=== PATIENT | female | born 1950 | race Caucasian/White ===

== ENCOUNTER 2022-10-15 12:05 | Outpatient (REF) | payer MEDICARE, SELFPAY ==
[2022-10-15 12:21] LABS: MANUAL DIFF FLAG NO
[2022-10-15 13:42] LABS: Basophils Percent Auto 0.6 % (0-2); Eosinophils Absolute Auto 0.3 X10*3/uL (0.0-0.4); Eosinophils Percent Auto 4.9 % (0-4); Hematocrit 37.8 % (37.0-47.0); Hemoglobin 12.5 g/dl (12.0-16.0); Imm Gran Abs Auto 0.01 X10*3/uL (0.00-0.03); Imm Gran Pct Auto 0.2 % (0.0-0.4); Lymphocytes Absolute Auto 2.3 X10*3/uL (1.2-4.9); Lymphocytes Percent Auto 45.7 % (20-40); Mean Corpuscular HGB Conc 33.1 g/dl (31.0-35.0); Mean Corpuscular Hemoglobin 32.5 pg (27.0-33.0); Mean Corpuscular Volume 98.2 fL (80.0-98.0); Mean Platelet Volume 9.6 fL (9.4-12.3); Monocytes Absolute Auto 0.4 X10*3/uL (0.1-1.2); Monocytes Percent Auto 8.4 % (2-11); Neutrophils Absolute Auto 2.1 x10*3/uL (2.0-8.3); Neutrophils Percent Auto 40.2 % (45-73); Platelet Count 302 X10*3/uL (160-400); Red Blood Count 3.85 X10*6/uL (4.20-5.50); Red Cell Distribution Width 13.1 % (11.0-16.0); White Blood Count 5.1 X10*3/uL (4.8-10.8)
[2022-10-15 14:26] LABS: Alanine Aminotransferase 25 U/L (0-31); Albumin Level 4.3 g/dL (3.5-5.0); Alkaline Phosphatase 84 U/L (39-117); Anion Gap 10 (12-20); Aspartate Amino Transferase 28 U/L (5-31); Bilirubin Total 0.3 mg/dL (0.0-1.0); Blood Urea Nitrogen 16 mg/dL (9-16); Carbon Dioxide 28 mmol/L (22-29); Chloride 105 mmol/L (96-108); Estimated Glomerular Filt Rate > 60; Glucose Random 100 mg/dL (60-115); Potassium 4.3 mmol/L (3.3-5.1); Sodium 139 mmol/L (135-145); Total Protein 6.5 g/dL (6.5-8.0)
[2022-10-15 14:39] LABS: Phenytoin Dilantin 2.6 ug/mL (10.0-20.0)
[2022-10-24 07:48] LABS: Other Ref Test - Misc SEE EMR
== END 2022-10-15 12:06 | disposition home or self-care (01) ==
LOC: HO.LAB 12:05
PROVIDERS: Visit Provider Nurse Practitioner Family
DX: G62.9 Polyneuropathy, unspecified (principal); R25.2 Cramp and spasm; Z79.899 Other long term (current) drug therapy
CPT/HCPCS: 80053; 80185; 85025

== ENCOUNTER → 2023-03-25 11:28 | Outpatient (BNVA) | payer MEDICARE, SELFPAY | PROVIDERS: PCP Internal Medicine; Visit Provider Nurse Practitioner Family | DX: R25.2 Cramp and spasm (principal); G62.9 Polyneuropathy, unspecified; G25.81 Restless legs syndrome | CPT/HCPCS: 99212 ==

== ENCOUNTER 2023-08-25 10:46 | Outpatient (AMB) | payer MEDICARE, SELFPAY ==
--- NOTE | 2023-08-25 10:53 | MHC.OFFVIS ---
Intake Vital Signs 08/25/23 10:54 Height 5 ft 6.5 in Weight 175 lb BMI 27.8 BP 112/78 Blood Pressure Location Rt brachial Position Sitting Pulse 75 Pulse Source Pulse Oximeter Pulse Oximetry (%) 97 Oxygen Delivery Method Room Air Intake Visit Reasons: 4m follow up-Confirmed Intake Note: Patient presents for 4 month follow up. Patient states no issues or concerns, everythings the same. Allergies house dust Allergy (Unknown, Verified 08/25/23 11:02) Unknown Medication List - Last Reconciled 08/25/23 by JANUARY Lomas albuterol sulfate 90 mcg/actuation 1 inh inhalation Q4-6H PRN amlodipine 5 mg PO DAILY amoxicillin-pot clavulanate 875-125 mg 1 tab PO BID cetirizine (24Hour Allergy) 10 mg PO DAILY PRN cyanocobalamin (vitamin B-12) 1,000 mcg PO DAILY diclofenac sodium 1% grams topical BID-TID fluticasone propionate 50 mcg/actuation 2 sprays intranasal DAILY gabapentin 300 mg orally 5 x's per day; 90 days ipratropium bromide intranasal melatonin 10 mg PO BEDTIME PRN omeprazole 20 mg PO DAILY phenytoin sodium extended 100 mg PO TID potassium mg PO DAILY ropinirole 1 mg PO BEDTIME tacrolimus-niacinamide 0.1-4 % ea topical tiotropium-olodaterol 2.5-2.5 mcg/actuation (Stiolto Respimat) 2 puffs inhalation DAILY trihexyphenidyl 1 mg (1/2 x 2 mg) PO BID 30 days vitamin B complex (Super B [id number]) PO HPI HPI Comments History of Present Illness Details 73-yr-old female presents for f/u visit. Pt is currently being treated for a sinus infection. She is scheduled to have pulmonary eval following her sinusitis tx. She continues to have frequent svere cramps. Can occur in her thoracic region, but also elsewhere. Her fingers may spasms and become stuck/postured. When the cramps happen in her lower extremities- toes/feet/ankles she may lose her balance and fall. The cramps can happen at rest- for instance took a 5 hr flight and had cramps x's 4.5 of the 5 hrs. The cramps can occur when walking as well. She did not tolerate Trihexyohenidyl. While on vacation- she forget to take her medications - and states whether she took them or not- her cramps were the same. Her RLS s/s are stable- she may feel some restlessness in her legs say when watching TV/movie. She takes the requip which is helpful. [facility] Surgical History H/O rotator cuff surgery History of knee replacement procedure of right knee History of knee replacement procedure of left knee Family History Father Diabetes Myocardial infarction Brother Diabetes Myocardial infarction Mother Myocardial infarction Brother Myocardial infarction Sister Diabetes Dementia Social History Alcohol intake: current Alcohol intake frequency: holidays/special occasions only Patient Tobacco Use Status: Former Tobacco user Quit Date: 20 years ago Review of Systems Const All systems reviewed & are unremarkable except as noted in HPI and below Physical Exam Vital Signs: Last Vital Signs Pulse 75 08/25/23 10:54 BP 112/78 08/25/23 10:54 Pulse Ox 97 08/25/23 10:54 Oxygen Delivery Method Room Air 08/25/23 10:54 BMI result Body Mass Index 27.8 Const General: cooperative and no acute distress Orientation/consciousness: patient oriented x3 HEENT Head: Yes normocephalic Resp Effort & Inspection: normal respiratory effort and able to speak in complete sentences Neuro General: patient oriented x3, gait normal and CN's II-XI intact bilaterally Cognition (Neuro): normal cognition Motor exam (neuro): 5/5 motor strength present throughout Psych Appearance: grossly normal Mental Status: mental status grossly normal Speech and movement: Normal speech and movement present Affect: normal affect Attitude: cooperative Thought process: Normal thought process present Thought content: Normal thought content present Insight: Good insight present (Psych) Judgement: Good judgement present (Psych) Assessment & Plan Assessment & Plan (1) Cramp and spasm: Comment: anti-RAY AB- normal Code(s): R25.2 - Cramp and spasm (2) Restless leg syndrome: Code(s): G25.81 - Restless legs syndrome (3) Peripheral neuropathy: Code(s): G62.9 - Polyneuropathy, unspecified Plan For cramps/spasms- Stop Trihexyphenidyl- not tolerated. Trial Baclofen 10mg- start 1 tab qhs, may increase to 1 tab TID. Decrease Gabapentin 300mg po from 5 x's to 3 x's per day Slowly wean off phenytoin- does not seem to be helpful. Future considerations- Diazepam. For RLS: Continue Ropinirole 1-2mg qhs prn ? f/u in March (pt will be in [place] over the winter) or sooner prn new/worsening s/s. Medications: New baclofen 10 mg PO TID 30 days 90 tabs 3RF Discontinued trihexyphenidyl give with food (meal/snack) Discontinued Reason: Doctor's Order 1 mg (1/2 x 2 mg) PO BID 30 days 30 tabs 1RF Coding Level of Care Code Est Pt Level 4 (53357) Diagnoses Cramp and spasm R25.2 Restless leg syndrome G25.81 Peripheral neuropathy G62.9
[2023-08-25 10:54] VITALS: BP 112/78; PULSE 75; O2SAT 97; BMI 27.8
== END 2023-08-25 11:29 | disposition home or self-care (01) ==
PROVIDERS: Visit Provider Nurse Practitioner Family
DX: G25.81 Restless legs syndrome (principal); G62.9 Polyneuropathy, unspecified
CPT/HCPCS: 99214

== ENCOUNTER → 2023-08-25 10:46 | Outpatient (BNVA) | payer MEDICARE, SELFPAY | PROVIDERS: Visit Provider Nurse Practitioner Family | DX: G25.81 Restless legs syndrome (principal); G62.9 Polyneuropathy, unspecified; R25.2 Cramp and spasm | CPT/HCPCS: 99212 ==

== ENCOUNTER 2024-03-10 12:44 | Outpatient (REF) | payer MEDICARE, SELFPAY ==
[2024-03-10 16:57] LABS: MANUAL DIFF FLAG NO
[2024-03-10 16:59] LABS: Basophils Percent Auto 0.7 % (0-2); Eosinophils Absolute Auto 0.2 X10*3/uL (0.0-0.4); Eosinophils Percent Auto 4.2 % (0-4); Hematocrit 37.4 % (37.0-47.0); Hemoglobin 12.6 g/dl (12.0-16.0); Imm Gran Abs Auto 0.01 X10*3/uL (0.00-0.03); Imm Gran Pct Auto 0.2 % (0.0-0.4); Lymphocytes Absolute Auto 2.8 X10*3/uL (1.2-4.9); Lymphocytes Percent Auto 48.5 % (20-40); Mean Corpuscular HGB Conc 33.7 g/dl (31.0-35.0); Mean Corpuscular Volume 97.9 fL (80.0-98.0); Mean Platelet Volume 9.4 fL (9.4-12.3); Monocytes Absolute Auto 0.5 X10*3/uL (0.1-1.2); Monocytes Percent Auto 8.6 % (2-11); Neutrophils Absolute Auto 2.1 x10*3/uL (2.0-8.3); Neutrophils Percent Auto 37.8 % (45-73); Platelet Count 267 X10*3/uL (160-400); Red Blood Count 3.82 X10*6/uL (4.20-5.50); Red Cell Distribution Width 13.5 % (11.0-16.0); White Blood Count 5.7 X10*3/uL (4.8-10.8)
[2024-03-10 17:18] LABS: Alanine Aminotransferase 36 U/L (0-31); Albumin Level 4.2 g/dL (3.5-5.0); Alkaline Phosphatase 68 U/L (39-117); Anion Gap 13 (12-20); Aspartate Amino Transferase 37 U/L (5-31); Bilirubin Total 0.3 mg/dL (0.0-1.0); Blood Urea Nitrogen 16 mg/dL (9-16); Calcium 9.5 mg/dL (8.4-10.2); Carbon Dioxide 26 mmol/L (22-29); Chloride 105 mmol/L (96-108); Estimated Glomerular Filt Rate 52; Glucose Random 114 mg/dL (60-115); Sodium 140 mmol/L (135-145); Total Protein 6.8 g/dL (6.5-8.0)
== END 2024-03-10 12:45 | disposition home or self-care (01) ==
LOC: HO.HKASLDS 12:44
PROVIDERS: PCP Internal Medicine; Visit Provider Nurse Practitioner Family
DX: G62.9 Polyneuropathy, unspecified (principal); R20.2 Paresthesia of skin; R25.2 Cramp and spasm
CPT/HCPCS: 36415; 80053; 85025; 99212

== ENCOUNTER 2024-03-10 12:44 | Outpatient (AMB) | payer MEDICARE, SELFPAY ==
--- NOTE | 2024-03-10 12:51 | MHC.OFFVIS ---
Vital Signs 03/10/24 12:52 Height 5 ft 6.5 in Weight 172 lb BMI 27.3 BP 112/70 Blood Pressure Location Rt brachial Position Sitting Pulse 75 Pulse Source Pulse Oximeter Pulse Oximetry (%) 96 Oxygen Delivery Method Room Air Intake Visit Reasons: 7 mnts f/u appt - LVM w/ add Intake Note: Patient presents for 7 months follow up. Patient still experiencing muscle cramps nothing has chnaged Allergies house dust Allergy (Unknown, Verified 03/10/24 12:55) Unknown Medication List - Last Reconciled 03/10/24 by JANUARY Lomas albuterol sulfate 90 mcg/actuation 1 inh inhalation Q4-6H PRN amlodipine 5 mg PO DAILY amoxicillin-pot clavulanate 875-125 mg 1 tab PO BID baclofen 10 mg PO TID 30 days carbamazepine ER (Tegretol XR) 100 mg PO BID 30 days celecoxib (Celebrex) 50 mg PO BID cetirizine (24Hour Allergy) 10 mg PO DAILY PRN cyanocobalamin (vitamin B-12) 1,000 mcg PO DAILY diclofenac sodium 1% grams topical BID-TID fluticasone propionate 50 mcg/actuation 2 sprays intranasal DAILY gabapentin 300 mg orally 5 x's per day; 90 days ipratropium bromide intranasal melatonin 10 mg PO BEDTIME PRN omeprazole 20 mg PO DAILY phenytoin sodium extended 100 mg PO TID potassium mg PO DAILY ropinirole 1 mg PO BEDTIME tacrolimus-niacinamide 0.1-4 % ea topical tiotropium-olodaterol 2.5-2.5 mcg/actuation (Stiolto Respimat) 2 puffs inhalation DAILY vitamin B complex (Super B [id number]) PO HPI Comments Details: 73-yr-old female presents for f/u visit. Pt reports while she was in [place], She had a recent trigger finger repair due to acute onset of right hand pain. She is due to have a RUE CTS repair, and right thumb repair. Pt continues to have muscle cramps with rest and with movement. The cramps can come on in sleep- recently bilateral knees locked while sleeping. If sleeping and open her eyes, her whole body can tighten. Turning to look at something, grabbing something will induce cramps. Cramps can occur in her back, either or both arms and legs, feet. She may have a a couple of days w/o cramps, but then the cramps start again. Baclofen was not very helpful. Still using gabapentin. She decrease phenytoin to 1 cap per day. She also notes bilateral posterior ear and left inner ear and pinna, and bilateral facial itchiness. Once she starts scratching, it is hard to stop. She had a fall in [place] around 02/18/24, bumped into the edge of a wall, hit her head on the wall, and landed on her knees. Left lateral eye and cheek was bruised, bruising subsided but still has left mandibular discomfort. She also has left foot- feels cold (but not to the touch) and tingling (like it is falling asleep). Left ankle internally rotates- has a brace. She notes she has been gradually having more difficulty walking. 03/08/24, RUE EMG/NCS: IMPRESSION: ?Abnormal study. -There is nerve conduction study evidence of a [id number] right median mononeuropathy at the wrist (consistent with a clinical diagnosis of carpal tunnel syndrome), including focal sensory fiber demyelination and sensory greater than motor axon loss. ?There is EMG evidence of acute and chronic denervation affecting the right abductor pollicis brevis muscle. -No nerve conduction study evidence of a right ulnar neuropathy at the wrist or elbow (cubital tunnel syndrome) or superficial radial neuropathy. -No nerve conduction study evidence of a large-fiber sensorimotor polyneuropathy affecting the right upper extremity. -No EMG evidence of a right brachial plexopathy or right C6-T1 radiculopathies. [facility] Surgical History H/O rotator cuff surgery History of knee replacement procedure of right knee History of knee replacement procedure of left knee Family History Father Diabetes Myocardial infarction Brother Diabetes Myocardial infarction Mother Myocardial infarction Brother Myocardial infarction Sister Diabetes Dementia Social History Alcohol intake: current Alcohol intake frequency: holidays/special occasions only Patient Tobacco Use Status: Former Tobacco user Quit Date: 20 years ago Review of Systems Const All systems reviewed & are unremarkable except as noted in HPI and below Physical Exam Vital Signs: Last Vital Signs Pulse 75 03/10/24 12:52 BP 112/70 03/10/24 12:52 Pulse Ox 96 03/10/24 12:52 Oxygen Delivery Method Room Air 03/10/24 12:52 BMI result Body Mass Index 27.3 Const General: cooperative and no acute distress Orientation/consciousness: patient oriented x3 HEENT Head: Yes normocephalic Resp Effort & Inspection: normal respiratory effort and able to speak in complete sentences Neuro Other: Mild decreased strength in bilateral lower extremities 5- out of 5. BLE decreased foot taps, more so on left General: patient oriented x3, gait normal and CN's II-XI intact bilaterally Cognition (Neuro): normal cognition Psych Appearance: grossly normal Mental Status: mental status grossly normal Speech and movement: Normal speech and movement present Affect: normal affect Attitude: cooperative Thought process: Normal thought process present Assessment & Plan Assessment & Plan (1) Cramp and spasm: Comment: anti-RAY AB- normal Code(s): R25.2 - Cramp and spasm Category: Medical (2) Gait difficulty: Code(s): R26.9 - Unspecified abnormalities of gait and mobility Category: Medical (3) Paresthesia: Code(s): R20.2 - Paresthesia of skin Category: Medical Plan Patient advised to undergo brain MRI with and without contrast due to paresthesias, gait changes, asymmetric foot taps, cramps and spasms. We will check baseline CBC and CMP. For cramps/spasms- Trial carbamazepine ER 100 mg b.i.d.- may start after her upcoming trip. Baclofen 10mg- 1 tab TID prn Gabapentin 300mg po 3-5 x's per day Slowly wean off phenytoin- does not seem to be helpful. Previous trials: Trihexyphenidyl not tolerated. Future considerations- Diazepam. ? For RLS: Continue Ropinirole 1-2mg qhs prn Orders: Orders MR head/brain wo/w con Today R20.2 - Paresthesia of skin, R25.2 - Cramp and spasm, R26.9 - Unspecified abnormalities of gait and mobility Comprehensive Met. Panel Today G62.9 - Polyneuropathy, unspecified, R20.2 - Paresthesia of skin, R25.2 - Cramp and spasm Complete Blood Count Auto Diff Today G62.9 - Polyneuropathy, unspecified, R20.2 - Paresthesia of skin, R25.2 - Cramp and spasm Medications: New carbamazepine ER (Tegretol XR) 100 mg PO BID 60 tabs 3RF 30 days Refilled gabapentin 300 mg orally 5 x's per day; 540 caps 1RF 90 days Coding Level of Care Code Est Pt Level 4 (64809) Diagnoses Cramp and spasm R25.2 Gait difficulty R26.9 Paresthesia R20.2
[2024-03-10 12:52] VITALS: BP 112/70; PULSE 75; O2SAT 96; BMI 27.3
== END 2024-03-10 13:56 | disposition home or self-care (01) ==
PROVIDERS: PCP Internal Medicine; Visit Provider Nurse Practitioner Family
DX: R25.2 Cramp and spasm (principal); R26.9 Unspecified abnormalities of gait and mobility; R20.2 Paresthesia of skin
CPT/HCPCS: 99214

== ENCOUNTER 2025-03-31 12:43 | Outpatient (AMB) | payer MEDICARE, SELFPAY ==
--- OUTSIDE RECORDS SUMMARY | 2025-03-31 12:46 | XMS_ITS | Encounter Summary ---
Author Organization [facility] Address [address] [place] [address] Care Team Providers Care Marker Shipments Name Role Phone John Gallego MD Primary Care Provider Unavailab le Encounter Details Date Type Department Care Team (Late Contact Info) Description 02/23/2025 Lab Requisition [facility] - Main Lab [address] [facility] [place] [phone] Valente Layne PA [address] [place] [address] Cystitis, unspecified without hematuria; Urinary tract infection, site not specified Social History Tobacco Use Types Packs/Day Years Used Date Smoking Tobacco: Never Assessed Comments Unknown Sex and Gender Information Value Date Recorded Sex Assigned at Not on file Legal Sex Female 6:02 AM EST Gender Identity Not on file Sexual Orientation Not on file documented as of this encounter Plan of Treatment Upcoming Encounters Date Type Department Care Team (Late Contact Info) Description 06/03/2025 11:20 AM EDT Office Visit Gastroenterology - [address] [facility] [address] [place] [phone] Elmira Weiss PA [address] [facility] [address] [place] [address] documented as of this encounter Procedures Procedure Name Priority Date/Time Associated Diagnosis Comments CULTURE URINE Routine 02/23/2025 12:00 AM EDT Cystitis, unspecified without hematuria Urinary tract infection, site not specified documented in this encounter Results * Culture urine (02/23/2025 12:00 AM EDT) Culture, Urine 10,000-49,000 CFU/mL Mixed urogenital bela, no uropathogens present. Suggest repeat specimen if clinically indicated. 02/24/2025 2:24 PM EDT [facility] Urine Urine specimen obtained by clean catch procedure / Unknown 02/23/2025 02/23/2025 6:14 PM EDT [facility] MICROBIOLOGY - [facility]ID WALKER Final Result [facility] [address] [place] [address], documented in this encounter Visit Diagnoses Diagnosis Cystitis, unspecified without hematuria Urinary tract infection, site not specified documented in this encounter Care Teams Marker Shipments Relationship Specialty Start Date End Date John Gallego MD PCP - General Internal Medicine 09/29/24 documented as of this encounter
--- OUTSIDE RECORDS SUMMARY | 2025-03-31 12:46 | XMS_ITS | Clinical Summary ---
Author Organization [facility] Address [address] [place] [address] Care Team Providers Care Legal Clerk Name Role Phone Nir Sun MD Primary Care Provider [phone]- [phone] Allergies No known active allergies Medications albuterol (PROVENTIL;VENT STEPHANIE) 90 mcg/actuation inhaler 0 Active gabapentin (NEURONTIN) 300 mg capsule 0 Active phenytoin (DILANTIN) 100 mg ER capsule 0 Active pantoprazole (PROTONIX) 40 mg EC tablet Take 40 mg by mouth 1 (one) time each day. 0 Active atorvastatin (LIPITOR) 20 mg tablet TAKE 1 TABLET BY MOUTH DAILY,X90 DAYS,INSTR AFTER SUPPER 0 Active fluticasone propionate (FLONASE) 50 mcg/actuation nasal spray Administer 2 sprays into each nostril 1 (one) time each day. 0 Active budesonide-form oteroL (SYMBICORT) 160-4.5 mcg/actuation inhaler Inhale 2 puffs 2 (two) times a day. Rinse mouth with water after use to reduce aftertaste and incidence of candidiasis. Do not swallow. Active tacrolimus (PROTOPIC) 0.1 % ointment Apply topically 2 (two) times a day. Active Social History Tobacco Use Types Packs/Day Years Used Date Smoking Tobacco: Former Smokeless Tobacco: Never Comments Unknown Sex and Gender Information Value Date Recorded Sex Assigned at Not on file Legal Sex Female 2:36 PM EST Gender Identity Not on file Sexual Orientation Not on file Last Filed Vital Signs Vital Sign Reading Time Taken Comments Blood Pressure 125/72 05/22/2023 7:00 PM EDT Pulse 63 05/22/2023 7:00 PM EDT Temperature 36.6 ??C (97.8 ??F) 05/22/2023 4:00 PM ED T Respiratory Rate 12 05/22/2023 7:00 PM EDT Oxygen Saturation 93% 05/22/2023 7:00 PM EDT Inhaled Oxygen Concentration - - Weight 77.1 kg (170 lb) 05/19/2020 2:10 PM EDT Height 167.6 cm (5' 6 ) 05/19/2020 2:10 PM EDT Body Mass Index 27.44 05/19/2020 2:10 PM EDT Plan of Treatment Health Maintenance Due Date Last Done Comments CT Colonography 1949 Colonoscopy 1950 Colorectal Cancer Screening 1949 FIT-DNA 1949 FIT 1949 FOBT 1950 Hepatitis C Screening 1950 Mammogram 1949 Sigmoidoscopy 1949 Medicare Annual Wellness Visit 1967 Pneumococcal Vaccine: 50+ Years (1 of 2 - PCV) 1968 Tdap and Td Vaccines Adult 1968 Osteoporosis Screening 1999 Zoster Vaccines (1 of 2) 1999 Fall Risk Screening 2014 RSV 60+ (1 - 1-dose 75+ series) 2024 COVID-19 Vaccine (3 - 2023-2 5 season) 2024 02/14/2021, 01/16/2021 Influenza Vaccine (Season Ended) 2025 HIB Vaccines Aged Out No longer eligi ble based on patient's age to complete this topic HPV Vaccines Aged Out No longer eligi ble based on patient's age to complete this topic Hepatitis A Vaccines Aged Out No long er eligible based on patient's age to complete this topic IPV Vaccines Aged Out No longer eligi ble based on patient's age to complete this topic Meningococcal Vaccine Aged Out No davon shawn eligible based on patient's age to complete this topic RSV <20 Months Aged Out No longer adri gible based on patient's age to complete this topic Insurance Care Teams Legal Clerk Relationship Specialty Start Date End Date Nir Sun MD [address] [place] [address] PCP - General Internal Medicine 05/22/23
--- OUTSIDE RECORDS SUMMARY | 2025-03-31 12:46 | XMS_ITS | Patient Health Record ---
Author Organization [facility] Address [address] [place], [place] [id number] Care Team Providers Care Svp Digital Sales Name Role Phone NONE, NONE Primary Care Provider RED Umana Unavailable [phone] Reason For Referral No Information Encounters Encounter Location Date Provider Diagnosis [facility] [address] [place], [place] [id number] 12/22/2024 RED CALLES Plan Of Treatment No Information Insurance Providers Payer Name Payer Address Payer Phone Subscriber Number Group Number Insured Name Patient Relationship to Insured Coverage Start Date Coverage End Date [place], [place] [id number] JADA HARRIS Self - patient is the insured
--- OUTSIDE RECORDS SUMMARY | 2025-03-31 12:46 | XMS_ITS | Encounter Summary ---
Author Organization [facility] Address [address] [place] [address] Care Team Providers Care Barrel Reamer Name Role Phone Nir Sun MD Primary Care Provider [phone]- [phone] Encounter Details Date Type Department Care Team (Late st Contact Info) Description 05/22/2023 Procedure Pass [facility] Radiology, [facility] (CT Scan) [address] [place] [id number] Social History Tobacco Use Types Packs/Day Years Used Date Smoking Tobacco: Former Smokeless Tobacco: Never Comments Unknown Sex and Gender Information Value Date Recorded Sex Assigned at Not on file Legal Sex Female 2:36 PM EST Gender Identity Not on file Sexual Orientation Not on file documented as of this encounter Plan of Treatment Not on file documented as of this encounter Visit Diagnoses Not on filedocumented in this encounter Care Teams Barrel Reamer Relationship Specialty Start Date End Date Nir Sun MD [address] [place] [address] PCP - General Internal Medicine 05/22/23 documented as of this encounter
--- OUTSIDE RECORDS SUMMARY | 2025-03-31 12:46 | XMS_ITS ---
Author Name [facility] Organization Unknown Encounters Encounter Type Encounter Reason Primary Diagnosis Location Date Emergency Pain in thoracic spine [facility] 05/22/2023 Care Team Organization Name Specialty Phone Email Start Date End Da [facility] 05/23/2023 [facility] 05/22/202305/10
--- OUTSIDE RECORDS SUMMARY | 2025-03-31 12:46 | XMS_ITS | Clinical Summary ---
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 Do not crush, chew, or split. 90 tablet 3 02/25/2025 Active Encounters Date Type Department Care Team Description 03/23/2025 10:12 AM EDT - 03/23/2025 11:59 PM EDT Hospital Encounter [facility] Ultrasound [address] [place] [phone] Abnormal LFTs; Gastroesophageal reflux disease, unspecified whether esophagitis present; Weight gain Discharge Disposition: Home or Self Care 03/08/2025 Telephone Gastroenterology - [address] [phone] Ghazala Parker MA Results 03/04/2025 Telephone Gastroenterology - [address] [phone] Lizzette Montiel MA 02/25/2025 10:30 AM EDT Office Visit Gastroenterology - [address] [place] [address] [phone] Therese Elliott NP Abnormal LFTs (Primary Dx); Gastroesophageal reflux disease, unspecified whether esophagitis present; Weight gain 02/23/2025 Lab Requisition [facility] - Main Lab [address] [facility] [place] [phone] Valente Layne PA Cystitis, unspecified without hematuria; Urinary tract infection, site not specified from Last 3 Months Social History Tobacco Use Types Packs/Day Years Used Date Smoking Tobacco: Never Assessed Comments Unknown Sex and Gender Information Value Date Recorded Sex Assigned at Not on file Legal Sex Female 6:02 AM EST Gender Identity Not on file Sexual Orientation Not on file Last Filed Vital Signs Vital Sign Reading Time Taken Comments Blood Pressure - - Pulse - - Temperature - - Respiratory Rate - - Oxygen Saturation - - Inhaled Oxygen Concentration - - Weight 78 kg (172 lb) 02/25/2025 10:23 AM EDT Height 167.6 cm (5' 6 ) 02/25/2025 10:23 AM EDT Body Mass Index 27.76 02/25/2025 10:23 AM EDT Plan of Treatment Upcoming Encounters Date Type Department Care Team (Late st Contact Info) Description 06/03/2025 11:20 AM EDT Office Visit Gastroenterology - [address] [phone] Elmira Weiss PA [address] [address] Health Maintenance Due Date Last Done Comments DTaP,Tdap,and Td Vaccines (1 - Tdap) 1969 Zoster Vaccines (2 of 2) 12/19/2020 10/24/2020 COVID-19 Vaccine (4 - season) 2024 09/15/2023, 08/21/2022, 10/19/2021 Cholesterol Screening (Lipid Panel) 10/01/2024 Depression Screening 10/01/2024 Falls Risk Assessment 10/01/2024 Hepatitis C Screening 10/01/2024 Medicare Annual Wellness Visit 10/01/2024 Osteoporosis Screening (Bone Density Screening) 10/01/2024 Social Influencers of Health Screening 10/01/2024 Hypertension/CHF/CAD Annual BMP Blood Test 02/25/2026 02/25/2025, 05/22/2023 Colorectal Cancer Screening: Colonoscopy 03/10/2035 03/10/2025 RSV Immunization Adult Patients Completed 09/15/2023 Influenza Vaccine Completed 07/19/2024, , 08/12/2022, Additional history exists Pneumococcal Vaccine: 50+ Years Completed 07/27/2024, 10/13/2019 HIB Vaccines Aged Out No longer eligi ble based on patient's age to complete this topic HPV Vaccines Aged Out No longer eligi ble based on patient's age to complete this topic Hepatitis A Vaccines Aged Out No long er eligible based on patient's age to complete this topic Hepatitis B Vaccines Aged Out No long er eligible based on patient's age to complete this topic IPV Vaccines Aged Out No longer eligi ble based on patient's age to complete this topic MMR Vaccines Aged Out No longer eligi ble based on patient's age to complete this topic Meningococcal ACWY Vaccine Aged Out N o longer eligible based on patient's age to complete this topic Meningococcal B Vaccine Aged Out No l onger eligible based on patient's age to complete this topic RSV Immunization Patients Under 20 months Aged Out No longer eligible based on patient's age to complete this topic Varicella Vaccines Aged Out No longer eligible based on patient's age to complete this topic Procedures Procedure Name Priority Date/Time Associated Diagnosis Comments US ABDOMEN LIMITED Routine 03/23/2025 10 :36 AM EDT Abnormal LFTs Gastroesophageal reflux disease, unspecified whether esophagitis present Weight gain COLONOSCOPY Routine 03/10/2025 10:13 AM EDT CBC WITH AUTO DIFFERENTIAL Routine 02/25/2025 11:04 AM EDT Abnormal LFTs Gastroesophageal reflux disease, unspecified whether esophagitis present Weight gain FERRITIN Routine 02/25/2025 11:04 AM EDT Abnormal LFTs GERD (gastroesophageal reflux disease) Weight gain IRON AND TIBC Routine 02/25/2025 11:04 AM EDT Abnormal LFTs GERD (gastroesophageal reflux disease) Weight gain THYROID STIMULATING HORMONE Routine 02/25/2025 11:04 AM EDT Abnormal LFTs Gastroesophageal reflux disease, unspecified whether esophagitis present Weight gain VITAMIN B12 Routine 02/25/2025 11:04 AM EDT Abnormal LFTs Gastroesophageal reflux disease, unspecified whether esophagitis present Weight gain C-REACTIVE PROTEIN Routine 02/25/2025 11 :04 AM EDT Abnormal LFTs Gastroesophageal reflux disease, unspecified whether esophagitis present Weight gain COMPREHENSIVE METABOLIC PANEL Routine 02/25/2025 11:04 AM EDT Abnormal LFTs Gastroesophageal reflux disease, unspecified whether esophagitis present Weight gain CBC AND DIFFERENTIAL Routine 02/25/2025 11:04 AM EDT Abnormal LFTs Gastroesophageal reflux disease, unspecified whether esophagitis present Weight gain CULTURE URINE Routine 02/23/2025 12:00 AM EDT Cystitis, unspecified without hematuria Urinary tract infection, site not specified from Last 3 Months Results * US Abdomen Limited (03/23/2025 10:36 AM EDT) Anatomical Region Laterality Modality Body Ultrasound 03/23/2025 11:3 0 AM EDT Impressions 03/23/2025 12:30 PM EDT No acute findings. 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 -------- FINAL REPORT -------- Dictated By: Reza Segundo Dictated Date: 03/23/2025 11:30 ET Assigned Physician: Reza Segundo Reviewed and Electronically Signed By: Reza Segundo Signed Date: 03/23/2025 12:30 ET Workstation ID: [id number] Transcribed By: Self Edit Transcribed Date: 03/23/2025 11:30 ET Narrative 03/23/2025 12:30 PM EDT PROCEDURE: Right upper quadrant ultrasound. HISTORY: abnormal LFT. COMPARISON: 03/18/2016. TECHNIQUE: Grayscale, color Doppler, and spectral Doppler ultrasound evaluation of the right upper quadrant of the abdomen. FINDINGS: LIVER: Normal echotexture. ??No focal lesion. ??Normal flow in the main portal vein. BILIARY: Normal caliber biliary tree for age. ??Mild nodularity and associated artifact along the gallbladder wall suggestive of adenomyomatosis. ??Negative sonographic Pereira sign. PANCREAS: Visualized portions are normal. RIGHT KIDNEY: Normal size and echotexture. ??No hydronephrosis. ??16 mm upper pole cortical cyst. Procedure Note Reza Segundo MD - 03/23/2025 PROCEDURE: Right upper quadrant ultrasound. HISTORY: abnormal LFT. COMPARISON: 03/18/2016. TECHNIQUE: Grayscale, color Doppler, and spectral Doppler ultrasoundevaluation of the right upper quadrant of the abdomen. FINDINGS: LIVER: Normal echotexture. No focal lesion. Normal flow in the mainportal vein. BILIARY: Normal caliber biliary tree for age. Mild nodularity andassociated artifact along the gallbladder wall suggestive ofadenomyomatosis. Negative sonographic Pereira sign. PANCREAS: Visualized portions are normal. RIGHT KIDNEY: Normal size and echotexture. No hydronephrosis. 16 mmupper pole cortical cyst. IMPRESSION: No acute findings. 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 -------- FINAL REPORT -------- Dictated By: Reza Segundo Dictated Date: 03/23/2025 11:30 ET Assigned Physician: Reza Segundo Reviewed and Electronically Signed By: Reza Segundo Signed Date: 03/23/2025 12:30 ET Workstation ID: [id number] Transcribed By: Self Edit Transcribed Date: 03/23/2025 11:30 ET us Therese Elliott NP IMG US PROCEDURES Final Resul t * COLONOSCOPY (03/10/2025 10:13 AM EDT) Anatomical Region Laterality Modality Endoscopy us Historical Provider GI~PROCEDURE ORDERABLES F inal Result * (ABNORMAL) CBC auto differential (02/25/2025 11:04 AM EDT) Pathologist [facility] WBC 4.4(L) 4.8 - 10.8 K/mcL LAB HEMETOLOGY METHOD 02/25/2025 1:48 PM EDT [facility] RBC 3.90 3.80 - 4.80 M/mcL LAB HEMETOLOGY METHOD 02/25/2025 1:48 PM EDT [facility] Hemoglobin 12.7 11.5 - 16.0 g/dL LAB HEMETOLOGY METHOD 02/25/2025 1:48 PM EDT [facility] Hematocrit 39.0 35.0 - 47.0 % LAB HEMETOLOGY METHOD 02/25/2025 1:48 PM EDT [facility] MCV 99.7(H) 79.0 - 98.0 FL LAB HEMETOLOGY METHOD [facility] MCH 32.5(H) 27.0 - 32.0 pcg LAB HEMETOLOGY METHOD 02/25/2025 1:48 [facility] MCHC 32.6 32.0 - 37.0 g/dL LAB HEMETOLOGY METHOD 02/25/2025 1:48 [facility] RDW 13.6 11.0 - 15.0 % LAB HEMETOLOGY METHOD 02/25/2025 1:48 [facility] Platelets 285 130 - 400 K/mcL LAB HEMETOLOGY METHOD 02/25/2025 1:48 PM EDT [facility] MPV 9.6 7.0 - 11.0 FL LAB HEMETOLOGY METHOD 02/25/2025 1:48 PM EDT [facility] NRBC 0.0 <1.0 % LAB HEMETOLOGY METHOD 02/25/2025 1:48 PM EDT [facility] NRBC Absolute 0.00 <0.10 K/mcL LAB HEMETOLOGY METHOD 02/25/2025 1:48 PM EDT [facility] Neutrophils Relative 45.8 % LAB HEMETOLOGY METHOD 02/25/2025 1:48 PM EDT [facility] Lymphocytes Relative 39.5 % LAB HEMETOLOGY METHOD [facility]20[facility] Monocytes Relative 10.3 % LAB HEMETOLOGY METHOD 02/25/2025 1:48 PM EDT [facility] Eosinophils Relative 3.7 % LAB HEMETOLOGY METHOD 02/25/2025 1:48 PM EDT [facility] Basophils Relative 0.5 % LAB HEMETOLOGY METHOD 02/25/2025 1:48 PM [facility] Immature Granulocytes Relative 0.2 % LAB HEMETOLOGY METHOD 02/25/2025 1:48 PM [facility] Neutrophils Absolute 1.99 1.50 - 7.00 K/mcL LAB HEMETOLOGY METHOD 02/25/2025 1:48 [facility] Lymphocytes Absolute 1.72 1.00 - 5.00 K/mcL LAB HEMETOLOGY METHOD 02/25/2025 1:48 PM [facility] Monocytes Absolute 0.45 0.20 - 1.00 K/mcL LAB HEMETOLOGY METHOD 02/25/2025 1:48 PM [facility] Eosinophils Absolute 0.16 0.00 - 0.50 K/mcL LAB HEMETOLOGY METHOD 02/25/2025 1:48 PM [facility] Basophils Absolute 0.02 0.00 - 0.20 K/mcL LAB HEMETOLOGY METHOD 02/25/2025 1:48 PM [facility] Immature Granulocytes Absolute 0.01 0.00 - 0.03 K/mcL LAB HEMETOLOGY METHOD 02/25/2025 1:48 PM [facility] Blood Venous blood specimen / Unknown Venipuncture / Unknown 02/25/2025 11:04 AM EDT 02/25/2025 1:41 PM EDT us Therese Elliott KNOCKOUT MAN LAB BLOOD ORDERABLES Final Re sult Performing Organization Address [facility] Co de Phone Number [facility] [address] [place] [address], [place] [phone] * Iron and TIBC (02/25/2025 11:04 AM EDT) Iron 76 40 - 150 mcg/dL LAB CHEMISTRY METHOD 02/25/2025 4:50 PM EDT [facility] TIBC 377 250 - 450 mcg/dL LAB CHEMISTRY METHOD 02/25/2025 4:50 PM EDT [facility] Iron Saturation 20 15 - 50 % LAB CHEMISTRY METHOD 02/25/2025 4:50 PM EDT [facility] Blood Venous blood specimen / Unknown Venipuncture / Unknown 02/25/2025 11:04 AM EDT 02/25/2025 1:47 PM EDT us Therese Elliott NP LAB BLOOD ORDERABLES Final Re sult Performing Organization Address [facility] de Phone Number [facility] [address] [place] [address], [place] [phone] * C-reactive protein (02/25/2025 11:04 AM EDT) C-Reactive Protein <0.29 <=0.50 mg/dL LAB CHEMISTRY METHOD 02/25/2025 4:24 PM EDT [facility] Blood Venous blood specimen / Unknown Venipuncture / Unknown 02/25/2025 11:04 AM EDT 02/25/2025 1:47 PM EDT us Therese Elliott NP LAB BLOOD ORDERABLES Final Re sult Performing Organization Address [facility]/ZIP Co de Phone Number [facility] [address] [place] [address], [place] [phone] * Thyroid stimulating hormone (02/25/2025 11:04 AM EDT) Pathologist [facility] TSH 1.69 0.40 - 4.00 mcIU/mL LAB CHEMISTRY METHOD 02/25/2025 4:55 PM EDT [facility] Blood Venous blood specimen / Unknown Venipuncture / Unknown 02/25/2025 11:04 AM EDT 02/25/2025 1:47 PM EDT Therese Elliott KNOCKOUT MAN LAB BLOOD ORDERABLES Final Re sult Performing Organization Address [facility]/ZIP Co de Phone Number [facility] [address] [place] [address], * Ferritin (02/25/2025 11:04 AM EDT) [facility] Ferritin 125 8 - 252 ng/mL LAB CHEMISTRY METHOD 02/25/2025 4:50 PM EDT [facility] Blood Venous blood specimen / Unknown Venipuncture / Unknown 02/25/2025 11:04 AM EDT 02/25/2025 1:47 PM EDT Therese Elliott KNOCKOUT MAN LAB BLOOD ORDERABLES Final Re sult Performing Organization Address City/[facility]/ZIP Co de Phone Number [facility] [address] [place] [address], [place] [phone] * Vitamin B12 (02/25/2025 11:04 AM EDT) Pathologist [facility] Vitamin B-12 525 250 - 900 pcg/mL LAB CHEMISTRY METHOD 02/25/2025 4:50 PM EDT [facility] Blood Venous blood specimen / Unknown Venipuncture / Unknown 02/25/2025 11:04 AM EDT 02/25/2025 1:47 PM EDT us Therese Elliott KNOCKOUT MAN LAB BLOOD ORDERABLES Final Re sult [facility] [address] [place] [address], [place] [phone] * Comprehensive metabolic panel (02/25/2025 11:04 AM EDT) Sodium 138 133 - 145 mmol/L LAB CHEMISTRY METHOD 02/25/2025 4:50 PM T [facility] Potassium 4.4 3.5 - 5.5 mmol/L LAB CHEMISTRY METHOD 02/25/2025 4:50 PM [facility] Chloride 107 96 - 110 mmol/L LAB CHEMISTRY METHOD 02/25/2025 4:50 PM [facility] CO2 28 21 - 32 mmol/L LAB CHEMISTRY METHOD 02/25/2025 4:50 PM [facility] Anion Gap 3 3 - 11 LAB CHEMISTRY METHOD 02/25/2025 4:50 PM [facility] Glucose 92 70 - 100 mg/dL LAB CHEMISTRY METHOD 02/25/2025 4:50 PM [facility] BUN 18 5 - 25 mg/dL LAB CHEMISTRY METHOD 02/25/2025 4:50 PM [facility] Creatinine 0.90 0.50 - 1.10 mg/dL LAB CHEMISTRY METHOD 02/25/2025 4:50 PM [facility] eGFR 67 >=60 mL/min/1. 73m2 LAB CHEMISTRY METHOD 02/25/2025 4:50 PM [facility] Comment:Calculation based on the??Chronic Kidney Disease Epidemiology Collaboration (CKD-EPI) equation refit??without adjustment for race. BUN/Creatinine Ratio 20.0 LAB CHEMISTRY METHOD 02/25/2025 4:50 PM [facility] Calcium 9.0 8.5 - 10.5 mg/dL LAB CHEMISTRY METHOD 02/25/2025 4:50 PM EDT [facility] AST (SGOT) 36 10 - 42 unit/L LAB CHEMISTRY METHOD 02/25/2025 4:50 PM [facility] ALT (SGPT) 40 10 - 60 unit/L LAB CHEMISTRY METHOD 02/25/2025 4:50 PM EDT [facility] Alkaline Phosphatase 70 42 - 121 unit/L LAB CHEMISTRY METHOD 02/25/2025 4:50 PM [facility] Total Protein 6.7 6.0 - 8.0 g/dL LAB CHEMISTRY METHOD 02/25/2025 4:50 PM [facility] Albumin 3.8 3.2 - 5.0 g/dL LAB CHEMISTRY METHOD 02/25/2025 4:50 PM [facility] Total Bilirubin 0.4 0.0 - 1.4 mg/dL LAB CHEMISTRY METHOD 02/25/2025 4:50 PM [facility] Blood Venous blood specimen / Unknown Venipuncture / Unknown 02/25/2025 11:04 AM EDT 02/25/2025 1:47 PM EDT us Therese Elliott NP LAB BLOOD ORDERABLES Final Re sult [facility] [address] [place] [address], * Culture urine (02/23/2025 12:00 AM EDT) Culture, Urine 10,000-49,000 CFU/mL Mixed urogenital bela, no uropathogens present. Suggest repeat specimen if clinically indicated. 02/24/2025 2:24 PM EDT [facility] Urine Urine specimen obtained by clean catch procedure / Unknown 02/23/2025 02/23/2025 6:14 PM EDT [facility] MICROBIOLOGY - GENERAL DAVID WALKER Final Result MELY BERGFIELD GREG ([facility]) [facility] [address] [place] [address], [place] [phone] from Last 3 Months Insurance [employer] Care Teams [employer] Tower Loader Relationship Specialty Start Date End Date John Gallego MD PCP - General Internal Medicine 09/29/24
--- OUTSIDE RECORDS SUMMARY | 2025-03-31 12:46 | XMS_ITS ---
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 Generated for Inezi ankit/Yasir/eTransmitting on:?03/31/2025 12:46 PM EDT
[2025-03-31 13:17] VITALS: BP 122/78; PULSE 76; O2SAT 96; BMI 28.0
--- NOTE | 2025-03-31 13:17 | MHC.OFFVIS ---
Vital Signs 03/31/25 13:17 Height 5 ft 6.5 in Weight 176 lb BMI 28.0 BP 122/78 Blood Pressure Location Rt brachial Position Sitting Pulse 76 Pulse Source Pulse Oximeter Pulse Oximetry (%) 96 Oxygen Delivery Method Room Air Intake Visit Reasons: Follow up Intake Note: Patient presents follow up for cramps and spasms. Still getting cramps Allergies house dust Allergy (Unknown, Verified 03/31/25 13:20) Unknown Medication List - Last Reconciled 03/31/25 by JANUARY Lomas albuterol sulfate 90 mcg/actuation 1 inh inhalation Q4-6H PRN amlodipine 5 mg PO DAILY baclofen 10 mg PO TID 30 days carbamazepine ER (Tegretol XR) 100 mg PO BID 30 days celecoxib (Celebrex) 50 mg PO BID cetirizine (24Hour Allergy) 10 mg PO DAILY PRN cyanocobalamin (vitamin B-12) 1,000 mcg PO DAILY diclofenac sodium 1% grams topical BID-TID fluticasone propionate 50 mcg/actuation 2 sprays intranasal DAILY gabapentin 300 mg orally 5 x's per day; 90 days ipratropium bromide intranasal melatonin 10 mg PO BEDTIME PRN omeprazole 20 mg PO DAILY phenytoin sodium extended 100 mg PO TID potassium mg PO DAILY ropinirole 1 mg PO BEDTIME tacrolimus-niacinamide 0.1-4 % ea topical tiotropium-olodaterol 2.5-2.5 mcg/actuation (Stiolto Respimat) 2 puffs inhalation DAILY vitamin B complex (Super B [id number]) PO HPI Comments Details: 74-yr-old female presents for f/u visit of generalized muscle cramps and RLS. Patient was last seen 1 year ago by myself. 04/13/2024, brain MRI with and without contrast: Showed nonspecific tiny focus of hyperintensity involving the left anterior temporal lobe on post contrast imaging which is not clearly localized, and may reflect artifact. Otherwise no focus of abnormal enhancement. Mild scattered patchy areas of T2 prolongation within the subcortical and deep periventricular white matter, suggestive of chronic microvascular ischemia. No acute intracranial hemorrhage or infarction. Cwbt-da-[id number] bilateral paranasal sinus mucosal disease. Pt reports she had an [facility] and then a [facility] day hospital, in August as she was having new BLE L > R burning pain. She had started carbamazapine x's 1 month prior to this. While admitted, workup was notable for elevated LFTs. She was taken off the carbamazapine and atorvastatin, and her alk-phos and LFTs began to improve. Right upper quadrant ultrasound was unremarkable exception small right renal cyst. She was advised to reduce her Gabapentin, she is now taking it three times a day. Upon review of notes, it appears ropinirole was restarted upon discharge, as the burning discomfort was thought to be restless leg syndrome.. Since, the patient returned to [place] over the winter. She was able to establish care with a PCP in [place]. She states she is scheduled to undergo follow-up abdominal ultrasound. During this time, she was treated for a ? complicated UTI.. Since returning home, he is being followed by [facility]. She reports she started to have painful muscle cramp/spasm at onset of voiding, and at times cannot void. Thus, she is undergoing further evaluation. Recent labs at [place], show CBC and CMP within normal limits, normal B12, normal iron studies, ferritin 125, normal TSH She also recently saw [facility] vascular, who is ordering [facility] vascular studies for symptomatic varicose veins. She reports she continues to have BLE R > L burning pain. She reports her balance is worse and she is dragging her LLE, hears her left slipper shuffling when walking at home. She has a h/o Curtis TKR, and curtis lower patellar burning pain. Also a left forbes's cyst. She has intermittent whole underneath bottom pain/discomfort when sitting. The endorses bilateral posterior cervical neck tightness and tenderness. No acute changes to lower back pain. Denies BLE numbness. States she can the ground with walking. [facility] Surgical History H/O rotator cuff surgery History of knee replacement procedure of right knee History of knee replacement procedure of left knee Family History Father Diabetes Myocardial infarction Brother Diabetes Myocardial infarction Mother Myocardial infarction Brother Myocardial infarction Sister Diabetes Dementia Social History Alcohol intake: current Alcohol intake frequency: holidays/special occasions only Patient Tobacco Use Status: Former Tobacco user Physical Exam Vital Signs: Last Vital Signs Pulse 76 03/31/25 13:17 BP 122/78 03/31/25 13:17 Pulse Ox 96 03/31/25 13:17 Oxygen Delivery Method Room Air 03/31/25 13:17 BMI result Body Mass Index 28.0 Const General: cooperative and no acute distress Orientation/consciousness: patient oriented x3 HEENT Head: Yes normocephalic Resp Effort & Inspection: normal respiratory effort and able to speak in complete sentences Neuro Other: Nonpalpable low back tenderness Muscle strength BLE and RLE: 5/5 Muscle strength LLE in hip flexor, ankle extensor: 5- 5 Muscle strength testing elicits left upper thigh muscle spasm. LLE decreased foot taps Uses 2 hands to push herself up from chair, towards steps with mild left foot high step. General: patient oriented x3 and CN's II-XI intact bilaterally Cognition (Neuro): normal cognition Psych Appearance: grossly normal Mental Status: mental status grossly normal Speech and movement: Normal speech and movement present Affect: normal affect Attitude: cooperative Thought process: Normal thought process present Results Reviewed Results Reviewed: 03/23/2025 (at [facility]), Right upper quadrant ultrasound. ?HISTORY: abnormal LFT. COMPARISON: 03/18/2016. TECHNIQUE: Grayscale, color Doppler, and spectral Doppler ultrasound evaluation of the right upper quadrant of the abdomen. FINDINGS: LIVER: Normal echotexture. No focal lesion. Normal flow in the main portal vein. BILIARY: Normal caliber biliary tree for age. Mild nodularity and associated artifact along the gallbladder wall suggestive of adenomyomatosis. Negative sonographic Pereira sign. ?PANCREAS: Visualized portions are normal. ?RIGHT KIDNEY: Normal size and echotexture. No hydronephrosis. 16 mm upper pole cortical cyst. ?IMPRESSION: No acute findings. 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 03/10/2025, upper GI endoscopy: Findings: ?atypical, with almost a pseudomembrane, esophagitis with no bleeding was found 37-40 cm from the incisors.) Biopsies were taken. Exam was otherwise without abnormality. 03/10/24 [facility] Unknown WBC 5.7 RBC 3.82 L Hgb 12.6 Hct 37.4 MCV 97.9 MCH 33.0 MCHC 33.7 RDW 13.5 Plt Count 267 Sodium 140 Potassium 4.0 Chloride 105 Carbon Dioxide 26 Anion Gap 13 BUN 16 Creatinine 1.03 Estimated GFR 52 Random Glucose 114 Calcium 9.5 Total Bilirubin 0.3 AST 37 H ALT 36 H Alkaline Phosphatase 68 Total Protein 6.8 Albumin 4.2 03/08/24, RUE EMG/NCS: IMPRESSION: ?Abnormal study. -There is nerve conduction study evidence of a gjar-pb-dqcevbwl right median mononeuropathy at the wrist (consistent with a clinical diagnosis of carpal tunnel syndrome), including focal sensory fiber demyelination and sensory greater than motor axon loss. ?There is EMG evidence of acute and chronic denervation affecting the right abductor pollicis brevis muscle. -No nerve conduction study evidence of a right ulnar neuropathy at the wrist or elbow (cubital tunnel syndrome) or superficial radial neuropathy. -No nerve conduction study evidence of a large-fiber sensorimotor polyneuropathy affecting the right upper extremity. -No EMG evidence of a right brachial plexopathy or right C6-T1 radiculopathies. Assessment & Plan Assessment & Plan (1) Cramp and spasm: Comment: anti-RAY AB- normal Code(s): R25.2 - Cramp and spasm Category: Medical (2) Paresthesia: Code(s): R20.2 - Paresthesia of skin Category: Medical (3) Urinary retention: Code(s): R33.9 - Retention of urine, unspecified Category: Medical (4) Left leg weakness: Code(s): R29.898 - Other symptoms and signs involving the musculoskeletal system Category: Medical (5) Cervicalgia: Code(s): M54.2 - Cervicalgia Category: Medical (6) Cramp and spasm: Comment: anti-RAY AB- normal Code(s): R25.2 - Cramp and spasm Category: Medical (7) Urinary retention: Code(s): R33.9 - Retention of urine, unspecified Category: Medical (8) Left leg weakness: Code(s): R29.898 - Other symptoms and signs involving the musculoskeletal system Category: Medical (9) Cervicalgia: Code(s): M54.2 - Cervicalgia Category: Medical (10) Gait difficulty: Code(s): R26.9 - Unspecified abnormalities of gait and mobility Category: Medical Plan Reviewed brain MRI, mi white matter changes consistent with chronic micro vascular ischemic changes. Reviewed interval labs and hospital notes, LFTs have returned to baseline. Or bilateral lower extremity burning pain symptoms and worsening LLE weakness, in setting of urinary retention: Patient is advised to undergo- C-spine MRI without contrast L-spine MRI without contrast Your request open MRI, and premedication for claustrophobia Bilateral lower extremity EMG/NCS Patient advised to use a cane or walking sticks especially when on for upcoming cruise. Follow-up with urology, vascular, GI scheduled. For cramps/spasms- Patient has stopped carbamazepine ER 100 mg b.i.d.- not tolerated, possibly exacerbated LFTs. Patient states she has stopped baclofen. Continue Gabapentin 300mg po 3 times a day Previous trials: Trihexyphenidyl not tolerated. Phenytoin ineffective. Future considerations- Diazepam. ? For RLS: Continue Ropinirole as needed. Orders: Orders MR cervical spine wo con Today M54.2 - Cervicalgia, R20.2 - Paresthesia of skin, R25.2 - Cramp and spasm, R29.898 - Other symptoms and signs involving the musculoskeletal system, R33.9 - Retention of urine, unspecified MR lumbar spine wo con Today R20.2 - Paresthesia of skin, R25.2 - Cramp and spasm, R29.898 - Other symptoms and signs involving the musculoskeletal system, R33.9 - Retention of urine, unspecified NE nerve conduction velocity Today M54.2 - Cervicalgia, R25.2 - Cramp and spasm, R29.898 - Other symptoms and signs involving the musculoskeletal system, R33.9 - Retention of urine, unspecified NE electromyogram (EMG) Today G62.9 - Polyneuropathy, unspecified, M54.2 - Cervicalgia, R25.2 - Cramp and spasm, R29.898 - Other symptoms and signs involving the musculoskeletal system Medications: New alprazolam (2 x 0.25 mg) 0.5 mg orally 30 minutes prior to MRI (cervical and lumbar MRIs), may repeat x's 1; 1 day 8 tabs 0RF mchjxgftnmb-lykotkrrb-uktfpnkb 100-62.5-25 mcg (Trelegy Ellipta) 1 inh inhalation Q24H Changed From gabapentin 300 mg orally 5 x's per day; 90 days 540 caps 1RF To gabapentin 300 mg PO TID 90 days 270 caps 1RF Discontinued baclofen Discontinued Reason: Patient no longer taking 10 mg PO TID 30 days 90 tabs 3RF carbamazepine ER (Tegretol XR) Discontinued Reason: Patient no longer taking 100 mg PO BID 30 days 60 tabs 3RF phenytoin sodium extended Discontinued Reason: Doctor's Order 100 mg PO TID 90 caps 6RF Coding Level of Care Code Est Pt Level 4 (43860) Diagnoses Cramp and spasm R25.2 Paresthesia R20.2 Urinary retention R33.9 Left leg weakness R29.898 Cervicalgia M54.2 Gait difficulty R26.9
== END 2025-03-31 14:16 | disposition home or self-care (01) ==
LOC: HO.HSMS 12:43
PROVIDERS: PCP Internal Medicine; Visit Provider Nurse Practitioner Family
DX: R25.2 Cramp and spasm (principal); R20.2 Paresthesia of skin; R33.9 Retention of urine, unspecified; R29.898 Other symptoms and signs involving the musculoskeletal system; M54.2 Cervicalgia; R26.9 Unspecified abnormalities of gait and mobility
CPT/HCPCS: 99214

== ENCOUNTER → 2025-03-31 12:43 | Outpatient (BNVA) | payer MEDICARE, SELFPAY | PROVIDERS: PCP Internal Medicine; Visit Provider Nurse Practitioner Family | DX: R25.2 Cramp and spasm (principal); R20.2 Paresthesia of skin; R33.9 Retention of urine, unspecified; R29.898 Other symptoms and signs involving the musculoskeletal system; R26.9 Unspecified abnormalities of gait and mobility; M54.2 Cervicalgia | CPT/HCPCS: 99212 ==

== ENCOUNTER 2025-06-01 08:49 | Outpatient (REF) | payer MEDICARE, SELFPAY ==
--- NOTE | 2025-06-01 08:59 | EMG_ITS ---
Chief complaint: 6 months of numbness/burning on both lower extremities, noting that she is dragging left foot when she walks. On further history, she has had 20-30 year history of muscle cramps on her legs. She has had 3-4 EMGs and a muscle biopsy done in the past, but she is not aware of results. She used to follow with [facility]. None of those old records are available for my review. She also complains of neck pain, back pain, numbness in right arm. History of right Carpal Tunnel Syndrome surgery. History of bilateral knee replacements. On exam, noted thinning of bilateral FDI muscles. No other atrophy seen. She had a cramp on her hamstrings during the test, but I did not visualize any fasciculations. Reason for referral: Evaluate for neuropathy Referred by: Ciera Hardin [employer] Procedure done: Bilateral lower extremity and right upper extremity NCS/EMG, cervical, thoracic, lumbar paraspinals Precautions and/or limitations: None The limb temperature was monitored continuously and remained between 32-36 degrees C during the performance of the NCS. Ulnar motor NCS was performed with moderate elbow flexion between 70-90 degrees, with across-elbow distance of 10 cm. Nerve Conduction Studies Anti Sensory Summary Table ?Stim Site NR Onset (ms) Norm Onset (ms) Peak (ms) Norm Peak (ms) O-P Amp (?V) Norm O-P Amp Site1 Site2 Delta-0 (ms) Dist (cm) Erich (m/s) Norm Erich (m/s) Right Radial Anti Sensory (Thumb) Forearm ? 1.8 2.5 <3.1 5.7 Forearm Thumb 1.8 0.0 Left Sural Anti Sensory (Lat Mall) Calf NR <4.0 >5.0 Calf Lat Mall 14.0 Right Sural Anti Sensory (Lat Mall) Calf NR <4.0 >5.0 Calf Lat Mall 14.0 Right Ulnar Anti Sensory (5th Digit) Wrist ? 2.8 3.5 <3.7 2.2 >15.0 Wrist 5th Digit 2.8 14.0 50 Motor Summary Table ?Stim Site NR Onset (ms) Norm Onset (ms) O-P Amp (mV) Norm O-P Amp iAmp (mV) Amp (1st) (%) Site1 Site2 Delta-0 (ms) Dist (cm) Erich (m/s) Norm Erich (m/s) Left Peroneal Motor (Ext Dig Brev) Ankle ? 5.9 <4.0 0.8 >2.5 0.9 100.0 Ankle Ext Dig Brev 5.9 0.0 B Fib ? 15.0 0.9 0.9 112.5 B Fib Ankle 9.1 30.0 33 >40 Poplt ? 16.0 0.9 1.0 112.5 Poplt B Fib 1.0 4.0 40 >40 Right Peroneal Motor (Ext Dig Brev) Ankle NR <4.0 >2.5 Ankle Ext Dig Brev 0.0 B Fib NR B Fib Ankle 0.0 >40 Poplt NR Poplt B Fib 0.0 >40 Left Tibial Motor (Abd Gleason Brev) Ankle ? 6.3 <5 0.6 >2.5 1.0 100.0 Ankle Abd Gleason Brev 6.3 0.0 Knee ? 15.9 0.8 1.0 133.3 Knee Ankle 9.6 37.0 39 >40 Right Tibial Motor (Abd Gleason Brev) Ankle ? 9.2 <5 0.2 >2.5 0.4 100.0 Ankle Abd Gleason Brev 9.2 0.0 Knee NR Knee Ankle 0.0 >40 Right Ulnar Motor (Abd Dig Minimi) Wrist ? 2.8 <3.0 4.5 >5 5.3 100.0 B Elbow Wrist 3.6 20.0 56 >45 B Elbow ? 6.4 3.8 4.5 84.4 A Elbow B Elbow 2.0 10.0 50 >45 A Elbow ? 8.4 3.5 4.0 77.8 EMG ?Side Muscle Nerve Root Ins Act Fibs Psw Amp Dur Poly Recrt Int Pat Comment Right AbdHallucis MedPlantar S1-2 Incr 1+ 1+ Nml Nml 0 Nml Complete Right AntTibialis Dp Br Peron L4-5 Incr 1+ 1+ Incr Incr 0 Nml Complete Right PostTibialis Tibial L5, S1 Incr 1+ 1+ Nml Nml 0 Nml Complete Right MedGastroc Tibial S1-2 Nml 1+ 1+ Nml Nml 0 Nml Complete Right VastusMed Femoral L2-4 Nml Nml Nml Nml Nml 0 Nml Complete Left AbdHallucis MedPlantar S1-2 Incr 1+ 1+ Nml Nml 0 Nml Complete Left AntTibialis Dp Br Peron L4-5 Incr 1+ 1+ Incr Incr 0 Reduced Complete Left PostTibialis Tibial L5, S1 Nml Nml Nml Nml Nml 0 Nml Complete Left MedGastroc Tibial S1-2 Incr 1+ 1+ Incr Incr 0 Reduced Complete Left VastusMed Femoral L2-4 Incr 1+ 1+ Incr Incr 0 Nml Complete Right 1stDorInt Ulnar C8-T1 Nml Nml Nml Nml Nml 0 Nml Complete Right FlexCarRad Median C6-7 Nml Nml Nml Nml Nml 0 Nml Complete Right Biceps Musculocut C5-6 Nml Nml Nml Nml Nml 0 Nml Complete Right Triceps Radial C6-7-8 Nml Nml Nml Nml Nml 0 Nml Complete Right Deltoid Axillary C5-6 Nml Nml Nml Nml Nml 0 Nml Complete Paraspinal EMG ?Side Muscle Nerve Root Ins Act Fibs Psw Comment Right Lumbar Upper Rami Nml Nml Nml Right Lumbar Mid Rami Incr 1+ 1+ Right Lumbar Lower Rami Incr 1+ 1+ Left Lumbar Upper Rami Nml Nml Nml Left Lumbar Mid Rami Incr 1+ 1+ Left Lumbar Lower Rami Incr 1+ 1+ Right Cervical Upper Rami Nml Nml Nml Right Cervical Mid Rami Nml Nml Nml Right Cervical Lower Rami Nml Nml Nml Left Cervical Upper Rami Nml Nml Nml Left Cervical Mid Rami Incr 2+ 2+ CRDs Left Cervical Lower Rami Nml Nml Nml Left Thoracic Upper Rami Nml Nml Nml FINDINGS: Right peroneal nerve showed prolonged distal latency, very small amplitudes and slow distal conduction velocity. No conduction block seen across fibular neck. Right tibial nerve showed prolonged distal latency, very small amplitudes and slow conduction velocity. Right peroneal nerve showed absent response. Right tibial nerve showed very small/absent response. Bilateral sural nerves showed absent response. Right ulnar motor nerve normal distal latency, small amplitude and normal conduction velocity. No conduction block across elbow. Right ulnar sensory nerve showed normal peak latency but small amplitude. Right radial sensory nerve showed normal peak latency but small amplitude. All other nerves tested were within normal. Concentric needle EMG was performed in selected muscles of the bilateral lower extremities, right upper extremity, cervical, thoracic and lumbar paraspinals. Study revealed signs of electric abnormalities as shown in the table above. Right medial gastrocnemius showed increased insertional activity, PSWs and fibrillations. Right tibialis anterior showed increased insertional activity, PSWs and fibrillations, increased duration and amplitude. Right posterior tibialis showed increased insertional activity, PSWs and fibrillations. Right AH showed increased insertional activity, PSWs and fibrillations. Left vastus medius showed increased insertional activity, PSWs and fibrillations, increased duration and amplitude. Left tibialis anterior showed increased insertional activity, PSWs and fibrillations, increased duration and amplitude, reduced recruitment. Left medial gastrocnemius showed increased insertional activit, PSWs and fibrillations, increased duration and amplitude, reduced recruitment. Left AH showed increased insertional activity, PSWs and fibrillations. Right FDI showed increased insertional activity, PSWs and fibrillations, increased amplitude, reduced recruitment. Bilateral mid and lower lumbar paraspinals showed increased insertional activity, PSWs and fibrillations. Left mid cervical paraspinals showed increased insertional activity, 2+ PSWs and fibrillations, CRD's. Left thoracic upper paraspinals did not show denervation. IMPRESSION: This is an abnormal study. NCS show evidence of axonal loss in almost all motor nerves testes and even the sensory nerves. Distal latencies and conduction velocities only minimally abnormal, without evidence of conduction block. Needle EMG shows widespread denervation and reinnervation, found in cervical and lumbar regions. CLINICAL COMMENT: Based on today's study, I can not rule out probable ALS based on signs seen on 2 regions (cervical and lumbar). However, abnormal sensory findings are unusual to see in ALS. Further workup may need to be done to rule out other diseases that may mimic ALS, ex. cervical or lumbar stenosis, myopathy with inflammatory features (inclusion body myositis). I did not test bulbar or tongue muscles. If ALS is highly suspected and other differentials have been ruled out, we can return the patient to test bulbar muscles. Or referral to a neuromuscular specialist may be appropriate. Thank you for your kind referral. Monae Leyva MD, FROY Board Certified, [place] Board [employer] and Rehabilitation (ABPMR) Board Certified, [place] Board [employer] Electrodiagnostic Medicine (ABEM) CODIN [id number] x 3 [id number] MTDD
--- OUTSIDE RECORDS SUMMARY | 2025-06-01 09:13 | XMS_ITS | Clinical Summary ---
Author Organization [address] Address [address] [place] [phone] Phone Care Team Providers Care Igniter Assembler Name Role Phone John Gallego MD Primary Care Provider Unavailab le Allergies No known active allergies Medications omeprazole OTC (PriLOSEC OTC) 20 mg EC tabletIndication s:Gastroesophage al reflux disease, unspecified whether esophagitis present Take 1 tablet (20 mg total) by mouth 1 (one) time each day. Do not crush, chew, or split. 90 tablet 3 5 02/26/20 26 Active ALPRAZolam (XANAX) 0.25 mg tablet TAKE 1 TABLET BY MOUTH 30 MINUTES PRIOR TO MRI, MAY REPEAT 1 TIME Active amLODIPine (NORVASC) 5 mg tablet Take 1 tablet (5 mg total) by mouth 1 (one) time each day. 4 Active gabapentin (NEURONTIN) 300 mg capsule TAKE 1 CAPSULE BY MOUTH 5 TIMES PER DAY 5 Active ipratropium (ATROVENT) 42 mcg (0.06 %) nasal spray PLEASE SEE ATTACHED FOR DETAILED DIRECTIONS Active metroNIDAZOLE (FLAGYL) 500 mg tablet Take 1 tablet (500 mg total) by mouth every 12 (twelve) hours. Active mirabegron (MYRBETRIQ) 25 mg 24 hr tablet Take 1 tablet (25 mg total) by mouth 1 (one) time each day. 5 Active nitrofurantoin, macrocrystal-mon ohydrate, (MACROBID) 100 mg capsule Take 1 capsule (100 mg total) by mouth every 12 (twelve) hours. Active phenazopyridine (PYRIDIUM) 200 mg tablet TAKE 1 TABLET BY MOUTH 3 TIMES A DAY AFTER MEALS FOR 7 DAYS Active rOPINIRole (REQUIP) 0.5 mg tablet TAKE 1 TABLET BY MOUTH EVERY DAY AT BEDTIME 1-3 HOURS BEFORE BEDTIME Active sulfamethoxazole -trimethoprim (BACTRIM DS,SEPTRA DS) 800-160 mg per tablet Take 1 tablet by mouth every 12 (twelve) hours. Active tacrolimus (PROTOPIC) 0.1 % ointment APPLY TO RASH FACE AND NECK AND GROIN ONCE TO TWICE DAILY DIRECTED Active umeclidinium-ousmane anteroL (ANORO ELLIPTA) 62.5-25 mcg/actuation inhaler INHALE 1 PUFFS EVERY DAY FOR 30 DAYS Active fluticasone-umec lidinium-vilante rol (TRELEGY ELLIPTA) 100-62.5-25 mcg inhaler INHALE 1 PUFF EVERY DAY FOR 30 DAYS Active celecoxib (CeleBREX) 200 mg capsule Take 1 capsule (200 mg total) by mouth 1 (one) time each day in the morning. 5 Active carBAMazepine XR (TEGretol XR) 100 mg 12 hr tablet Take 1 tablet (100 mg total) by mouth 2 (two) times a day. Active ciprofloxacin (CIPRO) 500 mg tablet Take 1 tablet (500 mg total) by mouth every 12 (twelve) hours. Active Active Problems Problem Noted Date Diagnosed Date Chronic heartburn 05/11/2025 HTN (hypertension) 05/11/2025 Restless leg syndrome 05/11/2025 Chest pain 02/23/2025 Varicose veins of left lower leg 02/23/2025 Right wrist pain 05/28/2024 Ganglion cyst 04/15/2024 Disorder of skin or subcutaneous tissue 04/15/20 24 Epidermoid cyst of skin 06/12/2023 Finding of above normal blood pressure 3 Hypercholesterolemia 06/12/2023 Benign neoplasm of skin 04/03/2023 Skin changes due to chronic exposure to nonionizing radiation 06/13/2022 Tinea pedis 06/13/2022 Atopic dermatitis 06/07/2021 Cutaneous abscess of face 08/17/2020 Melanocytic nevi of trunk 08/17/2020 Other nail disorders 08/17/2020 Arthritis 08/26/2019 Asthma 08/26/2019 Chronic obstructive pulmonar y disease ([facility] V24, [facility] V28) 08/26/2019 Erythema intertrigo 08/26/2019 Other melanin hyperpigmentation 08/26/2019 Other seborrheic keratosis 08/26/2019 Other specified papulosquamous disorders 019 Gastroesophageal reflux disease 08/05/2019 Encounters Date Type Department Care Team Description 03/23/2025 10:12 AM EDT - 03/23/2025 11:59 PM EDT Hospital Encounter [facility] Ultrasound [address] [place] [id number] Abnormal LFTs; Gastroesophageal reflux disease, unspecified whether esophagitis present; Weight gain Discharge Disposition: Home or Self Care 03/08/2025 Telephone Gastroenterology - [address] [place] [phone] Ghazala Parker MA Results 03/04/2025 Telephone Gastroenterology - [address] [facility] [address] [facility] [address] [place] [phone] Lizzette Montiel MA from Last 3 Months Social History Tobacco [...] Office Visit Gastroenterology - [address] [facility] [address] [place] [phone] Elmira Weiss PA [address] [place] [id number] Health Maintenance Due Date Last Done Comments DTaP,Tdap,and Td Vaccines (1 - Tdap) 1969 Zoster Vaccines (2 of 2) 12/19/2020 10/24/2020 COVID-19 Vaccine (4 - season) 2024 09/15/2023, 08/21/2022, 10/19/2021 Cholesterol Screening (Lipid Panel) 10/01/2024 Falls Risk Assessment 10/01/2024 Hepatitis C Screening 10/01/2024 Medicare Annual Wellness Visit 10/01/2024 Osteoporosis Screening (Bone Density Screening) 10/01/2024 Social Influencers of Health Screening 10/01/2024 Depression Screening 11/10/2024 Influenza Vaccine (#1) 2025 , 07/17/2023, 08/12/2022, Additional history exists Hypertension/CHF/CAD Annual BMP Blood Test 02/25/2026 02/25/2025, 05/22/2023 RSV Immunization Adult Patients Completed 09/15/2023 Pneumococcal Vaccine: 50+ Years Completed 07/27/2024, 10/13/2019 Colorectal Cancer Screening: Colonoscopy Discontinued 03/10/2025 HIB Vaccines Aged Out No longer eligi [...] gain COLONOSCOPY Routine 03/10/2025 10:13 AM EDT COMPREHENSIVE METABOLIC PANEL Routine 02/25/2025 11:04 AM EDT Abnormal LFTs Gastroesophageal reflux disease, unspecified whether esophagitis present Weight gain from Last 3 Months or Most Recently Relevant to Health Maintenance Results * US Abdomen Limited (03/23/2025 10:36 [...] Signed Date: 03/23/2025 12:30 ET Workstation ID: [id number] Transcribed By: Self Edit Transcribed Date: 03/23/2025 11:30 ET Narrative 03/23/2025 12:30 PM EDT PROCEDURE: Right upper quadrant ultrasound. HISTORY: abnormal LFT. COMPARISON: 03/18/2016. TECHNIQUE: Grayscale, color Doppler, and spectral Doppler ultrasound evaluation of the right upper quadrant of the abdomen. FINDINGS: LIVER: Normal echotexture. No focal lesion. Normal flow in the main portal vein. BILIARY: Normal caliber biliary tree for age. Mild nodularity and associated artifact along the gallbladder wall suggestive of adenomyomatosis. Negative sonographic Pereira sign. PANCREAS: Visualized portions are normal. RIGHT KIDNEY: Normal size and echotexture. No hydronephrosis. 16 mm upper pole cortical cyst. Procedure Note [...] Date: 03/23/2025 11:30 ET Assigned Physician: Reza Sgeundo Reviewed and Electronically Signed By: Reza Segundo Signed Date: 03/23/2025 12:30 ET Workstation ID: [id number] Transcribed By: Self Edit Transcribed Date: 03/23/2025 11:30 ET us Therese Elliott NP IMG US PROCEDURES Final Resul t * COLONOSCOPY (03/10/2025 10:13 AM EDT) Anatomical Region Laterality Modality Endoscopy Historical Provider GI~PROCEDURE ORDERABLES F inal Result * Comprehensive metabolic panel (02/25/2025 11:04 AM EDT) Sodium 138 133 - 145 mmol/L LAB CHEMISTRY METHOD 02/25/2025 4:50 PM EDT [facility] Potassium 4.4 3.5 - 5.5 mmol/L LAB CHEMISTRY METHOD 02/25/2025 4:50 PM [facility] Chloride 107 96 - 110 mmol/L LAB CHEMISTRY METHOD 02/25/2025 4:50 PM [facility] CO2 28 21 - 32 mmol/L LAB CHEMISTRY METHOD 02/25/2025 4:50 PM [facility] Anion Gap 3 3 - 11 LAB CHEMISTRY METHOD 02/25/2025 4:50 PM [facility] Glucose 92 70 - 100 mg/dL LAB CHEMISTRY METHOD 02/25/2025 4:50 PM [facility] BUN 18 5 - 25 mg/dL LAB CHEMISTRY METHOD 02/25/2025 4:50 PM [facility] Creatinine 0.90 0.50 - 1.10 mg/dL LAB CHEMISTRY METHOD 02/25/2025 4:50 PM [facility] eGFR 67 >=60 mL/min/1. 73m2 LAB CHEMISTRY METHOD 02/25/2025 4:50 PM [facility] Comment:Calculation based on the Chronic Kidney Disease Epidemiology Collaboration (CKD-EPI) equation refit without adjustment for race. BUN/Creatinine Ratio 20.0 LAB CHEMISTRY METHOD 02/25/2025 4:50 PM [facility] Calcium 9.0 8.5 - 10.5 mg/dL LAB CHEMISTRY METHOD 02/25/2025 4:50 PM [facility] AST (SGOT) 36 10 - 42 unit/L LAB CHEMISTRY METHOD 02/25/2025 4:50 PM [facility] ALT (SGPT) 40 10 - 60 unit/L LAB CHEMISTRY METHOD 02/25/2025 4:50 PM [facility] Alkaline Phosphatase 70 42 - 121 unit/L LAB CHEMISTRY METHOD 02/25/2025 4:50 PM [facility] Total Protein 6.7 6.0 - 8.0 g/dL LAB CHEMISTRY METHOD 02/25/2025 4:50 PM [facility] Albumin 3.8 3.2 - 5.0 g/dL LAB CHEMISTRY METHOD 02/25/2025 4:50 PM [facility] Total Bilirubin 0.4 0.0 - 1.4 mg/dL LAB CHEMISTRY METHOD 02/25/2025 4:50 PM [facility] Blood Venous blood specimen / Unknown Venipuncture / Unknown 02/25/2025 11:04 AM EDT 02/25/2025 1:47 PM EDT us Therese Elliott TITLE CLERK [employer] LAB BLOOD ORDERABLES Final Re sult [facility] [address] [place] [address], from Last 3 Months or Most Recently Relevant to Health Maintenance Insurance [employer] Care Teams Igniter Assembler Relationship Specialty Start Date End Date John Gallego MD PCP - General Internal Medicine 09/29/24
--- OUTSIDE RECORDS SUMMARY | 2025-06-01 09:13 | XMS_ITS | Data Portability ---
Author Organization [facility] [employer], [facility] Address [address] [place] [address] Care Team Providers Care Brine Purifier Name Role Phone CEM SUAZO Primary Care Provider CEM SUAZO Referring Provider [phone] Assessment No assessment recorded. Plan of Treatment Reminders Order Date Submit Date Provider Last Modified By Organization Details Last Modified Time Details Appointments None recorded. Lab iron + TIBC + ferritin, serum 2024 025 [facility], [address] [place], [address], 5 17:53:21 CK (creatine kinase), total, serum 2024 025 [facility], [address] [place], [address], 5 17:53:17 erythrocy te sedimenta tion rate by whit n method 2024 025 [facility], [address] [place], [address], 5 12:27:14 C-reactiv e protein, quantitat dana, serum or plasma 2024 025 [facility], [address] [place], [address], 5 18:17:05 homocyste ine, serum or plasma 2024 025 [facility], [address], [place], [address], 5 04:48:17 mma (methylma lonic acid), serum 2024 025 [facility], [address], [place], [address], 5 04:48:18 vitamin B12 + folate, serum or blood 2024 025 [facility], [address], [place], [address], 5 18:00:42 vitamin B6 (pyridoxi ne), plasma 2024 025 [facility], [address], [place], [address], 5 17:29:23 CBC 2024 025 [facility], [address], [place], [address], 5 18:18:46 CMP, serum or plasma 2024 025 [facility], [address], [place], [address], 5 17:53:18 TSH + free T4, serum 2024 025 [facility], [address], [place], [address], 5 18:00:43 urinalysi s, dipstick 2023 024 [email or web address] In-Office Order, Internal Use Only DO Not Attach Compendium DO Not Attach Compendium, Do Not Delete/merge, [id number] 4 15:13:11 urinalysi s, dipstick 2023 024 [email or web address] In-Office Order, Internal Use Only DO Not Attach Compendium DO Not Attach Compendium, Do Not Delete/merge, [id number] 4 09:26:27 culture, urine 2023 024 [facility], [address], [place], [address], 4 08:55:40 urinalysi s, dipstick 2023 024 [email or web address] In-Office Order, Internal Use Only DO Not Attach Compendium DO Not Attach Compendium, Do Not Delete/merge, [id number] 4 10:11:59 culture, urine 2023 024 [facility], [address], [place], [address], 4 19:46:11 Referral urogyneco logist referral - Recurrent dysuria 2024 025 [facility], [address], [place], [address], 5 16:09:54 urologist referral - Continued bladder pain despite [address] cs[address] CT showed questiona ble inflammat ion in colon, completed abx with no change. 2023 024 [email or web address] Maycol Bernal DO, [address], [place], [address], 4 16:18:58 orthopedi c surgeon referral 2023 024 mely Solorzano MD ([facility]), [address], [place], [address], 4 11:15:14 Procedures None recorded. Surgeries None recorded. Imaging CT, abdomen + pelvis, w/o contrast 2023 024 [facility], [facility], All Locations, [place], [address], 4 11:59:30 XR, hand, 3 or more view 2023 024 [facility], [facility], All Locations, [place], [address], 4 17:15:38 XR, wrist 2023 024 [email or web address] [facility], [facility], All Locations, [place], [address], 4 08:20:49 Medication Orders nitrofura ntoin monohydra te/macroc rystals 100 mg capsule 2023 025 [id number], [address], [place], [address], 5 14:02:07 Patient TargetsNo targets recorded. Patient Instructions Encounter Date Encounter Id Patient Instructions Last Modified By Organization Details Last Modified Time 09/30/2024 [id number] Patient understa nds instructions and will seek medical attention if symptoms worsen as directed. Not available 09/30/2024 10:19:50 10/17/2024 [id number] Patient understa nds instructions and will seek medical attention if symptoms worsen as directed. [email or web address] Not available 10/17/2024 09:35:48 11/01/2024 [id number] We discussed you r recurrent urinary symptoms and abdominal pain: - Your urinalysis today is normal, showing no evidence of infection. - Previous imaging suggested possible diverticulitis, but nothing definitive was found. - Given the persistence of your symptoms, I recommend that you see a urologist for further evaluation. We discussed the need for a primary care physician: - You need to be established with a primary care physician who can coordinate your care and make necessary referrals. - Harshad is working on getting you an appointment with a primary care physician. [email or web address] Not available 11/01/2024 15:04:21 11/11/2024 [id number] gastroesophageal reflux disease (GERD): care instructions [email or web address] Not available 11/11/2024 14:54:02 Reason for Referral Orthopedic Surgeon Referral for Pain of right wrist Referring Physician: Esau Martin, [facility], Encounter Date: 12/31/2023 Urologist Referral for Cysti tis Continued bladder pain despite [address] showed questionable inflammation in colon, completed abx with no change. Referring Physician: Mary Hartley, [facility], Encounter Date: 11/01/2024 Urogynecologist Referral for Recurrent urinary tract infection Recurrent dysuria Referring Physician: Elizabeth Ayala, Internal [facility], Encounter Date: 11/11/2024 Results Created Date Observation Date Name Description Value Unit Range Abnormal Flag Note LastModifiedBy Organization Detail LastModifiedTime 09/30/20 24 10/02/2024 CULTU RE, URINE , ROUTI NE culture, urine, routine SEE NOTE abnormal CULTU RE, URINE , ROUTI NE Micro Numbe r: [id number] Test Statu s: Final Speci men Sourc e: Urine Speci men Quali ty: Adequ ate Resul t: Great er than 100,0 00 CFU/m L of Klebs iella pneum oniae K.pne umoni ae ----- ----- ----- - INT SHERRIE AMOX/ CLAVU LANAT E S <=2 AMP/S ULBAC LOPEZ S 4 CEFAZ STEPHANIE NR <=4 2 CEFEP LIANET S <=0.1 2 CEFTA ZIDIM E S <=1 CEFTR IAXON E S <=0.2 5 CIPRO FLOXA SHANEL S <=0.0 6 GENTA MICIN S <=1 IMIPE NEM S <=0.2 5 LEVOF LOXAC IN S <=0.1 2 MEROP ENEM S <=0.2 5 NITRO FURAN TOIN I 64 PIP/T AZOBA CTAM S <=4 TRIME THOPR IM/WHELAN LFA S <=20 S = Susce ptibl e I = Inter media te R = Resis tant NS = Not susce ptibl e SDD = Susce ptibl e Dose Depen dent * = Not Teste d NR = Not Repor blanca NN = See Thera py Comme nts THERA PY COMME NTS Note 1: For infec tions other than uncom plica blanca UTI cause d by E. coli, K. pneum oniae or P. mirab ilis: Cefaz stephanie is resis tant if SHERRIE > or = 8 mcg/m L. (Dist ingui shing susce ptibl e versu s inter media te for isola josie with SHERRIE < or = 4 mcg/m L requi res addit ional testi ng.) Note 2: For uncom plica blanca UTI cause d by E. coli, K. pneum oniae or P. mirab ilis: Cefaz stephanie is susce ptibl e if SHERRIE <32 mcg/m L and predi cts susce ptibl e to the oral agent s cefac rissa, cefdi ezio, cefpo doxim e, cefpr ozil, cefur oxime , cepha lexin and lorac arbef . Not Available [facility] [address] [place] [address], [place], [address], 10/02/2024 19:46:11 09/30/20 24 09/30/2024 urina lysis , dipst ick leukocytes small negati ve Not Available In-Office Order Internal Use Only DO Not Attach Compendium DO Not Attach Compendium, Do Not Delete/merge, [id number] 09/30/2024 09:50:28 09/30/20 24 09/30/2024 urina lysis , dipst ick nitrite negati ve negati ve Not Available In-Office Order Internal Use Only DO Not Attach Compendium DO Not Attach Compendium, Do Not Delete/merge, [id number] 09/30/2024 09:50:28 09/30/20 24 09/30/2024 urina lysis , dipst ick urobilinogen 0.2 E.U./ dL 0.2 Not Available In-Office Order Internal Use Only DO Not Attach Compendium DO Not Attach Compendium, Do Not Delete/merge, [id number] 09/30/2024 09:50:28 09/30/20 24 09/30/2024 urina lysis , dipst ick protein negati ve mg/dL negati ve Not Available In-Office Order Internal Use Only DO Not Attach Compendium DO Not Attach Compendium, Do Not Delete/merge, [id number] 09/30/2024 09:50:28 09/30/20 24 09/30/2024 urina lysis , dipst ick pH 7.0 5.0-7. 0 Not Available In-Office Order Internal Use Only DO Not Attach Compendium DO Not Attach Compendium, Do Not Delete/merge, [facility] 09/30/2024 09:50:28 09/30/20 24 09/30/2024 urina lysis , dipst ick blood negati ve negati ve Not Available In-Office Order Internal Use Only DO Not Attach Compendium DO Not Attach Compendium, Do Not Delete/merge, [facility] 09/30/2024 09:50:28 09/30/20 24 09/30/2024 urina lysis , dipst ick specific gravity 1.020 1.020- 1.035 Not Available In-Office Order Internal Use Only DO Not Attach Compendium DO Not Attach Compendium, Do Not Delete/merge, [id number] 09/30/2024 09:50:28 09/30/20 24 09/30/2024 urina lysis , dipst ick ketone negati ve mg/dL negati ve Not Available In-Office Order Internal Use Only DO Not Attach Compendium DO Not Attach Compendium, Do Not Delete/merge, 09/30/2024 09:50:28 09/30/20 24 09/30/2024 urina lysis , dipst ick bilirubin negati ve negati ve Not Available In-Office Order Internal Use Only DO Not Attach Compendium DO Not Attach Compendium, Do Not Delete/merge, [id number] 09/30/2024 09:50:28 09/30/20 24 09/30/2024 urina lysis , dipst ick glucose negati ve mg/dL negati ve Not Available In-Office Order Internal Use Only DO Not Attach Compendium DO Not Attach Compendium, Do Not Delete/merge, [id number] 09/30/2024 09:50:28 10/17/20 24 10/20/2024 CULTU RE, URINE , ROUTI NE culture, urine, routine SEE NOTE CULTU RE, URINE , ROUTI NE Micro Numbe r: [id number] Test Statu s: Final Speci men Sourc e: Urine Speci men Quali ty: Adequ ate Resul t: No Growt h Not Available [facility] [address] [place] [address] [address], [place], [address], 10/20/2024 08:55:40 10/17/20 24 10/17/2024 urina lysis , dipst ick leukocytes TRACE negati ve Not Available In-Office Order Internal Use Only DO Not Attach Compendium DO Not Attach Compendium, Do Not Delete/merge, [id number] 10/17/2024 08:55:57 10/17/2010/17/2024 urina lysis , dipst ick nitrite NEGATI VE negati ve Not Available In-Office Order Internal Use Only DO Not Attach Compendium DO Not Attach Compendium, Do Not Delete/merge, [id number] 10/17/2024 08:55:57 10/17/20 24 10/17/2024 urina lysis , dipst ick urobilinogen 0.2 E.U./ dL 0.2 Not Available In-Office Order Internal Use Only DO Not Attach Compendium DO Not Attach Compendium, Do Not Delete/merge, [id number] 10/17/2024 08:55:57 10/17/20 24 10/17/2024 urina lysis , dipst ick protein NEGATI VE mg/dL negati ve Not Available In-Office Order Internal Use Only DO Not Attach Compendium DO Not Attach Compendium, Do Not Delete/merge, [id number] 10/17/2024 08:55:57 10/17/20 24 10/17/2024 urina lysis , dipst ick pH 5.5 5.0-7. 0 Not Available In-Office Order Internal Use Only DO Not Attach Compendium DO Not Attach Compendium, Do Not Delete/merge, [id number] 10/17/2024 08:55:57 10/17/20 24 10/17/2024 urina lysis , dipst ick blood NEGATI VE negati ve Not Available In-Office Order Internal Use Only DO Not Attach Compendium DO Not Attach Compendium, Do Not Delete/merge, [facility] 10/17/2024 08:55:57 10/17/20 24 10/17/2024 urina lysis , dipst ick specific gravity 1.020 1.020- 1.035 Not Available In-Office Order Internal Use Only DO Not Attach Compendium DO Not Attach Compendium, Do Not Delete/merge, [facility] 10/17/2024 08:55:57 10/17/20 24 10/17/2024 urina lysis , dipst ick ketone NEGATI VE mg/dL negati ve Not Available In-Office Order Internal Use Only DO Not Attach Compendium DO Not Attach Compendium, Do Not Delete/merge, [facility] 10/17/2024 08:55:57 10/17/20 24 10/17/2024 urina lysis , dipst ick bilirubin NEGATI VE negati ve Not Available In-Office Order Internal Use Only DO Not Attach Compendium DO Not Attach Compendium, Do Not Delete/merge, [facility] 10/17/2024 08:55:57 10/17/20 24 10/17/2024 urina lysis , dipst ick glucose NEGATI VE mg/dL negati ve Not Available In-Office Order Internal Use Only DO Not Attach Compendium DO Not Attach Compendium, Do Not Delete/merge, [facility] 10/17/2024 08:55:57 11/01/20 24 11/01/2024 urina lysis , dipst ick leukocytes negati ve negati ve Not Available In-Office Order Internal Use Only DO Not Attach Compendium DO Not Attach Compendium, Do Not Delete/merge, [facility] 11/01/2024 14:25:19 11/01/20 24 11/01/2024 urina lysis , dipst ick nitrite negati ve negati ve Not Available In-Office Order Internal Use Only DO Not Attach Compendium DO Not Attach Compendium, Do Not Delete/merge, [id number] 11/01/2024 14:25:19 11/01/20 24 11/01/2024 urina lysis , dipst ick urobilinogen 0.2 E.U./ dL 0.2 Not Available In-Office Order Internal Use Only DO Not Attach Compendium DO Not Attach Compendium, Do Not Delete/merge, [id number] 11/01/2024 14:25:19 11/01/20 24 11/01/2024 urina lysis , dipst ick protein negati ve mg/dL negati ve Not Available In-Office Order Internal Use Only DO Not Attach Compendium DO Not Attach Compendium, Do Not Delete/merge, [id number] 11/01/2024 14:25:11/01/20 24 11/01/2024 urina lysis , dipst ick pH 7.5 5.0-7. 0 Not Available In-Office Order Internal Use Only DO Not Attach Compendium DO Not Attach Compendium, Do Not Delete/merge, [facility] 11/01/2024 14:25:11/01/20 24 11/01/2024 urina lysis , dipst ick blood negati ve negati ve Not Available In-Office Order Internal Use Only DO Not Attach Compendium DO Not Attach Compendium, Do Not Delete/merge, [id number] 11/01/2024 14:25:11/01/20 24 11/01/2024 urina lysis , dipst ick specific gravity 1.020 1.020- 1.035 Not Available In-Office Order Internal Use Only DO Not Attach Compendium DO Not Attach Compendium, Do Not Delete/merge, [id number] 11/01/2024 14:25:11/01/20 24 11/01/2024 urina lysis , dipst ick ketone negati ve mg/dL negati ve Not Available In-Office Order Internal Use Only DO Not Attach Compendium DO Not Attach Compendium, Do Not Delete/merge, [id number] 11/01/2024 14:25:19 11/01/20 24 11/01/2024 urina lysis , dipst ick bilirubin negati ve negati ve Not Available In-Office Order Internal Use Only DO Not Attach Compendium DO Not Attach Compendium, Do Not Delete/merge, [id number] 11/01/2024 14:25:19 11/01/20 24 11/01/2024 urina lysis , dipst ick glucose negati ve mg/dL negati ve Not Available In-Office Order Internal Use Only DO Not Attach Compendium DO Not Attach Compendium, Do Not Delete/merge, [id number] 11/01/2024 14:25:19 11/24/19 25 11/24/2024 CK creatine kinase 389 U/L 30 - 223 high Not Available [facility] [address] [facility] [address] [place], [address], 11/24/2024 17:53:17 11/24/19 25 11/24/2024 CMP, COMPR EHENS DANA METAB OLIC PANEL glucose 108 mg/dL 70 - 100 high Not Available [facility] [address] [facility] [facility] [address] [place], [address], 11/24/2024 17:53:18 11/24/19 25 11/24/2024 CMP, COMPR EHENS DANA METAB OLIC PANEL BUN 19 mg/dL 7 - 25 Not Available [facility] [address] [facility] [facility] [address] [place], [address], 11/24/2024 17:53:18 11/24/19 25 11/24/2024 CMP, COMPR EHENS DANA METAB OLIC PANEL creatinine 0.9 mg/dL 0.6 - 1.3 Not Available [facility] [address] [facility] [facility] [address] [place], [address], 11/24/2024 17:53:18 11/24/19 25 11/24/2024 CMP, COMPR EHENS DANA METAB OLIC PANEL BUN/creatini ne ratio 21 calc 10 - 25 Not Available [facility] [address], [place], [address], 11/24/2024 17:53:18 11/24/19 25 11/24/2024 CMP, COMPR EHENS DANA METAB OLIC PANEL GFR 65 mL/mi n/1.7 3m^2 >60 GFR < 60 mL/mi n for 3 or more month s may be indic ative of Kidangie Esquivel se. The GFR is based on the CKD-E PI 2020 equat ion. To calcu late the new GFR from a previ ous Creat inine resul t go to: https ://rodríguez w.kid patrick.o rg/pr ofess ional s/kdo qi/gf r&5Fc alcul ator. Not Available [facility] [address], [place], [address], 11/24/2024 17:53:18 11/24/19 25 11/24/2024 CMP, COMPR EHENS DANA METAB OLIC PANEL sodium 144 mmol/ L 135 - 145 Not Available [facility] [address], [place], [address], 11/24/2024 17:53:18 11/24/19 25 11/24/2024 CMP, COMPR EHENS DANA METAB OLIC PANEL potassium 5.1 mmol/ L 3.5 - 5.5 Not Available [facility] [address], [place], [address], 11/24/2024 17:53:18 11/24/19 25 11/24/2024 CMP, COMPR EHENS DANA METAB OLIC PANEL chloride 107 mmol/ L 100 - 115 Not Available [facility] [address], [place], [address], 11/24/2024 17:53:18 11/24/19 25 11/24/2024 CMP, COMPR EHENS DANA METAB OLIC PANEL CO2 29 mmol/ L 21 - 33 Not Available [facility] [address], [place], [address], 11/24/2024 17:53:18 11/24/19 25 11/24/2024 CMP, COMPR EHENS DANA METAB OLIC PANEL calcium 9.6 mg/dL 8.8 - 10.6 Not Available [facility] [address] [facility] [facility] [address], [place], [address], 11/24/2024 17:53:18 11/24/19 25 11/24/2024 CMP, COMPR EHENS DANA METAB OLIC PANEL total protein 6.7 g/dL 6.2 - 8.6 Not Available [facility] [address] [facility] [facility] [address], [place], [address], 11/24/2024 17:53:18 11/24/19 25 11/24/2024 CMP, COMPR EHENS DANA METAB OLIC PANEL globulin 2.6 g/dL 1.3 - 4.0 Not Available [facility] [address] [facility] [facility] [address], [place], [address], 11/24/2024 17:53:18 11/24/19 25 11/24/2024 CMP, COMPR EHENS DANA METAB OLIC PANEL albumin 4.1 g/dL 3.5 - 5.7 Not Available [facility] [address] [facility] [facility] [address], [place], [address], 11/24/2024 17:53:18 11/24/19 25 11/24/2024 CMP, COMPR EHENS DANA METAB OLIC PANEL A/G ratio 1.6 calc 1.0 - 2.8 Not Available [facility] [address] [facility] [facility] [address], [place], [address], 11/24/2024 17:53:18 11/24/19 25 11/24/2024 CMP, COMPR EHENS DANA METAB OLIC PANEL AST (SGOT) 33 U/L 13 - 39 Not Available [facility] [address], [place], [address], 11/24/2024 17:53:18 11/24/19 25 11/24/2024 CMP, COMPR EHENS DANA METAB OLIC PANEL ALT (SGPT) 28 U/L 7 - 52 Not Available [facility] [address], [place], [address], 11/24/2024 17:53:18 11/24/19 25 11/24/2024 CMP, COMPR EHENS DANA METAB OLIC PANEL alkaline phosphatase 67 U/L 20 - 128 Not Available [facility] [address], [place], [address], 11/24/2024 17:53:18 11/24/19 25 11/24/2024 CMP, COMPR EHENS DANA METAB OLIC PANEL total bilirubin 0.3 mg/dL 0.3 - 1.0 Not Available [facility] [address] [facility] [facility] [address], [place], [address], 11/24/2024 17:53:18 11/24/19 25 11/24/2024 IRON, TIBC & MATTHEW TIN PANEL serum iron 92 ug/dL 45 - 210 Not Available [facility] [address] [facility] [address] [place], [address], 11/24/2024 17:53:21 11/24/19 25 11/24/2024 IRON, TIBC & MATTHEW TIN PANEL iron binding capacity 365 ug/dL 250 - 450 Not Available [facility] [address], [place], [address], 11/24/2024 17:53:21 11/24/19 25 11/24/2024 IRON, TIBC & MATTHEW TIN PANEL unsaturated iron binding capacity 273 ug/dL Not Available [facility] [address], [place], [address], 11/24/2024 17:53:21 11/24/19 25 11/24/2024 IRON, TIBC & MATTHEW TIN PANEL % iron saturation 25 % 13 - 45 Not Available [facility] [address] [facility] [address], [place], [address], 11/24/2024 17:53:21 11/24/19 25 11/24/2024 IRON, TIBC & MATTHEW TIN PANEL ferritin 287 NG/mL 10 - 158 high Not Available [facility] [address] [facility] [address], [place], [address], 11/24/2024 17:53:21 11/24/19 25 11/24/2024 VITAM IN B12 & FOLAT E vitamin B-12 757 pg/mL 232 - 1245 Not Available [facility] [address] [facility] [address], [place], [address], 11/24/2024 18:00:42 11/24/1911/24/2024 VITAM IN B12 & FOLAT E folate 9.09 NG/mL >3.10 A serum Folat e cammie ntrat ion of < 3.1 ng/ml is consi dered to repre sent clini nikunj defic iency . Not Available [facility] [address] [facility] [address] [place], [address], 11/24/2024 18:00:42 11/24/1911/24/2024 TSH+F REE T4 free T4 1.200 NG/dL 0.930 - 1.770 Not Available [facility] [address] [facility] [address] [place], [address], 11/24/2024 18:00:43 11/24/19 25 11/24/2024 TSH+F REE T4 TSH 1.9800 uIU/m L 0.2700 - 4.2000 Not Available [facility] [address], [place], [address], 11/24/2024 18:00:43 11/24/1911/24/2024 CRP, C-ADONIS CTIVE PROTE IN CRP <5.0 mg/L <8.0 Not Available [facility] [address], [place], [address], 11/24/2024 18:17:05 11/24/19 25 11/24/2024 CBC W/ AUTOD IFF, COMPL ETE BLOOD COUNT WBC 4.4 K/uL 3.6 - 10.0 Not Available [facility] [address], [place], [address], 11/24/2024 18:18:46 11/24/19 25 11/24/2024 CBC W/ AUTOD IFF, COMPL ETE BLOOD COUNT RBC 4.0 M/uL 3.9 - 5.0 Not Available [facility] [address], [place], [address], 11/24/2024 18:18:46 11/24/19 25 11/24/2024 CBC W/ AUTOD IFF, COMPL ETE BLOOD COUNT hemoglobin 13.2 g/dL 12.0 - 15.0 Not Available [facility] [address], [place], [address], 11/24/2024 18:18:46 11/24/19 25 11/24/2024 CBC W/ AUTOD IFF, COMPL ETE BLOOD COUNT hematocrit 38.8 % 35.0 - 45.0 Not Available [facility] [address], [place], [address], 11/24/2024 18:18:46 11/24/19 25 11/24/2024 CBC W/ AUTOD IFF, COMPL ETE BLOOD COUNT MCV 96.1 fL 80.0 - 99.0 Not Available [facility], [place], [address], 11/24/2024 18:18:46 11/24/19 25 11/24/2024 CBC W/ AUTOD IFF, COMPL ETE BLOOD COUNT MCH 32.7 pg 27.0 - 33.0 Not Available [facility], [place], [address], 11/24/2024 18:18:46 11/24/19 25 11/24/2024 CBC W/ AUTOD IFF, COMPL ETE BLOOD COUNT MCHC 34.0 g/dL 32.0 - 36.0 Not Available [facility] [address] [place] [address] [address], [place], [address], 11/24/2024 18:18:46 11/24/19 25 11/24/2024 CBC W/ AUTOD IFF, COMPL ETE BLOOD COUNT RDW 13.9 % 11.0 - 15.0 Not Available [facility] [address], [place], [address], 11/24/2024 18:18:46 11/24/19 25 11/24/2024 CBC W/ AUTOD IFF, COMPL ETE BLOOD COUNT nucleated RBC 0 % 0 - 2 Not Available [facility] [address] [place] [address] [address], [place], [address], 11/24/2024 18:18:46 11/24/19 25 11/24/2024 CBC W/ AUTOD IFF, COMPL ETE BLOOD COUNT platelet 263 K/uL 140 - 440 Not Available [facility], [place], [address], 11/24/2024 18:18:46 11/24/19 25 11/24/2024 CBC W/ AUTOD IFF, COMPL ETE BLOOD COUNT MPV 7.6 fL 7.4 - 10.4 Not Available [facility] [address] [facility] [address], [place], [address], 11/24/2024 18:18:46 11/24/19 25 11/24/2024 CBC W/ AUTOD IFF, COMPL ETE BLOOD COUNT neutrophil, percentage 43.4 % Not Available [facility] [address] [facility] [address], [place], [address], 11/24/2024 18:18:46 11/24/19 25 11/24/2024 CBC W/ AUTOD IFF, COMPL ETE BLOOD COUNT lymphocyte, percentage 43.4 % Not Available [facility] [facility] [address], [place], [address], 11/24/2024 18:18:46 11/24/19 25 11/24/2024 CBC W/ AUTOD IFF, COMPL ETE BLOOD COUNT monocyte, percentage 8.2 % Not Available [facility] [facility] [address], [place], [address], 11/24/2024 18:18:46 11/24/19 25 11/24/2024 CBC W/ AUTOD IFF, COMPL ETE BLOOD COUNT eosinophil, percentage 4.5 % Not Available [facility] [address] [place], [place] [address]y [address], [place], [address], 11/24/2024 18:18:46 11/24/19 25 11/24/2024 CBC W/ AUTOD IFF, COMPL ETE BLOOD COUNT basophil, percentage 0.5 % Not Available [facility], [place], [address], 11/24/2024 18:18:46 11/24/19 25 11/24/2024 CBC W/ AUTOD IFF, COMPL ETE BLOOD COUNT neutrophil, absolute 1.9 K/uL 1.5 - 7.5 Not Available [facility] [facility] [address], [place], [address], 11/24/2024 18:18:46 11/24/19 25 11/24/2024 CBC W/ AUTOD IFF, COMPL ETE BLOOD COUNT lymphocyte, absolute 1.9 K/uL 0.8 - 4.0 Not Available [facility] [address] [place], [place] [address]y [address], [place], [address], 11/24/2024 18:18:46 11/24/19 25 11/24/2024 CBC W/ AUTOD IFF, COMPL ETE BLOOD COUNT monocyte, absolute 0.4 K/uL 0.1 - 1.0 Not Available [facility] [address] [place], [place] [address]y [address], [place], [address], 11/24/2024 18:18:46 11/24/19 25 11/24/2024 CBC W/ AUTOD IFF, COMPL ETE BLOOD COUNT eosinophil, absolute 0.2 K/uL 0.1 - 1.0 Not Available [facility] [address] [place], [place] [address]y [address], [place], [address], 11/24/2024 18:18:46 11/24/19 25 11/24/2024 CBC W/ AUTOD IFF, COMPL ETE BLOOD COUNT basophil, absolute 0.0 K/uL 0.0 - 0.2 Not Available [facility] [address] [place], [place] [address]y [address], [place], [address], 11/24/2024 18:18:46 11/24/19 25 11/25/2024 SED RATE, WESTE TIERNEYREN sed rate by modified westclarkren 29 mm/h < or = 30 normal Not Available [facility] [address] [place], [place] [address]y [address], [place], [address], 11/25/2024 12:27:14 11/24/19 25 11/28/2024 HOMOC YSTEI NE, CARDI OVASC ULAR homocysteine 11.9 umol/ L <10.4 high Homoc ystei ne is incre ased by funct ional defic iency of folat e or vitam in B12. Testi ng for methy lmalo leon acid diffe renti ates betwe en these defic ienci es. Other cause s of incre ased homoc ystei ne inclu de renal failu re, folat e antag onist s such as metho trexa te and pheny toin, and expos ure to nitro us oxide . Mary collins J, et al., Vika Inter n Med. 1999; 131(5 ):331 -9. Not Available [facility] [address] [place], [place] [address]y [address], [place], [address], 11/28/2024 04:48:17 11/24/19 25 11/28/2024 MMA, METHY LMALO LEON ACID, SERUM methylmaloni c acid 159 nmol/ L 69-390 Serum methy lmalo leon acid (MMA) level s are used to diagn ose and monit or sever al rare inbor n error s of metab olism , inclu ding methy lmalo leon acidu carmelo. The enzym atic conve rsion of MMA to succi leon acid requi res vitam in B12 (elen osyl- cobal weinstein) as a cofac tor. Serum MMA level s are also used for asses sing funct ional vitam in B12 defic iency . Vitam in B12 is essen tial for neuro devel opmen t, parti cular ly early in pregn tima. Undia gnose d mater nal vitam in B12 defic iency may be assoc iated with adver se /neon atal outco mes, such as neura l tube defec ts and intra uteri ne growt h restr ictio n. [facility] utili zed Multi -Moda l Decom posit ion (MMD) lady sis to estab ritchie first and secon d trime ster- speci fic MMA refer ence inter vals in pregn tima, as given below : MMA, First trime ster (<13 wks gesta tion) : 58-16 7 nmol/ L MMA, Secon d trime ster (13-2 3 wks gesta tion) : 63-24 1 nmol/ L This test was devel oped and its lady tical perfo rmanc e ravinder cteri stics have been deter mined by [facility]. It has not been clear ed or appro caryn by the FDA. This assay has been valid ated pursu ant to the CLIA regul ation s and is used for clini nikunj purpo ses. Not Available [facility] [address], [place], [address], 11/28/2024 04:48:18 11/24/19 25 11/30/2024 VITAM IN B6 vitamin B6, plasma 12.3 NG/mL 2.1-21 .7 Vitam in suppl ement ation withi n 24 hours prior to blood draw may affec t the accur acy of the resul ts. This test was devel oped and its lady tical perfo rmanc e ravinder cteri stics have been deter mined by [facility] Dinesh Groveri jessica [place], [place]. It has not been clear ed or appro caryn by the U.S. Food and Drug Admin istra tion. This assay has been valid ated pursu ant to the CLIA regul ation s and is used for clini nikunj purpo ses. Not Available [facility] [address], [place], [address], 11/30/2024 17:29:23 11/24/19 25 11/24/2024 VENIP UNCTU RE results Compl ete Not Available [facility] [address], [place], [address], 11/24/2024 12:43:02 12/31/19 24 12/31/2023 XR, hand, 3 or more view INDICA TION: Female 73 years - M79.64 1 Pain in right hand. TECHNI QUE: HAND 3V RIGHT. COMPAR ALEC: None. FINDIN GS: There is no fractu re or disloc ation. The trabec ular lines are normal in appear ance. There are no lytic or blasti c change s. There is no perios teal reacti on. Degene rative change s involv e the proxim al and distal interp halang eal joints and to a greate r extent the 1st carpom etacar pal articu lation . There is joint space narrow ing with sclero sis. There is latera l sublux ation at the 1st carpom etacar pal articu lation . The soft tissue s are within normal limits . There are no radiop aque foreig n bodies . IMPRES DALLIN: Modera te degene rative joint diseas e RIGHT hand. Electr onical ly Signed By: Sylvester raines D.O., Paul Sign Date: [id number] [facility], [place], [address], 10/01/2024 19:46:29 12/31/19 24 12/31/2023 wrist 4V right INDICA TION:F emale 73 years - M25.53 1 Pain in right wrist. TECHNI QUE: WRIST 4V RIGHT. COMPAR ALEC: None. FINDIN GS: There is no fractu re or disloc ation. The carpal bones are normal in appear ance. The trabec ular lines are normal in appear ance. There is no perios teal reacti on. Degene rative change s involv e the 1st carpom etacar pal and radioc arpal articu lation s. There is joint space narrow ing. There is latera l sublux ation at the 1st carpom etacar pal articu lation . The soft tissue s are within normal limits . There are no radiop aque foreig n bodies . IMPRES DALLIN: Modera te degene rative joint diseas e RIGHT wrist. Electr onical ly Signed By: Sylvester raines D.O., Paul Sign Date: [id number] [facility], [place], [address], 10/01/2024 19:46:34 10/18/2010/18/2024 CT, abdom en + pelvi s, w/o contr ast INDICA TION: R10.30 Lower abdomi nal pain, unspec ified. TECHNI QUE: CT ABDOME N AND PELVIS WITHOU T CONTRA ST. Multip lanar reform ats were obtain ed. Radiat ion dose optimi zation techni que was utiliz ed. COMPAR ALEC: None FINDIN GS: Evalua tion of the soft tissue s is limite d withou t intrav enous contra st. Lung bases: Unrema rkable Vascul ar: Athero matous plaque of the aorta and branch vessel s visual ized.. Liver: Unrema rkable Gallbl adder: Andrzej cross is Pancre as: Unrema rkable Spleen : Unrema rkable Adrena l glands : Unrema rkable Kidney s: 1.3 cm low-de nsity right renal cyst. Mild renal atroph y. No hydron ephros is or calcul i visual ized. Lymph nodes: Unrema rkable Pelvis and reprod uctive organs : Unrema rkable Bowel: Evalua tion of the bowel is limite d withou t enteri c contra st. Divert iculos is coli . Mild wall thicke rosalinda and inflam mation within the sigmoi d region , possib ly divert icula in this or coliti s. Correl ate clinic ally. Osseou s struct ures: Degene rative change s of the visual ized osseou s struct ures. IMPRES DALLIN: Divert iculos is coli . Mild wall thicke rosalinda and inflam mation within the sigmoi d region , possib ly divert icula in this or coliti s. Correl ate clinic ally. Andrzej cross is Electr onical ly Signed By: Georgie Smith D.O., Board Certif ied Radiol ogist Sign Date: [id number] [facility] Locations, [place], [address], 10/18/2024 12:37:16 Result Notes Documentation Provider Name and Address Organization Details Recorded Time Xr, Hand, 3 Or More View : INDICATION: Female 73 years - M79.641 Pain in right hand. TECHNIQUE: HAND 3V RIGHT. COMPARISON: None. FINDINGS: There is no fracture or dislocation. The trabecular lines are normal in appearance. There are no lytic or blastic changes. There is no periosteal reaction. Degenerative changes involve the proximal and distal interphalangeal joints and to a greater extent the 1st carpometacarpal articulation. There is joint space narrowing with sclerosis. There is lateral subluxation at the 1st carpometacarpal articulation. The soft tissues are within normal limits. There are no radiopaque foreign bodies. IMPRESSION: Moderate degenerative joint disease RIGHT hand. Electronically Signed By: Aydee Dickson Paul Sign Date: 31-DEC-23 Not Available [facility] 10/01/2024 20:04:22 Ct, Abdomen + Pelvis, W/o Contrast : INDICATION: R10.30 Lower abdominal pain, unspecified. TECHNIQUE: CT ABDOMEN AND PELVIS WITHOUT CONTRAST. Multiplanar reformats were obtained. Radiation dose optimization technique was utilized. COMPARISON: None FINDINGS: Evaluation of the soft tissues is limited without intravenous contrast. Lung bases: Unremarkable Vascular: Atheromatous plaque of the aorta and branch vessels visualized.. Liver: Unremarkable Gallbladder: Cholelithiasis Pancreas: Unremarkable Spleen: Unremarkable Adrenal glands: Unremarkable Kidneys: 1.3 cm low-density right renal cyst. Mild renal atrophy. No hydronephrosis or calculi visualized. Lymph nodes: Unremarkable Pelvis and reproductive organs: Unremarkable Bowel: Evaluation of the bowel is limited without enteric contrast. Diverticulosis coli . Mild wall thickening and inflammation within the sigmoid region, possibly diverticula in this or colitis. Correlate clinically. Osseous structures: Degenerative changes of the visualized osseous structures. IMPRESSION: Diverticulosis coli . Mild wall thickening and inflammation within the sigmoid region, possibly diverticula in this or colitis. Correlate clinically. Cholelithiasis Electronically Signed By: David Smith D.O., Board Certified Radiologist Sign Date: 18-OCT-24 SHEKHAR ARITA [address], [place], [address], [facility] 10/18/2024 12:37:16 Problems Name Problem SNOMED Code Status Onset Date Resolution Date Notes Provider Name and Address Organization Details Recorded Time Chronic obstructive pulmonary disease 26695749 Active 2020 ELIZABETH AYALA APRN [address], [place], [address], [facility], [facility] 15:17:28 Essential hypertension 52268103 Active 2024 ELIZABETH AYALA APRN [address], [place], [address], [facility], [facility] 15:17:38 Allergic rhinitis 97060625 Active 2024 ELIZABETH AYALA APRN [address], [place], [address], [facility], [facility] 15:17:25 Osteoarthritis 391456997 Active 2024 ELIZABETH AYALA APRN [address], [place], [address], [facility], [facility] 15:17:42 Gastroesophage al reflux disease 171114697 Active 2024 ELIZABETH AYALA APRN [address], [place], [address], [facility], [facility] 15:17:40 Cramp in lower limb 675472016 Active 2024 ELIZABETH AYALA APRN [address], [place], [address], [facility], [facility] 15:17:32 Diverticulosis of large intestine 071637621 Active 2024 ELIZABETH AYALA APRN [address], [place], [address], [facility], [facility] 15:17:34 Solitary nodule of lung 716368411 Active 2024 ELIZABETH AYALA APRN [address], [place], [address], [place] [facility], [facility] 5 15:17:51 Dyspnea 719127274 Active 2024 ELIZABETHShaina AYALA, [employer]FORMER [employer] [address], [place], [address], [facility], [facility] 5 15:17:36 Recurrent urinary tract infection 460000330 Active 2024 ELIZABETH LUCY, [employer]FORM[employer] [address], [place], [address], [facility], [facility] 5 15:17:53 Problem Notes None recorded. Procedures Surgical History Date Name Laterality Status Provider Name and Address Organization Details Recorded Time 4 release of trigger finger of right hand completed [facility] 11/11/2024 14:05:45 2 total replacement of left knee joint completed [facility] 11/11/2024 14:06:10 1 Date of Last Mammogram completed Sybil Cannon [facility] 12/31/2023 15:37:44 0 colonoscopy completed [facility] 11/11/2024 14:04:41 7 total replacement of right knee joint completed [facility] 11/11/2024 14:06:20 Carpal tunnel surgery completed Vanessa [facility] 11/11/2024 14:05:02 procedure on shoulder completed [facility] 11/11/2024 14:07:07 Imaging Results None recorded. Procedure Notes None recorded. Medical Equipment None Reported. Allergies No known drug allergies Medications Name Sig Start Date Stop Date Status Note LastModified by Organization Details LastModified Time dbgb - diclo 3% / baclo 2% / marta 6% / bupiv hcl 1% versati Apply 1-3 grams to the affected area 3-4 times daily (KNEES) 11/11 completed Not Available Not Available Not Available celecoxib 200 mg capsule TAKE 1 CAPSULE BY MOUTH EVERY DAY IN THE MORNING active Not Available Not Available No t Available amoxicilli n 500 mg capsule TAKE 4 CAPSULES BY MOUTH 1 HOUR PRIOR TO DENTAL APPOINTME NT active Not Available Not Available No t Available atorvastat in 40 mg tablet TAKE 1 TABLET BY MOUTH EVERY DAY 11/11 completed Not Available Not Available Not Available fluticason e 250 mcg-salmet cee 50 mcg/dose blistr powdr for inhalation Inhale 1 puff twice a day by inhalatio n route. 11/11 completed Not Available Not Available Not Available prednisone 10 mg tablet 2 tabs bid x 2 days, 3 tabs daily x 3 days, 2 tabs daily x 2 days, 1 tab daily x 2 days 12/31 completed Not Available Not Available Not Available atorvastat in 20 mg tablet TAKE 1 TABLET BY MOUTH EVERY DAY 10/17 completed Not Available Not Available Not Available cetirizine 10 mg tablet TAKE 1 TABLET BY MOUTH TWICE A DAY FOR 7 DAYS 11/11 completed Not Available Not Available Not Available carbamazep ine ER 100 mg tablet,ext ended release,12 hr TAKE 1 TABLET BY MOUTH TWICE A DAY 11/11 completed Not Available Not Available Not Available prednisone 20 mg tablet TAKE 2 TABLETS BY MOUTH EVERY DAY FOR 5 DAYS 11/11 completed Not Available Not Available Not Available metronidaz ole 500 mg tablet Take 1 tablet every 12 hours by oral route. 11/01 completed Not Available Not Available Not Available phenytoin sodium extended 100 mg capsule TAKE 1 CAPSULE BY MOUTH 3 TIMES A DAY 11/11 completed Not Available Not Available Not Available amlodipine 5 mg tablet TAKE 1 TABLET BY MOUTH EVERY DAY 2024 active Not Available Not Available Not Avai lable ciprofloxa shanel 500 mg tablet Take 1 tablet every 12 hours by oral route. 11/01 completed Not Available Not Available Not Available sulfametho xazole 800 mg-trimeth oprim 160 mg tablet TAKE 1 TABLET BY MOUTH EVERY 12 HOURS FOR 7 DAYS 11/11 completed Not Available Not Available Not Available amoxicilli n 875 mg tablet TAKE 1 TABLET BY MOUTH EVERY 12 HOURS FOR 10 DAYS 12/31 completed Not Available Not Available Not Available alprazolam 0.25 mg tablet TAKE 1 TABLET BY MOUTH 30 MINUTES PRIOR TO MRI, MAY REPEAT 1 TIME 11/11 completed Not Available Not Available Not Available baclofen 10 mg tablet TAKE 1 TABLET BY MOUTH THREE TIMES A DAY 11/11 completed Not Available Not Available Not Available tacrolimus 0.1 % topical ointment APPLY TO RASH FACE AND NECK AND GROIN ONCE TO TWICE DAILY DIRECTED active Not Available Not Available No t Available ropinirole 0.5 mg tablet TAKE 1 TABLET BY MOUTH EVERY DAY AT BEDTIME 1-3 HOURS BEFORE BEDTIME active Not Available Not Available No t Available gabapentin 300 mg capsule Take 1 capsule 3 times a day by oral route. active 1 in AM and 2 at night Not Available Not Available Not Available omeprazole 20 mg capsule,de layed release TAKE 1 CAPSULE BY MOUTH EVERY DAY active Not Available Not Available No t Available albuterol sulfate HFA 90 mcg/actuat ion aerosol inhaler INHALE 2 PUFFS EVERY 6 HOURS NEEDED FOR WHEEZING/ SHORTNESS OF BREATH active Not Available Not Available No t Available ipratropiu m bromide 42 mcg (0.06 %) nasal spray PLEASE SEE ATTACHED FOR DETAILED DIRECTION S 11/11 completed Not Available Not Available Not Available trihexyphe nidyl 2 mg tablet 1 MG ORALLY 2 TIMES A DAY FOR 30 DAYS GIVE WITH FOOD (MEAL/SNA CK) active Not Available Not Available No t Available cefdinir 300 mg capsule Take 1 capsule every 12 hours by oral route. 12/31 completed Not Available Not Available Not Available amoxicilli n 875 mg-potassi um clavulanat e 125 mg tablet TAKE 1 TABLET BY MOUTH EVERY 12 HOURS FOR 7 DAYS 12/31 completed Not Available Not Available Not Available oxycodone 5 mg tablet TAKE 1 TABLET BY MOUTH EVERY 4 HOURS NEEDED 11/11 completed Not Available Not Available Not Available Sinus Nasal Whitmer 0.05 % TAKE 2 SPRAYS (INTRANAS AL) EVERY 12 HOURS (NASAL CONGESTIO N) FOR 3 DAYS 11/11 completed Not Available Not Available Not Available ciclopirox 0.77 % topical cream APPLY TWICE A DAY TO FEET FOR 1 MONTH, REPEAT NEEDED active Not Available Not Available No t Available nitrofuran toin monohydrat e/macrocry stals 100 mg capsule TAKE 1 CAPSULE BY MOUTH EVERY 12 HOURS 11/11 completed Not Available Not Available Not Available melatonin 11/11 completed Not Available Not Available Not Available omeprazole 11/11 completed Not Available Not Available Not Available phenytoin 11/11 completed Not Available Not Available Not Available gabapentin 300 mg x 5 daily 11/11 completed Not Available Not Available Not Available vitamin B12 500 mcg-folic acid 400 mcg tablet Take by oral route. active Not Available Not Available No t Available Anoro Ellipta 62.5 mcg-25 mcg/actuat ion powder for inhalation INHALE 1 PUFFS EVERY DAY FOR 30 DAYS 11/11 completed Not Available Not Available Not Available Spiriva Respimat 11/11 completed Not Available Not Available Not Available Stiolto Respimat 11/11 completed Not Available Not Available Not Available Trelegy Ellipta 100 mcg-62.5 mcg-25 mcg powder for inhalation INHALE 1 PUFF EVERY DAY FOR 30 DAYS active Not Available Not Available No t Available Vitals Date Recorded Body height Body mass index (BMI) Body weight Body temperature Heart rate Respiratory rate Oxygen saturation Oxygen saturation in Arterial blood by Pulse oximetry Pain severity - 0-10 verbal numeric rating [Score] - Reported Systolic And Diastolic Provider Name and Address Organization Details Last Updated DateTime 5 167.64 cm 26.8 kg/m2 85299.3 3 g 97.7 [degF] 69 /min 16 /min 98 % 98 % 0 116/70 mm[Hg] Vanessa Perez [facility], [facility] 5 14:09:23 Date Recorded Body weight Body mass index (BMI) Body height Body temperature Heart rate Oxygen saturation Oxygen saturation in Arterial blood by Pulse oximetry Systolic And Diastolic Provider Name and Address Organization Details Last Updated DateTime 4 64974.8 9 g 27.8 kg/m2 167.64 cm 97.9 [degF] 76 /min 93 % 93 % 122/76 mm[Hg] Sybil Cannon [facility], [facility] 4 15:42:33 Date Recorded Body mass index (BMI) Body weight Provider Name and Address Organization Details Last Updated DateTime 09/30/2024 27.9 kg/m2 94436.48 g Lilo Abraham [facility], [facility] 09/30/2024 09:45:51 Date Recorded Body height Body temperature Heart rate Oxygen saturation Oxygen saturation in Arterial blood by Pulse oximetry Systolic And Diastolic Provider Name and Address Organization Details Last Updated DateTime 4 167.64 cm 97.8 [degF] 90 /min 98 % 98 % 120/70 mm[Hg] Harshad Hernandez [facility], [facility] 4 09:49:58 Date Recorded Body height Body mass index (BMI) Body weight Body temperature Heart rate Respiratory rate Oxygen saturation Oxygen saturation in Arterial blood by Pulse oximetry Systolic And Diastolic Provider Name and Address Organization Details Last Updated DateTime 4 167.64 cm 27.2 kg/m2 44742.9 6 g 97.3 [degF] 74 /min 16 /min 98 % 98 % 122/84 mm[Hg] Sepideh Guzmán [facility], [facility] 4 09:05:49 Date Recorded Body height Body mass index (BMI) Body weight Body temperature Heart rate Oxygen saturation Oxygen saturation in Arterial blood by Pulse oximetry Systolic And Diastolic Provider Name and Address Organization Details Last Updated DateTime 4 167.64 cm 27.3 kg/m2 75850.1 1 g 97.8 [degF] 76 /min 98 % 98 % 122/82 mm[Hg] Harshad Hernandez [facility], [facility] 4 14:24:50 Social History Question Answer Notes LastModified by Organizat ion Details LastModified Time Tobacco Smoking Status Former Smoker Rashida bravo [facility], [facility] 12/28/2020 11:47:00 Do You Have An Advance Directive? Yes Information not available 12/28/2020 Is Your Home Air Conditioned? Yes Information not available 11/11/2024 What Is Your Level Of Caffeine Consumption? Moderate [email or web address] Information not available 12/28/2020 What Type Of Diet Are You Following? REGULAR [email or web address] Information not available 12/28/2020 Education 2 Year College Information not available 12/31/2023 When Did You Quit Smoking? 16+yearssinc elastcigaret te 20 Years Ago Information not available 11/11/2024 Where Do You Live? Condo Information not available 11/11/2024 Marital Status [email or web address] Informatio n not available 12/31/2023 What Is Your Relationship Status? [email or web address] Information not available 12/31/2023 Are You Sexually Active? No [email or web address] Information not available 12/28/2020 Are You Passively Exposed To Smoke? No Information not available 11/11/2024 Are There Any Smokers In Your House? No Information not available 11/11/2024 How Many Years Have You Smoked Tobacco? 40 Information not available 11/11/2024 Do You Have Any Dietary Restrictions? No Information not available 11/11/2024 Sex: Female Functional Status Question Answer Note LastModified by Organizat ion Details LastModified Time Do you use any illicit or recreational drugs? No Information not available 11/11/2024 Do you or have you ever used any other forms of tobacco or nicotine? No Information not available 11/11/2024 What is your level of alcohol consumption? Occasional [email or web address] Information not available 12/28/2020 Do you or have you ever used smokeless tobacco? Never used smokeless tobacco [email or web address] Information not available 12/28/2020 Are you currently employed? No Information not available 11/11/2024 Have you been exposed to chemicals or toxins? No Information not available 11/11/2024 What is your exercise level? Occasional [email or web address] Information not available 12/28/2020 Mental Status None recorded. Family History Relationship Description Onset Age of this Age Resolved Age Notes LastModified by Organization Details LastModified Time Mother Diabetes mellitus [email or web address] Not available 2020 11:46:37 Mother Congestive heart failure Not available 2020 11:46:37 Mother Heart disease [email or web address] Not available 2020 11:46:37 Father Congestive heart failure Not available 2020 11:46:37 Father Heart disease [email or web address] Not available 2020 11:46:37 Father Diabetes mellitus [email or web address] Not available 2020 11:46:37 Brother Congestive heart failure [email or web address] Not available 2020 11:46:37 Brother Diabetes mellitus Not available 2020 11:46:37 Brother Heart disease Not available 2020 11:46:37 Sister Diabetes mellitus Not available 2020 11:46:37 Medical History Condition Response Emphysema/COPD Y Nerve Damage / Neuropathy Y GERD/Ulcer Y Allergies (other than meds) Y Gynecological History Statement/Question Response Menses Monthly N STIs/STDs N If Post Menopausal, Age at Menopause 44 Date of Last Mammogram 03/29/2021 Age at First Child 18 Obstetrics History GPAL:G 0 P 0 0 0 0 Immunizations Vaccine Type Date Status Note Provider Nam e and Address Organization Details Recorded Time COVID-19, mRNA, LNP-S, PF, 100 mcg/0.5mL dose or 50 mcg/0.25mL dose 02/14/2021 completed [facility] 01/16/2022 10:29:18 COVID-19, mRNA, LNP-S, PF, 100 mcg/0.5mL dose or 50 mcg/0.25mL dose 01/16/2021 completed [facility] 01/16/2022 10:29:18 Past Encounters Encounter ID Performer Location Encounter Start Date Encounter Closed Date Diagnosis/Indication Diagnosis SNOMED-CT Code Diagnosis ICD10 Code Diagnosis Note [id number] [facility] [address] [place] [address] 12/28/2020 11:18:34 12/28/2020 20:30:21 Localized swelling, mass and lump, lower limb 341410876 R22.42 advised patient to take Tylenol and or ibuprofen. If patient decides she would like an x-ray or MRI she may contact the office and we will submit an order to [facility]. 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 Patient is to contact her orthopedis t to see if anything further should be done. [id number] [facility] [address] [place] [address] 01/16/2022 09:37:54 01/16/2022 19:40:15 Chronic sinusitis 24586095 J32.9 Acute, symptomati c; initial visit. Based on History Physical patients symptoms consistent with Chronic on Acute Rhinosinus itis. Will elect to treat with medication (s) as below and recommende d taking antibiotic with yogurt with acidophilu s and supportive treatment including rest and hydration. If no better in 5 to 7 days or symptoms worsen in the interim to return for reevaluati on. Patient fully understand s discharge instructio ns and is in total agreement of plan of care. Patient to F/U with her ENT in [facility]. next month for if no improvemen t in her symptoms may need CT of sinuses and scoping Congestion of nasal sinus 13232969 R09.81 Acute, symptomati c; initial visit. Recommende d antibiotic as prescribed , rest, adequate hydration, cool mist vaporizer at bedside and short course of Prednisone as above taken per package instructio ns. If develops fever, shortness of breath, pleurodyni a, chest tightness/ wheezing or chest pain to return through walk-in or if after hours nearest ED evaluation . [id number] MD KIERSTEN Cooper [facility] [address] [place] [address] 12/31/2023 15:24:57 12/31/2023 16:18:35 Pain of right wrist [id number] 40749 M25.531 r/o carpal tunnelr/o djd/rheuma toidwill refer to orthotylen ol prn /voltaren oint prnxray Pain in right hand 08825 43202 70700 M79.641 as above [id number] MD KIERSTEN Jimenez [facility] [address] [place] [address] 09/30/2024 09:01:25 09/30/2024 11:26:30 Urinary symptoms [id number] R39.9 Newly undiagnose d problem with uncertain prognosis requiring further diagnostic work up. Urine dipstick indicative of a UTI which will be followed up with a culture and sensitivit y. We will treat empiricall y with Macrobid 100 mg twice daily x 7 days and recommende d forcing fluids/cam quate hydration and rest. If symptoms are no better in 3 to 5 days or worsen to return for reevaluati on. If she develops fever, abdominal/ flank pains or nausea/vom iting to report to the nearest ED to rule out a pyelonephr itis. [id number] Gil Fabian MD [facility] [address] [place] [address] 10/17/2024 08:45:54 10/17/2024 18:57:05 Lower abdominal pain 72796964 R10.30 Newly undiagnose d problem with uncertain prognosis requiring further diagnostic work up. Urine dipstick not indicative of a UTI which will be followed up with a culture and sensitivit y. Due to her persistent LUTS and now associated lower abdominal pain she is in need of imaging (to evaluate for infectious , inflammato ry or neoplastic etiologies ) which is not available on the premises on the weekend. Recommende d ED evaluation which she declined and would like to return in the morning for STAT CT of abdomen/pe lvis. In the interim she was advised that if she develops worsening abdominal pain, chills, fever or hematuria to report to the nearest ED. [id number] Gil Fabian MD [facility] [address] [place] [address] 11/01/2024 14:00:51 11/01/2024 16:18:58 Cystitis [id number] N30.90 - Patient has a history of recurrent urinary tract infections (UTIs) and has been treated with antibiotic s previously without resolution of symptoms.- Urinalysis today is normal with no evidence of infection. - Previous urine culture on October 17 showed no growth, and the culture from September 30 showed Klebsiella .- Imaging on October 18 suggested possible diverticul itis or colitis, but findings were not definitive .- Patient reports persistent pain in the bladder area, exacerbate d by both standing and urination. - Physical examinatio n reveals tenderness in the lower abdomen.- Educated the patient on the need for further evaluation by a urologist to determine the underlying cause of her symptoms.- Referral to a urologist will be initiated. - Patient needs to establish care with a primary care physician (PCP) for ongoing management and coordinati on of care.- Harshad is working on scheduling an appointmen t with a primary care physician. [id number] ELIZABETH AYALA APRN [facility] PCP [address] [place] [address] 11/11/2024 13:43:08 11/14/2024 21:58:02 Essential hypertension [id number] I10 Chronic, stableAt goal, 116/70 in officeCont inue amlodipine 5 mg PO daily Chronic ob structive pulmonary disease 29699179 J44.9 Chronic, stable without exacerbati onPatient reports symptoms of SOB and using albuterol frequently and Trelegy more than as prescribed Continue Trelegy 100-62.5-2 5 mcg 1 puff daily, adherence reinforced Continue albuterol 90 mcg/actuat ionRecomme nd she discuss breathing with pulmonolog ist Dr Mercado Allergic rhinitis 123130 04 J30.9 Chronic, stableSymp toms well controlled Continue avoidance of triggers Recurrent urinary tract infection [id number] N39.0 Acute and recurrent1 pt had culture proven UTI with K pneumoniae patient had symptoms of UTI with normal culture- patient continues to have pain prior to and during urinationR eferral to Dr. Bernal Osteoarthritis [id number] M19.90 Chronic, stableCont inue celebrex 200 mg PO dailyExerc ise daily Gastroesop hageal reflux disease 296042269 K21.9 Chronic, stableCont inue omeprazole 20 mg PO dailyConti nue dietary management Cramp in lower limb 4499 89827 R25.2 Chronic, stableCont inue ropinerole Continue neurontin 300 mg PO 1 in am and 2 at nightConti nue H00Djbgc labs Diverticul osis of large intestine 565811087 K57.30 Chronic, stable, with recent exacerbati onContinue to monitor symptoms Solitary n odule of lung 698112440 R91.1 Chronic, stableCT chest was stableObta in recordsFol low with pulmonolog ist Dr. 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 revisiting cardiology for stress testing if dyspnea persistsOb tain recordsPat ient will follow up with cardiology in [place] when she visits in December Health Concerns Section Related Observation LastModified by Organization Detai ls LastModified Time None Recorded Concern Status LastModified by Organization Details LastModified Time None Recorded Advance Directives Directive Y: Payers Insurance Date Sequence Insurance Name Policy Number Policy Ann Covered Member ID Ann Member ID Guarantor Name 01/06/2023 2 *SELF PAY* Mica Cartagena 11/19/2021 1 *SELF PAY* Mica Cartagena 12/28/2020 1 [place] Rebecca Cartagena [id number] Rebecca Cartagena 12/23/2024 1 [employer] MEDICARE ADVANTAGE PLAN (MEDICARE REPLACEMENT HMO) [id number] Rebecca Cartagena [id number] Rebecca Cartagena 01/07/2023 2 *SELF PAY* , Mica Cartagena Notes Date Note Type Note Provider Name and Address Organization Details Recorded Time 12/31/2023 text/html Express Covid Questions Are you feeling sick today? Includes any NEW symptom(s) among those listed previously that are NOT due to another health problem No Have you tested positive for COVID-19 in the past 10 days? No In the last 10 days, have you been exposed to someone who has tested positive for COVID-19? No Imported from [employer] on 12/31/2023 Esau Martin MD [address], [place], [address], [employer] 12/31/2023 16:16:55 09/30/2024 text/html complaintRepo rted bypatient.Reason for visit:acute complaint Genitourinary complaint:LUTS Quality:dysuria;urgenc y;frequency; LUTS Severity:worse Duration:intermittent; multiple times per day Onset/Timing:abrupt;a few days ago Context:no recent illness or injury Alleviating factors:nothing Aggravating factors:nothing Associated Symptoms:no fever; no discharge; no abdominal pain; no rash SHEKHAR ARITA [address], [place], [address], [employer] [place] [employer] 09/30/2024 10:23:03 10/17/2024 text/html complaintRepo rted bypatient.Reason for visit:follow-up of acute complaint(Previously evaluated/treated by this provider through [facility] on 09/30/2024 for LUTS. At that time her urine for culture and sensitivity grew out Klebsiella pneumonia and her antibiotic was changed from Macrobid to sulfa that she has completed. Reports transient improvement of her lower urinary tract symptoms and now complains of intermittent lower abdominal pressure and therefore she seeks reevaluation. She denies any chills, fever, diarrhea, constipation or flank pain. Also denies any rectal bleeding or melena) SHEKHAR ARITA [address], [place], [address], [facility], [facility] 10/17/2024 15:27:33 11/01/2024 text/html The patient is a 74-year-old female presenting with persistent dysuria and lower abdominal pain. The patient reports ongoing dysuria and lower abdominal pain, which she describes as a deep, internal pain localized to the bladder area. The pain intensifies when she feels the urge to urinate and when she stands up, causing the bladder to move. She also experiences pain while ambulating to the bathroom. This is her third visit for these symptoms. During her first visit, she was diagnosed with a UTI and prescribed antibiotics for 7 days, which did not alleviate her symptoms. During her second visit, a CT scan suggested possible diverticulitis, and she was prescribed another 7-day course of antibiotics, which she completed last Friday without improvement. She describes the current pain as different from the initial burning sensation, noting that it now feels more internal and is associated with bladder movement. She denies nausea, emesis, diarrhea, or vaginal discharge. SHEKHAR PURI [address], [place], [address], [facility], [facility] 11/01/2024 15:14:04 11/11/2024 text/html Patient reports since she has had burning urination and difficulty urinating. She has pain when she sits down to urinate and the pain is so bad as she begins to urinate she will double over in pain. She had K. pneumoniae. She was also treated for recent case of diverticulitis. Today at present pain is not bothering her. It is intermittent. She is requesting neurology referral.She denies other acute complaints. She is under care of pulmonology, cardiology, neurology, and PCP [facility]. ELIZABETH AYALA, DI [address], [place], [address], [facility], [facility] 11/13/2024 15:18:13 OBGyn Episode No OBEpisode recorded.
--- OUTSIDE RECORDS SUMMARY | 2025-06-01 09:13 | XMS_ITS ---
Author Name [facility] Organization Unknown Encounters Encounter Type Encounter Reason Primary Diagnosis Location Date Emergency Pain in thoracic spine [facility] 05/22/2023 Care Team Organization Name Specialty Phone Email Start Date End Da [facility] 05/23/2023 [facility] 05/22/202305/10
--- OUTSIDE RECORDS SUMMARY | 2025-06-01 09:13 | XMS_ITS | Encounter Summary ---
Author Organization [facility] Address [address] [place] [address] Care Team Providers Care Economic Research Analyst Name Role Phone Nir Sun MD Primary Care Provider [phone] Encounter Details Date Type Department Care Team (Late st Contact Info) Description 05/22/2023 Procedure Pass [facility] Radiology, [facility] (CT Scan) [address] [place] [address] Social History Tobacco Use Types Packs/Day Years [...] on filedocumented in this encounter Care Teams Economic Research Analyst Relationship Specialty Start Date End Date Nir Sun MD [address] [place] [address] PCP - General Internal Medicine 05/22/23 documented as of this encounter
== END 2025-06-01 08:50 | disposition home or self-care (01) ==
LOC: HO.NEURO 08:49
PROVIDERS: Visit Provider Nurse Practitioner Family
DX: M54.2 Cervicalgia (principal); R29.898 Other symptoms and signs involving the musculoskeletal system; R33.9 Retention of urine, unspecified; R25.2 Cramp and spasm; G62.9 Polyneuropathy, unspecified; R94.131 Abnormal electromyogram [EMG]
CPT/HCPCS: 95869; 95885; 95886; 95913

== ENCOUNTER → 2025-06-01 08:59 | Outpatient (BNV) | payer MEDICARE, SELFPAY | PROVIDERS: Visit Provider Physical Medicine & Rehabilitation | DX: G62.89 Other specified polyneuropathies (principal); R20.0 Anesthesia of skin; R20.2 Paresthesia of skin | CPT/HCPCS: 95885; 95886; 95887; 95913 ==

== ENCOUNTER 2025-09-12 10:49 | Outpatient (AMB) | payer MEDICARE, SELFPAY ==
[2025-09-12 10:52] VITALS: BP 120/74; BMI 27.6
--- NOTE | 2025-09-12 10:52 | MHC.OFFVIS ---
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: No Accompanied by: Self / Same As Patient Allergies house dust Allergy (Unknown, Verified 03/31/25 13:20) Unknown Medication List - Last Reconciled 09/12/25 by JANUARY Lomas albuterol sulfate 90 mcg/actuation 1 inh inhalation Q4-6H PRN alprazolam 0.5 mg orally 30 minutes prior to MRI (cervical and lumbar MRIs), may repeat x's 1; 1 day amlodipine 5 mg PO DAILY celecoxib (Celebrex) 50 mg PO BID cetirizine (24Hour Allergy) 10 mg PO DAILY PRN cyanocobalamin (vitamin B-12) 1,000 mcg PO DAILY fluticasone propionate 50 mcg/actuation 2 sprays intranasal DAILY jrzrjmzymdd-wehqyzpso-tzmeresk 100-62.5-25 mcg (Trelegy Ellipta) 1 inh inhalation Q24H gabapentin 300 mg PO TID 90 days ipratropium bromide intranasal melatonin 10 mg PO BEDTIME PRN omeprazole 20 mg PO DAILY potassium mg PO DAILY ropinirole 1 mg PO BEDTIME tacrolimus-niacinamide 0.1-4 % ea topical vitamin B complex (Super B [id number]) PO HPI Comments Details: 75-yr-old female presents for f/u visit of generalized muscle cramps and RLS. In April, she slipped and fell while walking down a few stairs while wearing slippery socks. She struck her chin and right hand and shoulder, in her arm and shoulder are still bothering her. She feels that her muscles are not keeping her bones in place, for example, her right shoulder feels like it is slipping out of place. She does have an orthopedic appointment coming up to evaluate this. She had follow-up with [facility] vascular, and was advised to undergo left leg stab phlebectomy, however as she will be returning to [place], this will be scheduled after March of 2026. She continues to have multiple episodes of muscle cramping in legs, lateral abdominal core muscles, hands, as well as hand posturing. These can occur at rest and with activity. She states some days she has no cramps, but another day she may have up to 10 cramps in the day. When she has cramps in his difficult to walk or use her hands. She denies any difficulty swallowing or speaking. She does note that drinking alcohol we will exacerbate the cramps, so she tries to alternate water with alcohol. When asked to clarify how often she drinks alcohol, she states whenever she is out. For example, recently she was at a wedding, so she drank alcohol for the entirety of the 4-5 hour wedding, but otherwise drinks at least couple of beers, wine or cocktails when out to dinner. She recounts that everyone in her family also has muscle cramps, but hers are the most pronounced. She denies any family history of marked progressive muscle weakness, her oldest causes in his proximal 10 years older than her, and is still walking and talking the difficulty. She has decreased the Gabapentin to 300mg twice a day, and states that the muscle cramps are not better or worse. She does occasionally take mustard, which helps the muscle cramps some. She is taking ropinirole as needed for BLE restlessness and jumpiness. 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 Today, she brings in her previous muscle biopsy results report, which showed only scattered atrophic myofibers without evidence of inflammatory process. She is not interested in having a follow-up muscle biopsy, as she states she still has bothersome itching/discomfort in the previous muscle biopsy site. She has not had previously requested lab work yet. 06/01/2025, BUE and BLE EMG/NCS: IMPRESSION: This is an abnormal study. NCS show evidence of axonal loss in almost all motor nerves testes and even the sensory nerves. Distal latencies and conduction velocities only minimally abnormal, without evidence of conduction block. Needle EMG shows widespread denervation and reinnervation, found in cervical and lumbar regions. CLINICAL COMMENT: Based on today's study, I can not rule out probable ALS based on signs seen on 2 regions (cervical and lumbar). However, abnormal sensory findings are unusual to see in ALS. Further workup may need to be done to rule out other diseases that may mimic ALS, ex. cervical or lumbar stenosis, myopathy with inflammatory features (inclusion body myositis). 03/31/2025, HPI: 74-yr-old female presents for f/u visit of generalized muscle cramps and RLS. Patient was last seen 1 year ago by myself. 04/13/2024, brain MRI with and without contrast: Showed nonspecific tiny focus of hyperintensity involving the left anterior temporal lobe on post contrast imaging which is not clearly localized, and may reflect artifact. Otherwise no focus of abnormal enhancement. Mild scattered patchy areas of T2 prolongation within the subcortical and deep periventricular white matter, suggestive of chronic microvascular ischemia. No acute intracranial hemorrhage or infarction. Uyxr-zw-gxoqcmae bilateral paranasal sinus mucosal disease. Pt reports she had an [facility] and then a [facility] day hospital, in August as she was having new BLE L > R burning pain. She had started carbamazapine x's 1 month prior to this. While admitted, workup was notable for elevated LFTs. She was taken off the carbamazapine and atorvastatin, and her alk-phos and LFTs began to improve. Right upper quadrant ultrasound was unremarkable exception small right renal cyst. She was advised to reduce her Gabapentin, she is now taking it three times a day. Upon review of notes, it appears ropinirole was restarted upon discharge, as the burning discomfort was thought to be restless leg syndrome.. Since, the patient returned to [place] over the winter. She was able to establish care with a PCP in [place]. She states she is scheduled to undergo follow-up abdominal ultrasound. During this time, she was treated for a ? complicated UTI.. Since returning home, he is being followed by [facility]. She reports she started to have painful muscle cramp/spasm at onset of voiding, and at times cannot void. Thus, she is undergoing further evaluation. Recent labs at [place], show CBC and CMP within normal limits, normal B12, normal iron studies, ferritin 125, normal TSH She also recently saw [facility] vascular, who is ordering [facility] vascular studies for symptomatic varicose veins. She reports she continues to have BLE R > L burning pain. She reports her balance is worse and she is dragging her LLE, hears her left slipper shuffling when walking at home. She has a h/o Curtis TKR, and curtis lower patellar burning pain. Also a left forbes's cyst. She has intermittent whole underneath bottom pain/discomfort when sitting. The endorses bilateral posterior cervical neck tightness and tenderness. No acute changes to lower back pain. Denies BLE numbness. States she can the ground with walking. [facility] Surgical History (Updated 09/12/25 @ 11:00 by Kamilah Braden CMA) History of carpal tunnel surgery H/O rotator cuff surgery History of knee replacement procedure of right knee History of knee replacement procedure of left knee Family History Father Diabetes Myocardial infarction Brother Diabetes Myocardial infarction Mother Myocardial infarction Brother Myocardial infarction Sister Diabetes Dementia Social History Alcohol intake: current Alcohol intake frequency: holidays/special occasions only Patient Tobacco Use Status: Former Tobacco user Physical Exam Vital Signs: Last Vital Signs BP 120/74 09/12/25 10:52 BMI result Body Mass Index 27.6 Const General: cooperative and no acute distress Orientation/consciousness: patient oriented x3 HEENT Head: Yes normocephalic Resp Effort & Inspection: normal respiratory effort and able to speak in complete sentences Neuro Other: Muscle strength hip flexor and knee extension MS: 5-/5 Stands easier today, steady gait. General: patient oriented x3 and CN's II-XI intact bilaterally Cognition (Neuro): normal cognition Psych Appearance: grossly normal Mental Status: mental status grossly normal Speech and movement: Normal speech and movement present Affect: normal affect Attitude: cooperative Thought process: Normal thought process present Results Reviewed Results Reviewed: 03/23/2025 (at [facility]), Right upper quadrant ultrasound. ?HISTORY: abnormal LFT. COMPARISON: 03/18/2016. TECHNIQUE: Grayscale, color Doppler, and spectral Doppler ultrasound evaluation of the right upper quadrant of the abdomen. FINDINGS: LIVER: Normal echotexture. No focal lesion. Normal flow in the main portal vein. BILIARY: Normal caliber biliary tree for age. Mild nodularity and associated artifact along the gallbladder wall suggestive of adenomyomatosis. Negative sonographic Pereira sign. ?PANCREAS: Visualized portions are normal. ?RIGHT KIDNEY: Normal size and echotexture. No hydronephrosis. 16 mm upper pole cortical cyst. ?IMPRESSION: No acute findings. 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 03/10/2025, upper GI endoscopy: Findings: ?atypical, with almost a pseudomembrane, esophagitis with no bleeding was found 37-40 cm from the incisors.) Biopsies were taken. Exam was otherwise without abnormality. 03/10/24 [facility] Unknown WBC 5.7 RBC 3.82 L Hgb 12.6 Hct 37.4 MCV 97.9 MCH 33.0 MCHC 33.7 RDW 13.5 Plt Count 267 Sodium 140 Potassium 4.0 Chloride 105 Carbon Dioxide 26 Anion Gap 13 BUN 16 Creatinine 1.03 Estimated GFR 52 Random Glucose 114 Calcium 9.5 Total Bilirubin 0.3 AST 37 H ALT 36 H Alkaline Phosphatase 68 Total Protein 6.8 Albumin 4.2 03/08/24, RUE EMG/NCS: IMPRESSION: ?Abnormal study. -There is nerve conduction study evidence of a goxy-bv-alwakxci right median mononeuropathy at the wrist (consistent with a clinical diagnosis of carpal tunnel syndrome), including focal sensory fiber demyelination and sensory greater than motor axon loss. ?There is EMG evidence of acute and chronic denervation affecting the right abductor pollicis brevis muscle. -No nerve conduction study evidence of a right ulnar neuropathy at the wrist or elbow (cubital tunnel syndrome) or superficial radial neuropathy. -No nerve conduction study evidence of a large-fiber sensorimotor polyneuropathy affecting the right upper extremity. -No EMG evidence of a right brachial plexopathy or right C6-T1 radiculopathies. Assessment & Plan Assessment & Plan (1) Cramp and spasm: Comment: anti-RAY AB- normal Code(s): R25.2 - Cramp and spasm Category: Medical (2) Paresthesia: Code(s): R20.2 - Paresthesia of skin Category: Medical (3) Cervicalgia: Code(s): M54.2 - Cervicalgia Category: Medical (4) Peripheral neuropathy: Code(s): G62.9 - Polyneuropathy, unspecified Category: Medical Qualifiers: Peripheral neuropathy type: polyneuropathy, other Qualified Code(s): G62.89 - Other specified polyneuropathies (5) Restless leg syndrome: Code(s): G25.81 - Restless legs syndrome Category: Medical Plan Previous brain MRI, mi white matter changes consistent with chronic micro vascular ischemic changes. Previous request for C-spine and L-spine MRI were denied by her insurance, however gait has improved today.. For cramps/spasms- Reviewed interval baby and BLE EMG/NCS, which showed diffuse sensory motor axonal polyneuropathy. Discussed the EMG/NCS clinical impression, which raised possible concern for ALS. Patient did does not currently have any oral or swallowing difficulties. She endorses strong family history of muscle cramps, however denies any family history of ALS or significant progressive weakness. She adamantly declines a follow-up muscle biopsy at this time. 2021 anti-RAY 65 AB- < 5, negative. Check updated labs for common under lying etiologies Continue Gabapentin 300mg 2 times a day We will request a neuromuscular consult at both [facility] and [facility] in [place]. Follow-up with vascular as scheduled. Discussed having her establish care with a vascular in [place] as she will be down there through March, however she is hesitant to do this. Previous trials: Trihexyphenidyl not tolerated. Phenytoin ineffective. Carbamazepine ER 100 mg b.i.d.-not tolerated, possibly exacerbated LFTs though this may have been multifactorial, including alcohol intake. Baclofen was not effective Future considerations- Diazepam, pregabalin, horizant, nervive/alpha lipoic acid, dopaminergic therapy. ? For RLS: Continue Ropinirole 1 mg as needed. Will follow-up upon review of above and patient to follow-up in clinic in 6 months (or after patient returned from [place] in March of 2026) or sooner prn. Orders: Orders Complete Blood Count Auto Diff Today D64.9 - Anemia, unspecified, G62.9 - Polyneuropathy, unspecified, R25.2 - Cramp and spasm Creatine Kinase Total Today D64.9 - Anemia, unspecified, G62.9 - Polyneuropathy, unspecified, R25.2 - Cramp and spasm Ferritin Today D64.9 - Anemia, unspecified, G62.9 - Polyneuropathy, unspecified, R25.2 - Cramp and spasm IRON PROFILE Today D64.9 - Anemia, unspecified, G62.9 - Polyneuropathy, unspecified, R25.2 - Cramp and spasm Magnesium Today D64.9 - Anemia, unspecified, G62.9 - Polyneuropathy, unspecified, R25.2 - Cramp and spasm ANCA Vasculitides Today D64.9 - Anemia, unspecified, G62.9 - Polyneuropathy, unspecified, R25.2 - Cramp and spasm Anti-Centromere B Antibodies Today D64.9 - Anemia, unspecified, G62.9 - Polyneuropathy, unspecified, R25.2 - Cramp and spasm Complement C3 Today D64.9 - Anemia, unspecified, G62.9 - Polyneuropathy, unspecified, R25.2 - Cramp and spasm Myoglobin,Serum Today D64.9 - Anemia, unspecified, G62.9 - Polyneuropathy, unspecified, R25.2 - Cramp and spasm Myositis Assess JO1 Ab Today D64.9 - Anemia, unspecified, G62.9 - Polyneuropathy, unspecified, R25.2 - Cramp and spasm Comprehensive Met. Panel Today D64.9 - Anemia, unspecified, G62.9 - Polyneuropathy, unspecified, R25.2 - Cramp and spasm RON Reflex Titer and Pattern Today D64.9 - Anemia, unspecified, G62.9 - Polyneuropathy, unspecified, R25.2 - Cramp and spasm Erythrocyte Sedimentation Rate Today D64.9 - Anemia, unspecified, G62.9 - Polyneuropathy, unspecified, R25.2 - Cramp and spasm Vitamin B12 and Folate Today D64.9 - Anemia, unspecified, G62.9 - Polyneuropathy, unspecified, R25.2 - Cramp and spasm Anti DNA DS Antibody Today D64.9 - Anemia, unspecified, G62.9 - Polyneuropathy, unspecified, R25.2 - Cramp and spasm Complement C4 Today D64.9 - Anemia, unspecified, G62.9 - Polyneuropathy, unspecified, R25.2 - Cramp and spasm Protein Electrophoresis, Serum Today D64.9 - Anemia, unspecified, G62.9 - Polyneuropathy, unspecified, R25.2 - Cramp and spasm Myoglobin, Quant. Random Urine Today D64.9 - Anemia, unspecified, G62.9 - Polyneuropathy, unspecified, R25.2 - Cramp and spasm Referrals Neuromuscular Medicine Referral G25.81 - Restless legs syndrome, G62.9 - Polyneuropathy, unspecified, R25.2 - Cramp and spasm Coding Level of Care Code Est Pt Level 4 (84310) Diagnoses Cramp and spasm R25.2 Paresthesia R20.2 Cervicalgia M54.2 Other polyneuropathy G62.89 Peripheral neuropathy type: polyneuropathy, other Restless leg syndrome G25.81
--- OUTSIDE RECORDS SUMMARY | 2025-09-12 13:18 | XMS_ITS | Data Portability ---
Author Organization [facility] [employer], [employer], [facility] Address [address] [place] [address] Care Team Providers Care Relay Motorman Name Role Phone CEM SUAZO Primary Care Provider CEM SUAZO Referring Provider Assessment No assessment recorded. Plan of Treatment Reminders Order Date Submit Date Provider Last Modified By Organization Details Last Modified Time Details Appointments None recorded. Lab iron + TIBC + ferritin, serum 2024 025 [facility], [address] [place], [address], 5 17:53:21 CK (creatine kinase), total, serum 2024 025 [facility], [address] [place], [address], 5 17:53:17 erythrocy te sedimenta tion rate by whit n method 2024 025 [facility], [address] [place], [address], 5 12:27:14 C-reactiv e protein, quantitat dana, serum or plasma 2024 025 [facility], [address] [place], [address], 5 18:17:05 homocyste ine, serum or plasma 2024 025 [facility], [address], [place], [address], 5 04:48:17 mma (methylma lonic acid), serum 2024 025 [facility], [address], [place], [address], 5 04:48:18 vitamin B12 + folate, serum or blood 2024 025 [facility], [address], [place], [address], 5 18:00:42 vitamin B6 (pyridoxi ne), plasma 2024 025 [facility], [address], [place], [address], 5 17:29:23 CBC 2024 025 [facility], [address], [place], [address], 5 18:18:46 CMP, serum or plasma 2024 025 [facility], [address], [place], [address], 5 17:53:18 TSH + free T4, serum 2024 025 [facility], [address], [place], [address], 5 18:00:43 urinalysi s, dipstick 2023 024 [email or web address] In-Office Order, Internal Use Only DO Not Attach Compendium DO Not Attach Compendium, Do Not Delete/merge, [id number] 4 15:13:11 urinalysi s, dipstick 2023 024 [email or web address] In-Office Order, Internal Use Only DO Not Attach Compendium DO Not Attach Compendium, Do Not Delete/merge, [id number] 09:26:27 culture, urine 2023 024 [facility], [address], [place], [address], 4 08:55:40 urinalysi s, dipstick 2023 024 [email or web address] In-Office Order, Internal Use Only DO Not Attach Compendium DO Not Attach Compendium, Do Not Delete/merge, [id number] 4 10:11:59 culture, urine 2023 024 [facility], [address], [place], [address], 4 19:46:11 Referral urogyneco logist referral - Recurrent dysuria 2024 025 [facility], [address], [place], [address], 5 16:09:54 urologist referral - Continued bladder pain despite [address] showed questiona ble inflammat ion in colon, completed abx with no change. 2023 024 [email or web address] Maycol Bernal DO, [address], [place], [address], 4 16:18:58 orthopedi c surgeon referral 2023 024 mely Solorzano MD ([facility]), [address], [place], [address], 4 11:15:14 Procedures None recorded. Surgeries None recorded. Imaging CT, abdomen + pelvis, w/o contrast 2023 024 [facility], [facility], All Locations, [place], [address], 4 11:59:30 XR, hand, 3 or more view 2023 024 [facility], [facility], All Locations, [place], [address], 4 17:15:38 XR, wrist 2023 024 [email or web address] [facility], [facility], All Locations, [place], [address], 4 08:20:49 Medication Orders nitrofura ntoin monohydra te/macroc rystals 100 mg capsule 2023 025 HARNED [id number], [address], [place], [address], 5 14:02:07 Patient TargetsNo targets recorded. Patient Instructions Encounter Date Encounter Id Patient Instructions Last Modified By Organization Details Last Modified Time 09/30/2024 [id number] Patient understa nds instructions and will seek medical attention if symptoms worsen as directed. [email or web address] Not available 09/30/2024 10:19:50 10/17/2024 [id number] Patient understa nds instructions and will seek medical attention if symptoms worsen as directed. [email or web address] Not available 10/17/2024 09:35:48 11/01/2024 [id number] We discussed you r recurrent urinary symptoms [...] physician. [email or web address] Not available 11/01/2024 15:04:21 11/11/2024 [id number] gastroesophageal reflux disease (GERD): care instructions [email or web address] Not available 11/11/2024 14:54:02 Reason for Referral Orthopedic Surgeon Referral for Pain of right wrist Referring Physician: Esau Martin, [facility], Encounter Date: 12/31/2023 Urologist Referral for Cysti tis Continued bladder pain despite [address] showed questionable inflammation in colon, completed abx with no change. Referring Physician: Mary Hartley, [facility], Encounter Date: 11/01/2024 Urogynecologist Referral [...] URINE , ROUTI NE Micro Numbe r: [id number] Test Statu s: Final Speci men [...] lexin and lorac arbef . Not Available [facility] [address] [place] [address] [address] [facility], [place], [address], 10/02/2024 19:46:11 09/30/20 24 09/30/2024 urina lysis , dipst ick leukocytes small negati ve Not Available In-Office Order Internal Use Only DO Not Attach Compendium DO Not Attach Compendium, Do Not Delete/merge, [id number] 09/30/2024 09:50:28 09/30/20 24 09/30/2024 urina lysis , dipst ick nitrite negati ve negati ve Not Available In-Office Order Internal Use Only DO Not Attach Compendium DO Not Attach Compendium, Do Not Delete/merge, [id number] 09/30/2024 09:50:28 09/30/20 24 09/30/2024 urina lysis , dipst ick urobilinogen 0.2 E.U./ dL 0.2 Not Available In-Office Order Internal Use Only DO Not Attach Compendium DO Not Attach Compendium, Do Not Delete/merge, [id number] 09/30/2024 09:50:28 09/30/20 24 09/30/2024 urina lysis , dipst ick protein negati ve mg/dL negati ve Not Available In-Office Order Internal Use Only DO Not Attach Compendium DO Not Attach Compendium, Do Not Delete/merge, [id number] 09/30/2024 09:50:28 09/30/20 24 09/30/2024 urina lysis , dipst ick pH 7.0 5.0-7. 0 Not Available In-Office Order Internal Use Only DO Not Attach Compendium DO Not Attach Compendium, Do Not Delete/merge, [facility] 09/30/2024 09:50:28 09/30/20 24 09/30/2024 urina lysis , dipst ick blood negati ve negati ve Not Available In-Office Order Internal Use Only DO Not Attach Compendium DO Not Attach Compendium, Do Not Delete/merge, [facility] 09/30/2024 09:50:28 09/30/20 24 09/30/2024 urina lysis , dipst ick specific gravity 1.020 1.020- 1.035 Not Available In-Office Order Internal Use Only DO Not Attach Compendium DO Not Attach Compendium, Do Not Delete/merge, [id number] 09/30/2024 09:50:28 09/30/20 24 09/30/2024 urina lysis [...] DO Not Attach Compendium, Do Not Delete/merge, [id number] 09/30/2024 09:50:28 09/30/20 24 09/30/2024 urina lysis , dipst ick glucose negati ve mg/dL negati ve Not Available In-Office Order Internal Use Only DO Not Attach Compendium DO Not Attach Compendium, Do Not Delete/merge, [id number] 09/30/2024 09:50:28 10/17/20 24 10/20/2024 CULTU RE, URINE , ROUTI NE culture, urine, routine SEE NOTE CULTU RE, URINE , ROUTI NE Micro Numbe r: [id number] Test Statu s: Final Speci men Sourc e: Urine Speci men Quali ty: Adequ ate Resul t: No Growt h Not Available [facility] [address] [place] [address] [address], [place], [address], 10/20/2024 08:55:40 10/17/20 24 10/17/2024 urina lysis , dipst ick leukocytes TRACE negati ve Not Available In-Office Order Internal Use Only DO Not Attach Compendium DO Not Attach Compendium, Do Not Delete/merge, [id number] 10/17/2024 08:55:57 10/17/2010/17/2024 urina lysis , dipst ick nitrite NEGATI VE negati ve Not Available In-Office Order Internal Use Only DO Not Attach Compendium DO Not Attach Compendium, Do Not Delete/merge, [id number] 10/17/2024 08:55:57 10/17/20 24 10/17/2024 urina lysis , dipst ick urobilinogen 0.2 E.U./ dL 0.2 Not Available In-Office Order Internal Use Only DO Not Attach Compendium DO Not Attach Compendium, Do Not Delete/merge, [id number] 10/17/2024 08:55:57 10/17/20 24 10/17/2024 urina lysis , dipst ick protein NEGATI VE mg/dL negati ve Not Available In-Office Order Internal Use Only DO Not Attach Compendium DO Not Attach Compendium, Do Not Delete/merge, [id number] 10/17/2024 08:55:57 10/17/20 24 10/17/2024 urina lysis , dipst ick pH 5.5 5.0-7. 0 Not Available In-Office Order Internal Use Only DO Not Attach Compendium DO Not Attach Compendium, Do Not Delete/merge, [id number] 10/17/2024 08:55:57 10/17/20 24 10/17/2024 urina lysis , dipst ick blood NEGATI VE negati ve Not Available In-Office Order Internal Use Only DO Not Attach Compendium DO Not Attach Compendium, Do Not Delete/merge, [facility] 10/17/2024 08:55:57 10/17/20 24 10/17/2024 urina lysis , dipst ick specific gravity 1.020 1.020- 1.035 Not Available In-Office Order Internal Use Only DO Not Attach Compendium DO Not Attach Compendium, Do Not Delete/merge, [facility] 10/17/2024 08:55:57 10/17/20 24 10/17/2024 urina lysis , dipst ick ketone NEGATI VE mg/dL negati ve Not Available In-Office Order Internal Use Only DO Not Attach Compendium DO Not Attach Compendium, Do Not Delete/merge, [facility] 10/17/2024 08:55:57 10/17/20 24 10/17/2024 urina lysis , dipst ick bilirubin NEGATI VE negati ve Not Available In-Office Order Internal Use Only DO Not Attach Compendium DO Not Attach Compendium, Do Not Delete/merge, [facility] 10/17/2024 08:55:57 10/17/20 24 10/17/2024 urina lysis , dipst ick glucose NEGATI VE mg/dL negati ve Not Available In-Office Order Internal Use Only DO Not Attach Compendium DO Not Attach Compendium, Do Not Delete/merge, [facility] 10/17/2024 08:55:57 11/01/20 24 11/01/2024 urina lysis , dipst ick leukocytes negati ve negati ve Not Available In-Office Order Internal Use Only DO Not Attach Compendium DO Not Attach Compendium, Do Not Delete/merge, [facility] 11/01/2024 14:25:19 11/01/20 24 11/01/2024 urina lysis , dipst ick nitrite negati ve negati ve Not Available In-Office Order Internal Use Only DO Not Attach Compendium DO Not Attach Compendium, Do Not Delete/merge, [id number] 11/01/2024 14:25:19 11/01/20 24 11/01/2024 urina lysis , dipst ick urobilinogen 0.2 E.U./ dL 0.2 Not Available In-Office Order Internal Use Only DO Not Attach Compendium DO Not Attach Compendium, Do Not Delete/merge, [facility] 11/01/2024 14:25:19 11/01/20 24 11/01/2024 urina lysis , dipst ick protein negati ve mg/dL negati ve Not Available In-Office Order Internal Use Only DO Not Attach Compendium DO Not Attach Compendium, Do Not Delete/merge, [id number] 11/01/2024 14:25:11/01/20 24 11/01/2024 urina lysis , dipst ick pH 7.5 5.0-7. 0 Not Available In-Office Order Internal Use Only DO Not Attach Compendium DO Not Attach Compendium, Do Not Delete/merge, [facility] 11/01/2024 14:25:11/01/20 24 11/01/2024 urina lysis , dipst ick blood negati ve negati ve Not Available In-Office Order Internal Use Only DO Not Attach Compendium DO Not Attach Compendium, Do Not Delete/merge, [id number] 11/01/2024 14:25:11/01/20 24 11/01/2024 urina lysis , dipst ick specific gravity 1.020 1.020- 1.035 Not Available In-Office Order Internal Use Only DO Not Attach Compendium DO Not Attach Compendium, Do Not Delete/merge, [id number] 11/01/2024 14:25:11/01/20 24 11/01/2024 urina lysis , dipst ick ketone negati ve mg/dL negati ve Not Available In-Office Order Internal Use Only DO Not Attach Compendium DO Not Attach Compendium, Do Not Delete/merge, [id number] 11/01/2024 14:25:19 11/01/20 24 11/01/2024 urina lysis , dipst ick bilirubin negati ve negati ve Not Available In-Office Order Internal Use Only DO Not Attach Compendium DO Not Attach Compendium, Do Not Delete/merge, [id number] 11/01/2024 14:25:19 11/01/20 24 11/01/2024 urina lysis , dipst ick glucose negati ve mg/dL negati ve Not Available In-Office Order Internal Use Only DO Not Attach Compendium DO Not Attach Compendium, Do Not Delete/merge, [id number] 11/01/2024 14:25:19 11/24/19 25 11/24/2024 CK creatine kinase 389 U/L 30 - 223 high Not Available [facility] [address] [facility] [address] [place], [address], 11/24/2024 17:53:17 11/24/19 25 11/24/2024 CMP, COMPR EHENS DANA METAB OLIC PANEL glucose 108 mg/dL 70 - 100 high Not Available [facility] [address] [facility] [address], [place], [address], 11/24/2024 17:53:18 11/24/19 25 11/24/2024 CMP, COMPR EHENS DANA METAB OLIC PANEL BUN 19 mg/dL 7 - 25 Not Available [facility] [address] [facility] [address] [place], [address], 11/24/2024 17:53:18 11/24/19 25 11/24/2024 CMP, COMPR EHENS DANA METAB OLIC PANEL creatinine 0.9 mg/dL 0.6 - 1.3 Not Available [facility] [address] [facility] [address] [place], [address], 11/24/2024 17:53:18 11/24/19 25 11/24/2024 CMP, COMPR EHENS DANA METAB OLIC PANEL BUN/creatini ne ratio 21 calc 10 - 25 Not Available [facility] [address], [place], [address], 11/24/2024 17:53:18 11/24/19 25 11/24/2024 CMP, COMPR [...] [facility] [address], [place], [address], 11/24/2024 17:53:18 11/24/19 25 11/24/2024 CMP, COMPR EHENS DANA METAB OLIC PANEL sodium 144 mmol/ L 135 - 145 Not Available [facility] [address], [place], [address], 11/24/2024 17:53:18 11/24/19 25 11/24/2024 CMP, COMPR EHENS DANA METAB OLIC PANEL potassium 5.1 mmol/ L 3.5 - 5.5 Not Available [facility] [address], [place], [address], 11/24/2024 17:53:18 11/24/19 25 11/24/2024 CMP, COMPR EHENS DANA METAB OLIC PANEL chloride 107 mmol/ L 100 - 115 Not Available [facility] [address], [place], [address], 11/24/2024 17:53:18 11/24/19 25 11/24/2024 CMP, COMPR EHENS DANA METAB OLIC PANEL CO2 29 mmol/ L 21 - 33 Not Available [facility] [address], [place], [address], 11/24/2024 17:53:18 11/24/19 25 11/24/2024 CMP, COMPR EHENS DANA METAB OLIC PANEL calcium 9.6 mg/dL 8.8 - 10.6 Not Available [facility] [address], [place], [address], 11/24/2024 17:53:18 11/24/1911/24/2024 CMP, COMPR EHENS DANA METAB OLIC PANEL total protein 6.7 g/dL 6.2 - 8.6 Not Available [facility] [address], [place], [address], 11/24/2024 17:53:18 11/24/19 25 11/24/2024 CMP, COMPR EHENS DANA METAB OLIC PANEL globulin 2.6 g/dL 1.3 - 4.0 Not Available [facility] [address] [facility] [address], [place], [address], 11/24/2024 17:53:18 11/24/19 25 11/24/2024 CMP, COMPR EHENS DANA METAB OLIC PANEL albumin 4.1 g/dL 3.5 - 5.7 Not Available [facility] [address] [facility] [address], [place], [address], 11/24/2024 17:53:18 11/24/1911/24/2024 CMP, COMPR EHENS DANA METAB OLIC PANEL A/G ratio 1.6 calc 1.0 - 2.8 Not Available [facility] [address], [place], [address], 11/24/2024 17:53:18 11/24/19 25 11/24/2024 CMP, COMPR EHENS DANA METAB OLIC PANEL AST (SGOT) 33 U/L 13 - 39 Not Available [facility] [address], [place], [address], 11/24/2024 17:53:18 11/24/19 25 11/24/2024 CMP, COMPR EHENS DANA METAB OLIC PANEL ALT (SGPT) 28 U/L 7 - 52 Not Available [facility] [address], [place], [address], 11/24/2024 17:53:18 11/24/19 25 11/24/2024 CMP, COMPR EHENS DANA METAB OLIC PANEL alkaline phosphatase 67 U/L 20 - 128 Not Available [facility] [address], [place], [address], 11/24/2024 17:53:18 11/24/19 25 11/24/2024 CMP, COMPR EHENS DANA METAB OLIC PANEL total bilirubin 0.3 mg/dL 0.3 - 1.0 Not Available [facility] [address], [place], [address], 11/24/2024 17:53:18 11/24/19 25 11/24/2024 IRON, TIBC & MATTHEW TIN PANEL serum iron 92 ug/dL 45 - 210 Not Available [facility] [address] [facility] [address], [place], [address], 11/24/2024 17:53:21 11/24/19 25 11/24/2024 IRON, TIBC & MATTHEW TIN PANEL iron binding capacity 365 ug/dL 250 - 450 Not Available [facility] [address], [place], [address], 11/24/2024 17:53:21 11/24/19 25 11/24/2024 IRON, TIBC & MATTHEW TIN PANEL unsaturated iron binding capacity 273 ug/dL Not Available [facility] [address], [place], [address], 11/24/2024 17:53:21 11/24/19 25 11/24/2024 IRON, TIBC & MATTHEW TIN PANEL % iron saturation 25 % 13 - 45 Not Available [facility] [address] [facility] [address], [place], [address], 11/24/2024 17:53:21 11/24/19 25 11/24/2024 IRON, TIBC & MATTHEW TIN PANEL ferritin 287 NG/mL 10 - 158 high Not Available [facility] [address] [facility] [address], [place], [address], 11/24/2024 17:53:21 11/24/19 25 11/24/2024 VITAM IN B12 & FOLAT E vitamin B-12 757 pg/mL 232 - 1245 Not Available [facility] [address] [facility] [address], [place], [address], 11/24/2024 18:00:42 11/24/1911/24/2024 VITAM IN B12 & FOLAT E folate 9.09 NG/mL >3.10 A serum Folat e cammie ntrat ion of < 3.1 ng/ml is consi dered to repre sent clini nikunj defic iency . Not Available [facility] [address] [facility] [address] [place], [address], 11/24/2024 18:00:42 11/24/1911/24/2024 TSH+F REE T4 free T4 1.200 NG/dL 0.930 - 1.770 Not Available [facility] [address] [facility] [address], [place], [address], 11/24/2024 18:00:43 11/24/19 25 11/24/2024 TSH+F REE T4 TSH 1.9800 uIU/m L 0.2700 - 4.2000 Not Available [facility] [address], [place], [address], 11/24/2024 18:00:43 11/24/1911/24/2024 CRP, C-ADONIS CTIVE PROTE IN CRP <5.0 mg/L <8.0 Not Available [facility] [address], [place], [address], 11/24/2024 18:17:05 11/24/1911/24/2024 CBC W/ AUTOD IFF, COMPL ETE BLOOD COUNT WBC 4.4 K/uL 3.6 - 10.0 Not Available [facility] [address], [place], [address], 11/24/2024 18:18:46 11/24/19 25 11/24/2024 CBC W/ AUTOD IFF, COMPL ETE BLOOD COUNT RBC 4.0 M/uL 3.9 - 5.0 Not Available [facility] [address], [place], [address], 11/24/2024 18:18:46 11/24/19 25 11/24/2024 CBC W/ AUTOD IFF, COMPL ETE BLOOD COUNT hemoglobin 13.2 g/dL 12.0 - 15.0 Not Available [facility] [address], [place], [address], 11/24/2024 18:18:46 11/24/19 25 11/24/2024 CBC W/ AUTOD IFF, COMPL ETE BLOOD COUNT hematocrit 38.8 % 35.0 - 45.0 Not Available [facility] [address], [place], [address], 11/24/2024 18:18:46 11/24/19 25 11/24/2024 CBC W/ AUTOD IFF, COMPL ETE BLOOD COUNT MCV 96.1 fL 80.0 - 99.0 Not Available [facility], [place], [address], 11/24/2024 18:18:46 11/24/19 25 11/24/2024 CBC W/ AUTOD IFF, COMPL ETE BLOOD COUNT MCH 32.7 pg 27.0 - 33.0 Not Available [facility], [place], [address], 11/24/2024 18:18:46 11/24/19 25 11/24/2024 CBC W/ AUTOD IFF, COMPL ETE BLOOD COUNT MCHC 34.0 g/dL 32.0 - 36.0 Not Available [facility], [place], [address], 11/24/2024 18:18:46 11/24/19 25 11/24/2024 CBC W/ AUTOD IFF, COMPL ETE BLOOD COUNT RDW 13.9 % 11.0 - 15.0 Not Available [facility], [place], [address], 11/24/2024 18:18:46 11/24/19 25 11/24/2024 CBC W/ AUTOD IFF, COMPL ETE BLOOD COUNT nucleated RBC 0 % 0 - 2 Not Available [facility], [place], [address], 11/24/2024 18:18:46 11/24/19 25 11/24/2024 CBC W/ AUTOD IFF, COMPL ETE BLOOD COUNT platelet 263 K/uL 140 - 440 Not Available [facility], [place], [address], 11/24/2024 18:18:46 11/24/19 25 11/24/2024 CBC W/ AUTOD IFF, COMPL ETE BLOOD COUNT MPV 7.6 fL 7.4 - 10.4 Not Available [facility] [address], [place], [address], 11/24/2024 18:18:46 11/24/19 25 11/24/2024 CBC W/ AUTOD IFF, COMPL ETE BLOOD COUNT neutrophil, percentage 43.4 % Not Available [facility] [address], [place], [address], 11/24/2024 18:18:46 11/24/19 25 11/24/2024 CBC W/ AUTOD IFF, COMPL ETE BLOOD COUNT lymphocyte, percentage 43.4 % Not Available [facility] [address], [place], [address], 11/24/2024 18:18:46 11/24/19 25 11/24/2024 CBC W/ AUTOD IFF, COMPL ETE BLOOD COUNT monocyte, percentage 8.2 % Not Available [facility] [address], [place], [address], 11/24/2024 18:18:46 11/24/19 25 11/24/2024 CBC W/ AUTOD IFF, COMPL ETE BLOOD COUNT eosinophil, percentage 4.5 % Not Available [facility] [address] [place], [place] [address]y [address], [place], [address], 11/24/2024 18:18:46 11/24/19 25 11/24/2024 CBC W/ AUTOD IFF, COMPL ETE BLOOD COUNT basophil, percentage 0.5 % Not Available [facility] [address], [place], [address], 11/24/2024 18:18:46 11/24/19 25 11/24/2024 CBC W/ AUTOD IFF, COMPL ETE BLOOD COUNT neutrophil, absolute 1.9 K/uL 1.5 - 7.5 Not Available [facility] [address], [place], [address], 11/24/2024 18:18:46 11/24/19 25 11/24/2024 CBC W/ AUTOD IFF, COMPL ETE BLOOD COUNT lymphocyte, absolute 1.9 K/uL 0.8 - 4.0 Not Available [facility] [address] [facility] [address], [place], [address], 11/24/2024 18:18:46 11/24/19 25 11/24/2024 CBC W/ AUTOD IFF, COMPL ETE BLOOD COUNT monocyte, absolute 0.4 K/uL 0.1 - 1.0 Not Available [facility] [address] [place], [place] [address] [address], [place], [address], 11/24/2024 18:18:46 11/24/19 25 11/24/2024 CBC W/ AUTOD IFF, COMPL ETE BLOOD COUNT eosinophil, absolute 0.2 K/uL 0.1 - 1.0 Not Available [facility] [address] [place], [place] [address] [address], [place], [address], 11/24/2024 18:18:46 11/24/19 25 11/24/2024 CBC W/ AUTOD IFF, COMPL ETE BLOOD COUNT basophil, absolute 0.0 K/uL 0.0 - 0.2 Not Available [facility] [address] [place], [place] [address] [address], [place], [address], 11/24/2024 18:18:46 11/24/1911/25/2024 SED RATE, WESTE TIERNEYREN sed rate by modified westclarkren 29 mm/h < or = 30 normal Not Available [facility] [address] [place], [place] [address] [address], [place], [address], 11/25/2024 12:27:14 11/24/19 25 11/28/2024 HOMOC YSTEI [...] Med. 1999; 131(5 ):331 -9. Not Available [facility] [address] [place], [place] [id number] [address], [place], [address], 11/28/2024 04:48:17 11/24/19 25 11/28/2024 MMA, METHY [...] for clini nikunj purpo ses. Not Available [facility] [address], [place], [address], 11/28/2024 04:48:18 11/24/19 25 11/30/2024 VITAM IN B6 vitamin B6, plasma 12.3 NG/mL 2.1-21 .7 Vitam in suppl ement ation withi n 24 hours prior to blood draw may affec t the accur acy of the resul ts. This test was devel oped and its lady tical perfo rmanc e ravinder cteri stics have been deter mined by [facility] Dinesh lopez [place], [place]. It has not been clear ed or appro caryn by the U.S. Food and Drug Admin istra tion. This assay has been valid ated pursu ant to the CLIA regul ation s and is used for clini nikunj purpo ses. Not Available [facility] [address], [place], [address], 11/30/2024 17:29:23 11/24/19 25 11/24/2024 VENIP UNCTU RE results Compl ete Not Available [facility] [address], [place], [address], 11/24/2024 12:43:02 12/31/19 24 12/31/2023 XR, hand, [...] Sylvester raines D.O., Paul Sign Date: [id number] [facility] All Locations, [place], [address], 10/01/2024 19:46:29 12/31/19 24 12/31/2023 wrist 4V [...] By: Sylvester raines D.O., Paul Sign Date: [id number] [facility] All Locations, [place], [address], 10/01/2024 19:46:34 10/18/2010/18/2024 CT, abdom en + [...] Board Certif ied Radiol ogist Sign Date: [id number] [facility] All Locations, [place], [address], 10/18/2024 12:37:16 Result Notes Documentation Provider Name [...] Dickson Paul Sign Date: 31-DEC-23 Not Available [facility] 10/01/2024 20:04:22 Ct, Abdomen + Pelvis, W/o [...] Certified Radiologist Sign Date: 18-OCT-24 SHEKHAR ARITA [address], [place], [address], [facility] - [facility] 10/18/2024 12:37:16 Problems Name Problem SNOMED Code Status Onset Date Resolution Date Notes Provider Name and Address Organization Details Recorded Time Chronic obstructive pulmonary disease 40257374 Active 2020 ELIZABETH AYALA APRN [address], [place], [address], [facility], [facility] 15:17:28 Essential hypertension 89068719 Active 2024 ELIZABETH AYALA APRN [address], [place], [address], [facility], [facility] 15:17:38 Allergic rhinitis 37358987 Active 2024 ELIZABETH AYALA APRN [address], [place], [address], [facility] Physician [facility], [facility] 15:17:25 Osteoarthritis 205514348 Active 2024 ELIZABETH AYALA APRN [address], [place], [address], [facility] Physician [facility], [facility] 15:17:42 Gastroesophage al reflux disease 730648299 Active 2024 ELIZABETH AYALA APRN [address], [place], [address], [facility] Physician [facility], [facility] 15:17:40 Cramp in lower limb 277707891 Active 2024 ELIZABETH AYALA APRN [address], [place], [address], [facility] Physician [facility], [facility] 15:17:32 Diverticulosis of large intestine 436671542 Active 2024 ELIZABETH AYALA APRN [address], [place], [address], [facility] Physician [facility], [facility] 15:17:34 Solitary nodule of lung 208899690 Active 2024 ELIZABETH AYALA APRN [address], [place], [address], [place] [facility], [facility] 5 15:17:51 Dyspnea 505381451 Active 2024 ELIZABETHShaina AYALA, CHOIR SINGER [address], [place], [address], [facility], [facility] 5 15:17:36 Recurrent urinary tract infection 132112426 Active 2024 ELIZABETH LUCY, CHOIR SINGER [address], [place], [address], [facility], [facility] 5 15:17:53 Problem Notes None recorded. Procedures Surgical History Date Name Laterality Status Provider Name and Address Organization Details Recorded Time 4 release of trigger finger of right hand completed [facility] 11/11/2024 14:05:45 2 total replacement of left knee joint completed [facility] 11/11/2024 14:06:10 1 Date of Last Mammogram completed Sybil Cannon [facility] 12/31/2023 15:37:44 0 colonoscopy completed [facility] 11/11/2024 14:04:41 7 total replacement of right knee joint completed [facility] 11/11/2024 14:06:20 Carpal tunnel surgery completed Vanessa [facility] 11/11/2024 14:05:02 procedure on shoulder completed [facility] 11/11/2024 14:07:07 Imaging Results None recorded. Procedure [...] Available Not Available Not Available Sinus Nasal Bryson 0.05 % TAKE 2 SPRAYS (INTRANAS AL) [...] Updated DateTime 5 167.64 cm 26.8 kg/m2 73114.3 3 g 97.7 [degF] 69 /min 16 /min 98 % 98 % 0 116/70 mm[Hg] Vanessa Perez [facility] Physician [facility], [facility] 5 14:09:23 Date Recorded Body weight Body mass index (BMI) Body height Body temperature Heart rate Oxygen saturation Oxygen saturation in Arterial blood by Pulse oximetry Systolic And Diastolic Provider Name and Address Organization Details Last Updated DateTime 4 68723.8 9 g 27.8 kg/m2 167.64 cm 97.9 [degF] 76 /min 93 % 93 % 122/76 mm[Hg] Sybil Cannon [facility] Physician [facility], [facility] 4 15:42:33 Date Recorded Body mass index (BMI) Body weight Provider Name and Address Organization Details Last Updated DateTime 09/30/2024 27.9 kg/m2 50805.48 g Lilo Abraham [facility], [facility] 09/30/2024 09:45:51 Date Recorded Body height Body temperature Heart rate Oxygen saturation Oxygen saturation in Arterial blood by Pulse oximetry Systolic And Diastolic Provider Name and Address Organization Details Last Updated DateTime 4 167.64 cm 97.8 [degF] 90 /min 98 % 98 % 120/70 mm[Hg] Harshad Hernandez [facility], [facility] 4 09:49:58 Date Recorded Body height Body mass index (BMI) Body weight Body temperature Heart rate Respiratory rate Oxygen saturation Oxygen saturation in Arterial blood by Pulse oximetry Systolic And Diastolic Provider Name and Address Organization Details Last Updated DateTime 4 167.64 cm 27.2 kg/m2 04207.9 6 g 97.3 [degF] 74 /min 16 /min 98 % 98 % 122/84 mm[Hg] Sepideh Guzmán [facility], [facility] 4 09:05:49 Date Recorded Body height Body mass index (BMI) Body weight Body temperature Heart rate Oxygen saturation Oxygen saturation in Arterial blood by Pulse oximetry Systolic And Diastolic Provider Name and Address Organization Details Last Updated DateTime 4 167.64 cm 27.3 kg/m2 05175.1 1 g 97.8 [degF] 76 /min 98 % 98 % 122/82 mm[Hg] Harshad Hernandez [facility], [facility] 4 14:24:50 Social History Question Answer Notes LastModified by Organizat ion Details LastModified Time Tobacco Smoking Status Former Smoker Rashida bravo [facility], [facility] 12/28/2020 11:47:00 Do You Have An Advance Directive? Yes [email or web address] Information not available 12/28/2020 Is Your Home Air Conditioned? Yes Information not available 11/11/2024 What Is Your Level Of Caffeine Consumption? Moderate [email or web address] Information not available 12/28/2020 What Type Of Diet Are You Following? REGULAR [email or web address] Information not available 12/28/2020 Education 2 Year College [email or web address] Information not available 12/31/2023 When Did You Quit Smoking? 16+yearssinc elastcigaret te 20 Years Ago Information not available 11/11/2024 Where Do You Live? Condo Information not available 11/11/2024 Marital Status Informatio n not available 12/31/2023 What Is Your Relationship Status? [email or web address] Information not available 12/31/2023 Are You Sexually Active? No [email or web address] Information not available 12/28/2020 Are You Passively [...] is your level of alcohol consumption? Occasional [email or web address] Information not available 12/28/2020 Do you or have you ever used smokeless tobacco? Never used smokeless tobacco [email or web address] Information not available 12/28/2020 Are you currently employed? No Information not available 11/11/2024 Have you been exposed to chemicals or toxins? No Information not available 11/11/2024 What is your exercise level? Occasional Information not available 12/28/2020 Mental Status None recorded. Family History Relationship Description Onset Age of this Age Resolved Age Notes LastModified by Organization Details LastModified Time Mother Diabetes mellitus [email or web address] Not available 2020 11:46:37 Mother Congestive heart failure [email or web address] Not available 2020 11:46:37 Mother Heart disease [email or web address] Not available 2020 11:46:37 Father Congestive heart failure [email or web address] Not available 2020 11:46:37 Father Heart disease [email or web address] Not available 2020 11:46:37 Father Diabetes mellitus [email or web address] Not available 2020 11:46:37 Brother Congestive heart failure [email or web address] Not available 2020 11:46:37 Brother Diabetes mellitus [email or web address] Not available 2020 11:46:37 Brother Heart disease [email or web address] Not available 2020 11:46:37 Sister Diabetes mellitus [...] 50 mcg/0.25mL dose 02/14/2021 completed Shady bravo [facility] 01/16/2022 10:29:18 COVID-19, mRNA, LNP-S, PF, 100 mcg/0.5mL dose or 50 mcg/0.25mL dose 01/16/2021 completed Shady bravo [facility] 01/16/2022 10:29:18 Past Encounters Encounter ID Performer Location Encounter Start Date Encounter Closed Date Diagnosis/Indication Diagnosis SNOMED-CT Code Diagnosis ICD10 Code Diagnosis IMO Codes Diagnosis Note [id number] [facility] [address] [place] [address] 12/28/2020 11:18:34 12/28/2020 20:30:21 Localized swelling, mass and lump, lower limb 201174336 R22.42 advised patient to take Tylenol and or ibuprofen. If patient decides she would like an x-ray or MRI she may contact the office and we will submit an order to [facility]. 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 Patient is to contact her orthopedis t to see if anything further should be done. [id number] [facility] [address] [place] [address] 01/16/2022 09:37:54 01/16/2022 19:40:15 Chronic sinusitis 85957169 J32.9 Acute, symptomati c; initial visit. Based [...] Patient to F/U with her ENT in [facility]. next month for if no improvemen t in her symptoms may need CT of sinuses and scoping Congestion of nasal sinus 93119292 R09.81 Acute, symptomati c; initial visit. Recommende d antibiotic as prescribed , rest, adequate hydration, cool mist vaporizer at bedside and short course of Prednisone as above taken per package instructio ns. If develops fever, shortness of breath, pleurodyni a, chest tightness/ wheezing or chest pain to return through walk-in or if after hours nearest ED evaluation . [id number] MD KIERSTEN Cooper [facility] [address] [place] [address] 12/31/2023 15:24:57 12/31/2023 16:18:35 Pain of right wrist 2192667193 55712 M25.531 r/o carpal tunnelr/o djd/rheuma toidwill refer to orthotylen ol prn /voltaren oint prnxray Pain of right hand 01424 01778 24824 M79.641 as above [id number] MD KIERSTEN Jimenez [facility] [address] [place] [address] 09/30/2024 09:01:25 09/30/2024 11:26:30 Urinary symptoms 098262817 R39.9 Newly undiagnose d problem with uncertain [...] ED to rule out a pyelonephr itis. [id number] Gil Fabian MD [facility] [address] [place] [address] 10/17/2024 08:45:54 10/17/2024 18:57:05 Lower abdominal pain 60190004 R10.30 Newly undiagnose d problem with uncertain [...] hematuria to report to the nearest ED. [id number] Gil Fabian MD [facility] [address] [place] [address] 11/01/2024 14:00:51 11/01/2024 16:18:58 Cystitis 93960327 N30.90 - Patient has a history of [...] appointmen t with a primary care physician. [id number] ELIZABETH AYALA APRN [facility] P[facility] [address] [place] [address] 11/11/2024 13:43:08 11/14/2024 21:58:02 Essential hypertension 83462348 I10 Chronic, stableAt goal, 116/70 in officeCont inue amlodipine 5 mg PO daily Chronic ob structive pulmonary disease 60076725 J44.9 Chronic, stable without exacerbati onPatient reports symptoms of SOB and using albuterol frequently and Trelegy more than as prescribed Continue Trelegy 100-62.5-2 5 mcg 1 puff daily, adherence reinforced Continue albuterol 90 mcg/actuat ionRecomme nd she discuss breathing with pulmonolog ist Dr Mercado Allergic rhinitis 911420 04 J30.9 Chronic, stableSymp toms well controlled Continue avoidance of triggers Recurrent urinary tract infection 237633957 N39.0 Acute and recurrent1 pt had culture proven UTI with K pneumoniae patient had symptoms of UTI with normal culture- patient continues to have pain prior to and during urinationR eferral to Dr. Bernal Osteoarthritis 547269300 M19.90 Chronic, stableCont inue celebrex 200 mg PO dailyExerc ise daily Gastroesop hageal reflux disease 916409223 K21.9 Chronic, stableCont inue omeprazole 20 mg PO dailyConti nue dietary management Cramp in lower limb 4499 85351 R25.2 Chronic, stableCont inue ropinerole Continue neurontin 300 mg PO 1 in am and 2 at nightConti nue E62Ipsfa labs Diverticul osis of large intestine 269804442 K57.30 Chronic, stable, with recent exacerbati onContinue to monitor symptoms Solitary n odule of lung 903668433 R91.1 Chronic, stableCT chest was stableObta in recordsFol low with pulmonolog ist Dr. 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 Includes any NEW symptom(s) among those listed previously that are NOT due to another health problem No Have you tested positive for COVID-19 in the past 10 days? No In the last 10 days, have you been exposed to someone who has tested positive for COVID-19? No Imported from [facility] on 12/31/2023 Esau Martin MD [address], [place], [address], [employer] 12/31/2023 16:16:55 09/30/20 24 text/ht ml complaintReported by PatientHPIFor reason for visit, patient reportsacute complaint. For quality, patient reportsdysuria,urgency, andfrequency(luts). For severity, patient reportsworse. For onset/timing, patient reportsabruptanda few days ago. For alleviating factors, patient reportsnothing. For duration, patient reportsintermittentandmultiple times per day. For context, patient reportsno recent illness or injury. For aggravating factors, patient reportsnothing. For associated symptoms, patient reportsno fever,no discharge,no abdominal pain, andno rash. For genitourinary complaint, (luts).ROS as noted in the HPI SHEKHAR ARITA [address], [place], [address], [employer] [place] [employer] 09/30/2024 10:23:03 10/17/20 24 text/ht ml complaintReported by PatientHPIFor reason for visit, patient reportsfollow-up of acute complaint (previously evaluated/treated by this provider through [facility] on 09/30/2024 for luts. at that time her urine for culture and sensitivity grew out klebsiella pneumonia and her antibiotic was changed from macrobid to sulfa that she has completed. reports transient improvement of her lower urinary tract symptoms and now complains of intermittent lower abdominal pressure and therefore she seeks reevaluation. she denies any chills, fever, diarrhea, constipation or flank pain. also denies any rectal bleeding or melena).ROS as noted in the HPI SHEKHAR ARITA [address], [place], [address], [employer] 10/17/2024 15:27:33 11/01/20 24 text/ht ml ROS as noted in the HPI The patient is a 74-year-old female presenting [...] emesis, diarrhea, or vaginal discharge. SHEKHAR PURI [address], [place], [address], [employer] [place] [employer] 11/01/2024 15:14:04 11/11/19 25 text/ht ml ROS as noted in the HPI Patient reports since she has had burning [...] care of pulmonology, cardiology, neurology, and PCP [facility]. ELIZABETH AYALA, CHOIR SINGER [address], [place], [address], [facility] - [facility], [facility] 11/13/2024 15:18:13 OBGyn Episode No OBEpisode recorded.
--- OUTSIDE RECORDS SUMMARY | 2025-09-12 13:18 | XMS_ITS | Data Portability ---
Author Organization GREG Tenzin [facility], [facility] Address [address] [place] [address] Care Team Providers Care Bellows Assembler Name Role Phone [facility] Primary Care Provide r Assessment Encounter Date Assessment Date Assessment LastModified by Organization Details LastModified Time 06/07/2024 06/07/2024 I am seeing the patient today under the supervision of Dr. Stafford who was available but did not see the patient. HPI: The patient is a 74-year-old female presenting today for evaluation of left total knee arthroplasty pain. Procedure was performed [place] [address] Robles. I had evaluated her last year for this difficulty. She does continue to have the same type of pain over the anterior knee. She also has some medial calf and tibia pain. It does radiate to the ankle as well. She still has some numbness and hypersensitivity over the anterior aspect of the knee and into the proximal tibia as well. PMH/PSH/MEDS/ALL/F MH/SOC HX/ROS all reviewed in detail per my medical intake sheet. ROS: the patient denies fevers or chills Exam: Vitals signs as noted. Alert and oriented x3. Appears well and in no acute distress. Extremities: Incision is well-healed. Calves are soft and nontender. No evidence of DVT. No lower extremity edema. Neurovascular status at baseline. Left knee: Mild tenderness to palpation about the parapatellar region. Some tenderness at the pes anserine bursa. Range of motion is 0-120. Ligaments are stable to varus and valgus stresses. No significant effusion. Quad strength is 5/5. X-rays were ordered, obtained and reviewed NEOS. 3 views of the left knee demonstrate a total joint arthroplasty with good interfaces and alignment. No evidence of any lysis or loosening. No acute fractures appreciated. No change with previous radiographs. Assessment: The patient is approximately 3 years s/p TKA. Peripatellar irritability, pes anserine bursitis Plan: I explained the nature of the diagnosis with the patient and its treatment options both conservative and surgical. Conservative measures were discussed at length including but not limited to physical therapy, bracing, anti-inflammatorie s and injection therapies. Patient would like to try a pes anserine bursal injection. Please see procedure documentation for further information about the injection performed today. Will follow up as needed for further evaluation. The patient understands and agrees with the plan. They know to call if they have any further questions or concerns regarding their symptoms, or to follow up sooner if needed. [email or web address] Not available 06/07/2024 14:46:05 Plan of Treatment Reminders Order Date Submit Date Provider Last Modified By Organization Details Last Modified Time Details Appointments NEW PATIENT 10 2024 09:00A Alyssa Spencer MD Not available Not available Not available Lab None recorded. Referral None recorded. Procedures None recorded. Surgeries None recorded. Imaging XR, wrist, 3 or more view - 4v rt wrist scaphoid, planetarium technician, rm 118 2024 025 [facility], [address], [place], [address], 08/15/2025 14:47:44 XR, wrist, 3 or more view - 2v lt wrist, bi illusionist, planetarium technician, rm 117 2024 025 [email or web address] [facility], [address], [place], [address], 12/29/2024 12:57:33 XR, knee, 4 or more view - LTKR pain room 2023 024 [email or web address] [facility], [address], [place], [address], 07/06/2024 13:04:06 Medication Orders Celebrex 200 mg capsule 2024 025 clay [id number], [address] [facility] [facility], [place], [address], 12/29/2024 12:57:33 Patient TargetsNo targets recorded. Patient InstructionsNo instructions recorded. Reason for Referral None Reported. Results Created Date Observation Date Name Description Value Unit Range Abnormal Flag Note LastModifiedBy Organization Detail LastModifiedTime 06/07/20 24 06/07/2024 XR, knee, 4 or more view [email or web address]:/ [email or web address] ?Encry pted=s hAaTro YD8dLq bEUv6g %2BXZw aYqtaq 0bqfl% 2Fg9IQ a4ajBk vP9nXo QUaueC m3YtLR FvZlg [address] 8c1577 AC0Koa H6DWav eUC8mr 84%3D INTERFACE [facility] [address], [place], [address], 06/07/2024 14:25:34 06/07/20 24 06/07/2024 XR, knee, 4 or more view [email or web address] ?Encry pted=s hAaTro YD8dLq bEUv6g %2BXZw aYqtaq 0bqfl% 2Fg9IQ a4ajBk vP9nXo QUaueC m3YtLR [place] [address] 5m7772 AC0Koa H6DWav eUC8mr 84%3D INTERFACE [facility] [address], [place], [address], 06/07/2024 14:25:35 07/09/20 24 04/29/2019 imagi ng/ba patel tic resul t No observ ation record ed. [email or web address] Not Available 06/12 17:25:47 12/29/19 25 12/29/2024 XR, wrist , 3 or more view [email or web address] ?Encry pted=s hAaTro YD8dLq bEUv6g %2BXZw aYqtaq 0bqfl% 2Fg9IQ a4ajBk vP9nXo QUaueC m3YtLR FvZlg J8[facility]tai[facility] 2v6140 AC0Kqb XyHV6K mKiQtr MwF INTERFACE [facility] [address], [place], [address], 12/29/2024 12:22:31 12/29/19 25 12/29/2024 XR, wrist , 3 or more view [email or web address] ?Encry pted=s hAaTro YD8dLq bEUv6g %2BXZw aYqtaq 0bqfl% 2Fg9IQ a4ajBk vP9nXo QUaueC m3YtLR FvZl[facility] Hospitalta 3n9438 AC0Kqb XyHV6K mKiQtr MwF INTERFACE [facility] [address] [address], [place], [address], 12/29/2024 12:22:33 08/15/20 25 08/15/2025 XR, wrist , 3 or more view [email or web address] ?Encry pted=s hAaTro YD8dLq bEUv6g %2BXZw aYqtaq 0bqfl% 2Fg9IQ a4ajBk vP9nXo QUaueC m3YtLR [place] [address] 1v4570 AC0Klb XmAVqW uKiQtr MwF INTERFACE [facility] [address], [place], [address], 08/15/2025 14:06:55 08/15/20 25 08/15/2025 XR, wrist , 3 or more view [email or web address] ?Encry pted=s hAaTro YD8dLq bEUv6g %2BXZw aYqtaq 0bqfl% 2Fg9IQ a4ajBk vP9nXo QUaueC m3YtLR FvZlgJ JJ8mAn HZtai3 4g4256 AC0Klb XmAVqW uKiQtr MwF INTERFACE [facility] [address] [facility] [address], [place], [address], 08/15/2025 14:06:57 Result Notes Documentation Provider Name and Address Organization Details Recorded Time Xr, Knee, 4 Or More View : [email or web address] Encrypted=ojVuQhfXH6xJrwN Uv6g%6NYWszOsfof3mtrm%2Fg 7GVo9xvDttH0wAqUIjhvGl3Vt HRVtLhzMHK7wVrLRvwd50c721 7MT4FggE7BHasiQU5gp24%3D Not Available [facility] 06/07/2024 14:2 5:34 Xr, Knee, 4 Or More View : [email or web address] Encrypted=wgQiPsiXZ8gOeiR Uv6g%8JVXdhBcyvr1adsg%2Fg 1YTw1oyKamN2nWmRYrcwSo7Bt GJBkEfkHND9pOdKOjwc90k728 5TQ2VmrC2RGxdvYV1sy85%3D Not Available [facility] 06/07/2024 14:2 5:36 Xr, Wrist, 3 Or More View : [email or web address]? Encrypted=qcJpAddGT1vOefA Uv6g%5IXPscXtwmr0eglv%2Fg 4UGn8ifYfdE8wGmCOkubVb5Pt HVArGnmKKD2jEiMHdiz93h066 8OL5PsjSbOP6UcYpOisTmE Not Available [facility] 12/29/2024 12:22: 32 Xr, Wrist, 3 Or More View : [email or web address]? Encrypted=vjCzIpgWI5uTfgO Uv6g%5GHWgdCxinl3yibi%2Fg 5FBj1roMdfE1jAdHJgdjBz9Fl QSYvSfvCQU2uEcKVfro90u711 0GK1ApdLoLA4NkAxVkjYaV Not Available [facility] 12/29/2024 12:22: 33 Xr, Wrist, 3 Or More View : [email or web address] Encrypted=rtAgSuiWW4dOfnG Uv6g%3QDZdeHpzet6bxxy%2Fg 3COk2chGtgR4dZsVIffbFq5Zz UOQbGqeBKR8xLaDRxad29z323 8NU7VbjDkPBxIgQzVwuGsP Not Available [facility] 08/15/2025 14:06: 56 Xr, Wrist, 3 Or More View : [email or web address]? Encrypted=mrTyFomQO3pTnkC Uv6g%8RXOnpZmxoe3nukl%2Fg 0XZr3mmUlsN9qQcPVtuiOa1Vx WNNhViyRXE3nQfAXcqo59k376 2OW7YnpWcUTxVcYySzvYmZ Not Available [facility] 08/15/2025 14:06: 57 Problems Name Problem SNOMED Code Status Onset Date Resolution Date Notes Provider Name and Address Organization Details Recorded Time Pain of right wrist [id number] Active 2023 Austin Gonzalez PA-C [address], [place], [address], [facility] 08:39:23 Problem Notes None recorded. Procedures Surgical History Date Name Laterality Status Provider Name and Address Organization Details Recorded Time 08/15/20 25 [facility] completed Miltno Lau MD [address], [place], [address], [facility] 08/15/2025 17:02:32 12/29/19 25 [facility] completed Milton Lau MD [address], [place], [address], [facility] 01/03/2025 07:52:22 08/04/20 24 [facility] completed Milton Lau MD [address], [place], [address], [facility] 08/04/2024 14:19:59 06/07/20 24 Sports Knee 4&1 completed Harshad Phillip PA-C [address], [place], [address], [facility] 06/07/2024 14:46:33 02/19/20 24 Hand Surgery completed CECILIA MONTIEL [facility] 04/14/2024 11:09:05 03/15/20 17 Knee Surgery completed CECILIA MONTIEL [facility] 04/14/2024 11:09:05 04/16/20 12 [facility] 04/14/2024 11:09:05 03/09/20 08 Shoulder [facility] 04/14/2024 11:09:05 Imaging Results None recorded. Procedure Notes None recorded. Medical Equipment None Reported. Allergies No known drug allergies Medications Name Sig Start Date Stop Date Status Note LastModified by Organization Details LastModified Time dbgb - diclo 3% / baclo 2% / marta 6% / bupiv hcl 1% versati Apply 1-3 grams to the affected area 3-4 times daily (KNEES) active Not Available Not Available No t Available celecoxib 200 mg capsule TAKE 1 CAPSULE BY MOUTH EVERY DAY IN THE MORNING active Not Available Not Available No t Available amoxicillin 500 mg capsule TAKE 4 CAPSULES BY MOUTH 1 HOUR PRIOR TO DENTAL APPOINTME NT 08/10 completed Not Available Not Available Not Available atorvastati n 40 mg tablet TAKE 1 TABLET BY MOUTH EVERY DAY 08/10 completed Not Available Not Available Not Available atorvastati n 20 mg tablet TAKE 1 TABLET BY MOUTH EVERY DAY 08/10 completed Not Available Not Available Not Available cetirizine 10 mg tablet TAKE 1 TABLET BY MOUTH TWICE A DAY FOR 7 DAYS 03/03 completed Not Available Not Available Not Available carbamazepi ne ER 100 mg tablet,exte nded release,12 hr TAKE 1 TABLET BY MOUTH TWICE A DAY 08/10 completed Not Available Not Available Not Available phenazopyri dine 200 mg tablet TAKE 1 TABLET BY MOUTH 3 TIMES A DAY AFTER MEALS FOR 7 DAYS active Not Available Not Available No t Available prednisone 20 mg tablet TAKE 2 TABLETS BY MOUTH EVERY DAY FOR 5 DAYS active Not Available Not Available No t Available metronidazo le 500 mg tablet TAKE 1 TABLET BY MOUTH EVERY 12 HOURS active Not Available Not Available No t Available phenytoin sodium extended 100 mg capsule TAKE 1 CAPSULE BY MOUTH 3 TIMES A DAY 03/03 completed Not Available Not Available Not Available amlodipine 5 mg tablet TAKE 1 TABLET BY MOUTH EVERY DAY active Not Available Not Available No t Available ciprofloxac in 500 mg tablet TAKE 1 TABLET BY MOUTH EVERY 12 HOURS 08/10 completed Not Available Not Available Not Available sulfamethox azole 800 mg-trimetho prim 160 mg tablet TAKE 1 TABLET BY MOUTH EVERY 12 HOURS FOR 7 DAYS active Not Available Not Available No t Available amoxicillin 875 mg tablet TAKE 1 TABLET BY MOUTH EVERY 12 HOURS FOR 10 DAYS 08/10 completed Not Available Not Available Not Available alprazolam 0.25 mg tablet FOR 1 DAY TAKE 2 TABLETS ORALLY 30 MINUTES PRIOR TO MRI (CERVICAL AND LUMBAR MRIS), MAY REPEAT ONCE 08/10 completed Not Available Not Available Not Available baclofen 10 mg tablet TAKE 1 TABLET BY MOUTH THREE TIMES A DAY 08/10 completed Not Available Not Available Not Available desoximetas one 0.25 % topical ointment APPLY TO RASH ON LEG TWICE A DAY NEEDED. NOT TO EXCEED 2 WEEKS AT A TIME active Not Available Not Available No t Available tacrolimus 0.1 % topical ointment APPLY TO FACIAL ITCHY SKIN 1-2 TIMES A DAY NEEDED active Not Available Not Available No t Available pseudoephed rine-guaife nesin ER 80-700 mg tablet,exte nded release Percocet 5-325MG Tablet 1 every 4 - 6 hours as needed 03/25 completed Statu s: 'Disc ontin ued'; Not Available Not Available Not Available ropinirole 0.5 mg tablet TAKE 1 TABLET BY MOUTH EVERY DAY AT BEDTIME 1-3 HOURS BEFORE BEDTIME active Not Available Not Available No t Available gabapentin 300 mg capsule TAKE 1 CAPSULE BY MOUTH THREE TIMES A DAY active Not Available Not Available No t Available omeprazole 20 mg capsule,del ayed release TAKE 1 CAPSULE BY MOUTH EVERY DAY active Not Available Not Available No t Available albuterol sulfate HFA 90 mcg/actuati on aerosol inhaler INHALE 2 PUFFS EVERY 6 HOURS NEEDED FOR WHEEZING/ SHORTNESS OF BREATH active Not Available Not Available No t Available ipratropium bromide 42 mcg (0.06 %) nasal spray PLEASE SEE ATTACHED FOR DETAILED DIRECTION S active Not Available Not Available No t Available trihexyphen idyl 2 mg tablet 1 MG ORALLY 2 TIMES A DAY FOR 30 DAYS GIVE WITH FOOD (MEAL/SNA CK) 03/03 completed Not Available Not Available Not Available amoxicillin 875 mg-potassiu m clavulanate 125 mg tablet TAKE 1 TABLET BY MOUTH EVERY 12 HOURS FOR 7 DAYS 08/10 completed Not Available Not Available Not Available oxycodone 5 mg tablet TAKE 1 TABLET BY MOUTH EVERY 4 HOURS NEEDED active Not Available Not Available No t Available fluocinolon e 0.025 % topical cream APPLY TO ARM FACE NECK GROIN BUTTOCK RASH TWICE A DAY NEEDED NOT TO EXCEED 2 WEEKS AT A TIME active Not Available Not Available No t Available Sinus Nasal [place] 0.05 % TAKE 2 SPRAYS (INTRANAS AL) EVERY 12 HOURS (NASAL CONGESTIO N) FOR 3 DAYS active Not Available Not Available No t Available ciclopirox 0.77 % topical cream APPLY TO FOOT RASH TWICE A DAY FOR 1 MONTH MINIMUM. MAY USE CHRONICAL LY active Not Available Not Available No t Available nitrofurant oin monohydrate /macrocryst als 100 mg capsule TAKE 1 CAPSULE BY MOUTH EVERY 12 HOURS active Not Available Not Available No t Available melatonin Melatonin 1MG Capsule 04/26 completed Statu s: 'Disc ontin ued'; Not Available Not Available Not Available oxycodone HCl-oxycodo ne-ASA 1 tab po tid prn painDO NOT DRIVE WHILE ON THIS MEDICATIO N 03/03 completed Statu s: 'Curr ent'; Not Available Not Available Not Available mirabegron ER 25 mg tablet,exte nded release 24 hr TAKE 1 TABLET BY MOUTH EVERY DAY active Not Available Not Available No t Available Anoro Ellipta 62.5 mcg-25 mcg/actuati on powder for inhalation INHALE 1 PUFFS EVERY DAY FOR 30 DAYS 08/10 completed Not Available Not Available Not Available Vitamin B12 2022 active Not Available Not Available Not Avai oscar Ding Ellipta 100 mcg-62.5 mcg-25 mcg powder for inhalation INHALE 1 PUFF EVERY DAY FOR 30 DAYS active Not Available Not Available No t Available Vitals Date Recorded Body height Body mass index (BMI) Body weight Provider Name and Address Organization Details Last Updated DateTime 12/29/2024 165.1 cm 28.3 kg/m2 64004.7 g CECILIA MONTIEL [facility] 12/29/2024 12:15:36 Date Recorded Body height Body mass index (BMI) Body weight Provider Name and Address Organization Details Last Updated DateTime 06/07/2024 165.1 cm 28.3 kg/m2 04145.7 g KELLI L'HEUREUX [facility] 06/07/2024 14:17:54 Date Recorded Body height Body mass index (BMI) Body weight Provider Name and Address Organization Details Last Updated DateTime 07/09/2024 165.1 cm 28.3 kg/m2 57222.7 g FRANCIS TAYLOR [facility] 07/09/2024 10:41:50 Date Recorded Body height Body mass index (BMI) Body weight Provider Name and Address Organization Details Last Updated DateTime 08/04/2024 165.1 cm 28.3 kg/m2 63209.7 g CECILIA MONTIEL [facility] 08/04/2024 13:12:30 Date Recorded Body height Body mass index (BMI) Body weight Provider Name and Address Organization Details Last Updated DateTime 08/15/2025 165.1 cm 28.3 kg/m2 14073.7 g [facility] 08/15/2025 14:00:57 Social History None recorded. Functional Status Question Answer Note LastModified by Organizat ion Details LastModified Time Do you or have you ever used any other forms of tobacco or nicotine? No Information not available 04/14/2024 Do you or have you ever used e-cigarettes or vape? Never used electronic cigarettes [email or web address] Information not available 04/14/2024 Mental Status None recorded. Family History Nothing Reported. Medical History No medical history recorded. Gynecological HistoryNo gynecological history recorded. Obstetrics History GPAL:G 0 P 0 0 0 0 Past Encounters Encounter ID Performer Location Encounter Start Date Encounter Closed Date Diagnosis/Indication Diagnosis SNOMED-CT Code Diagnosis ICD10 Code Diagnosis IMO Codes Diagnosis Note [id number] Nora Rivera PA-C [facility] [address] [place] [address] 03/03/2024 15:40:46 03/22/2024 12:12:33 Pain of right hand 8937995861 85893 M79.542 [id number] Milton Lau MD [facility] [address] [place] [address] 04/14/2024 10:38:56 04/28/2024 09:20:55 Carpal tunnel syndrome of right wrist [id number] 23476 G56.01 [id number] Julianne Sewell, OTR/L,CHT [facility] [address] [place] [address] 06/07/2024 14:46:06 06/07/2024 15:25:24 Carpal tunnel syndrome of right wrist 6010857152 24663 G56.01 This visit was completed today under the supervisio n of Dr. Lau Upon welcoming the patient from the waiting room into the clinic, I am able to observe how the involved extremity is used functional ly. The patient demonstrat es light use of the surgical hand for such activities as gathering personal items, and adjusting the chair. The patient shared their personal experience over the last 2 weeks living with a postoperat malinda hand and modifying activities around the house. The postoperat malinda dressing is removed. The surgical wound is inspected and found to be clean and dry. The edges of the incision are approximat ed with intact sutures. Patient has intact neurovascu lar structures with only slight tenderness at the incision. No surroundin g erythema, wound drainage, warmth or signs of infection. The patient states minimal pain when palpating around the surgical site and the surroundin g structures . The digits on the involved hand are able to demonstrat e a nearly full composite fist. Thumb is able to flex and oppose to the small finger. Digits are able to demonstrat e full extension/ hyperexten addie to open and flatten the palm. Thumb extension is limited due to osteoarthr itic changes at the MCP and CMC joint. The wrist has nearly full flexion /extension /circumduc tion range of motion. The patient is able to demonstrat e both tip, tripod, and lateral pinch. The thenar muscle shows atrophy approximat barbara 50%. Strength of the first dorsal interossei /adductor is 3/5 and is quite atrophied. The distal sensation for light touch is assessed. The patient is able to demonstrat e a positive response to light touch. The patient reports difficulti es with fine sensation as related to dexterity tasks with the thumb, index, middle fingers. With regards to the surgical scar, there is a thickness and raised area at the central portion. Scabbing, dry skin and fibrotic cells create a ridge at the volar central palm. This may prove to be detrimenta l with functional grasp tasks. Postoperative care 09705 9007 Z48.89 Sutures are removed today without complicati on. Education regarding the involved anatomy and the surgical procedure was well received. Scar massage was demonstrat ed including a variety of movements to disperse the fibrotic tissue which, if untouched, would create a thickened area of scar. This is instructed with a handout given to the patient. Further discussion with regards to lymphatic flow and the tracking of fluids down the fingers, across the palm and through the wrists to the lymph node was provided with a demonstrat ion for manual edema mobilizati on techniques . Additional home exercises including tendon gliding and median nerve gliding were demonstrat ed in the office today with a handout also provided. A small amount of therapy putty was introduced and demonstrat ed with the correspond ing worksheet was provided as well. Further discussion about the MELT technique using a small ball for pillar pain with luiza n was provided. Per the surgeon , since there are no wound care complicati ons or concerns, no follow up appointmen t needed. The patient has been educated with a significan t Home Exercise Program to be completed over the next 2 weeks. The patient was instructed to contact the office if there should arise any concerns with the surgical site or if there is not sufficient functional recovery. All questions, with regards to return to functional activities , are answered prior to leaving the office today. This office visit was complete at 30 minutes. [id number] MD Chucho Melendrez [address] [facility] [address] [place] [address] 06/02/2024 10:52:41 06/02/2024 11:17:55 Postoperative care 412331699 Z48.89 [id number] DANIELE Monk [address] [place] [address] 06/07/2024 14:05:31 07/06/2024 13:04:05 History of left total knee replacement 2371545393 119421 Z96.652 Pes anseri nus bursitis of left knee 3504751188 284967 M70.52 [id number] MD Chucho Melendrez [address] [facility] [address] [place], [place] [address] 07/09/2024 10:38:14 08/02/2024 12:25:44 Carpal tunnel syndrome of right wrist 4317476584 58711 G56.01 [id number] MD Chucho Melendrez [address] [facility] [address] [place] [address] 08/04/2024 13:05:32 08/26/2024 07:55:12 Arthritis of first carpometacarpal joint of right hand 5614113543 645979 M13.905 [id number] MD SHAYAN Melendrez [facility] [facility] [address] [place] [address] 12/29/2024 11:26:44 01/20/2025 07:25:36 Pain of left wrist 2147308179 07581 M25.532 [id number] Arthritis of left wrist 9806432682 329396 M19.032 [id number] Arthritis of first carpometacarpal joint of right hand 0741494473 531541 M18.11 [id number] MD SHAYAN Melendrez [facility] [facility] [facility] [address] [place] [place] [address] 08/15/2025 13:50:37 08/23/2025 11:04:35 Pain of right wrist 6797309394 87446 M25.531 896230 Arthritis of first carpometacarpal joint of right hand 4360336561 330913 M18.11 [id number] Health Concerns Section Related Observation LastModified by Organization Detai ls LastModified Time None Recorded Concern Status LastModified by Organization Details LastModified Time None Recorded Advance Directives Directive None Recorded Payers Insurance Date Sequence Insurance Name Policy Number Policy Ann Covered Member ID Ann Member ID Guarantor Name 08/23/2025 1 [employer] - MEDICARE ADVANTAGE PLAN (MEDICARE REPLACEMENT HMO) [id number] 01 Rebecca Cartagena [id number] Rebecca Pride Baljitmaxine Notes Date Note Type Note Provider Name and Address Organization Details Recorded Time 06/07/2024 text/html This is a patient who has had longstanding median nerve compression at the right carpal tunnel and had a release surgery on 05/28/[address] Lau. She also has significant osteoarthritis affecting the MCP and CMC joint on her right hand. Julianne Sewell OTR/L,CHT [address], [place], [address], [facility] 06/07/2024 15:25:18 07/09/2024 text/html ROS as noted in the HPI Diagnosis: Status post right carpal tunnel release.The patient presents describing worst pain that she had prior to surgery. She is unable to tolerate any pressure on her palm.Past family, medical, social history and review of systems has been reviewed, updated and is located in the patient s chart.Examination: Healthy appearing patient in no apparent distress. Alert and oriented. Her wound is well-healed. She has symmetric range of motion of wrists and digits. The patient demonstrates that her areas of tenderness but pushing very firmly on them. She has no numbness or tingling. Provocative testing of wrists and digits reveal a markedly positive first CMC grind and compression test. No atrophy in either upper extremity. Brisk capillary refill in all digitsPlan: The patient and I discussed her situation at length. I recommended continued scar desensitization and the use of a cycling glove. She will follow up as directed. Milton Lau MD [address], [place], [address], [facility] 07/09/2024 13:02:31 08/04/2024 text/html ROS as noted in the HPI Diagnosis: 1. Right first CMC arthritis 2. Status post right carpal tunnel release The patient returns her request. She is describing 10/10 pain in her right hand. She has no numbness or tingling. Past family, medical, social history and review of systems has been reviewed, updated and is located in the patient s chart. Examination: Healthy appearing patient in no apparent distress. Alert and oriented. Gross deformity right wrist consistent with severe first CMC arthritis. Well-healed surgical scar in the palm with some thickened scar. Excellent digital range of motion bilaterally. No atrophy in either upper extremity. Brisk capillary refill in all digits Plan: The patient and I discussed her situation at length. I think that the majority of her pain is due to her first CMC arthritis. I offered her corticosteroid injection and she accepted. After sterile preparation of the area, the soft tissue over the first CMC joint was injected with 2% plain lidocaine. After 5 minutes and repeat sterile preparation, the right first CMC joint was injected with 6mg of celestone. The patient tolerated the procedure well. The patient will follow up at her discretion Milton Lau MD [address] [place] [address] [address], [place], [address], [facility] 08/04/2024 14:20:58 12/29/2024 text/html ROS as noted in the HPI Diagnosis: 1. 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 Volar ganglion cyst left wrist 3. Severe osteoarthritis left wrist The patient presents at her request. She had several months relief with her last injection it would like to consider another 1. Additionally she has noted painless masses developing over the volar aspect of her left wrist. She believes them to be cyst but has some concerns. Past family, medical, social history and review of systems has been reviewed, updated and is located in the patient s chart. Examination: Healthy appearing patient in no apparent distress. Alert and oriented. Decreased left wrist range of motion compared to the right. Provocative testing of the right wrist reveals no instability. Provocative testing of the left wrist reveals a markedly positive first CMC grind and compression test. No atrophy in either upper extremity. Brisk capillary refill in all digits X-rays ordered, obtained, and reviewed today at [facility]: PA and lateral of the left wrist as well as bilateral illusionist views demonstrate scapholunate gap and arthritic change between the ulna and the elongated ulna. Plan: The patient and I discussed her situation at length. I explained that the masses are likely due to her arthritis. They can only be eliminated by treating the arthritis. She is too functional to consider treatment for arthritis at this time. We also discussed her first CMC arthritis. Her options include a repeat injection or surgery. I reviewed with her the nature of the surgery and its potential risks including infection, injury to blood vessels, tendons, nerves, failure of the procedure and stiffness of her thumb. All her questions were answered. She would like to proceed with an injection and she tolerated it well Milton Lau MD [address] [facility] [address], [place], [address], [facility] 01/03/2025 07:53:40 08/15/2025 text/html ROS as noted in the HPI Diagnosis: Pantrapezial arthritis right wrist The patient presents with pain over the radial aspect of her wrist wrist. This developed after a fall from a 2 step height 4 weeks ago. She sustained no other injuries. Past family, medical, social history and review of systems has been reviewed, updated and is located in the patient s chart. Examination: Healthy appearing patient in no apparent distress. Alert and oriented. Swelling volar aspect right wrist. She is tender over her first CMC and STT joints. She has a markedly positive first CMC grind test. She has no tenderness over her anatomic snuffbox no atrophy in either upper extremity. Brisk capillary refill in all digits X-rays ordered, obtained, and reviewed today at [facility]: PA, lateral, oblique views of the right wrist as well as a scaphoid view reveal no evidence of fracture or dislocation. She does have pantrapezial arthritis Plan: We discussed her options in detail. The patient would like to proceed with a corticosteroid injection. Before undergoing the injection the soft tissue overlying the right first CMC joint and the right STT joint was infiltrated with 2% plain lidocaine. She tolerated the injection well Milton Lau MD [address], [place], [address], [facility] 08/15/2025 17:03:02 OBGyn Episode No OBEpisode recorded.
--- OUTSIDE RECORDS SUMMARY | 2025-09-12 13:18 | XMS_ITS | Clinical Summary ---
Author Organization [employer] Address [address] [place] [address] Care Team Providers Care Shiftman Name Role Phone Nir Sun MD Primary Care Provider [phone]- [phone] Allergies No known active allergies Medications albuterol [...] 63 05/22/2023 7:00 PM EDT Temperature 36.6 C (97.8 F) 05/22/2023 4:00 PM EDT Respiratory Rate 12 05/22/2023 7:00 PM EDT Oxygen Saturation 93% 05/22/2023 7:00 PM EDT Inhaled Oxygen Concentration - - Weight 77.1 kg (170 lb) 05/19/2020 2:10 PM EDT Height 167.6 cm (5' 6 ) 05/19/2020 2:10 PM EDT Body Mass Index 27.44 05/19/2020 2:10 PM EDT Plan of Treatment Health Maintenance Due Date Last Done Comments Hepatitis C Screening 1950 Mammogram 1950 Medicare Annual Wellness Visit 1968 Pneumococcal Vaccine: 50+ Years (1 of 2 - PCV) 1968 Tdap and Td Vaccines Adult 1968 Osteoporosis Screening 1999 Zoster Vaccines (1 of 2) 1999 Fall Risk Screening 2014 RSV 60+ (1 - 1-dose 75+ series) 2024 COVID-19 Vaccine (3 - 2024-2 6 season) 2025 02/14/2021, 01/16/2021 Influenza Vaccine (#1) 2025 HIB Vaccines Aged Out No longer eligi ble based on patient's age to complete this topic HPV Vaccines (No Doses Required) Completed Hepatitis A Vaccines Aged Out No long [...] patient's age to complete this topic Insurance MANAGED MEDICARE GENERIC Care Teams Shiftman Relationship Specialty Start Date End Date Nir Sun MD [address] [place] [address] PCP - General Internal Medicine 05/22/23
--- OUTSIDE RECORDS SUMMARY | 2025-09-12 13:18 | XMS_ITS | Encounter Summary ---
Author Organization [employer] Address [address] [place] [id number] Care Team Providers Care Meat Service Team Member Name Role Phone Nir Sun MD Primary Care Provider +1- [phone] Encounter Details Date Type Department Care Team (Late st Contact Info) Description 05/22/2023 Procedure Pass [facility] Radiology, [facility] (CT Scan) [address] [place] [id number] Social History Tobacco Use Types Packs/Day Years [...] on filedocumented in this encounter Care Teams Meat Service Team Member Relationship Specialty Start Date End Date Nir Sun MD [address] [place] [address] PCP - General Internal Medicine 05/22/23 documented as of this encounter
== END 2025-09-12 12:12 | disposition home or self-care (01) ==
LOC: HO.HSMS 10:49
PROVIDERS: PCP Internal Medicine; Visit Provider Nurse Practitioner Family
DX: R25.2 Cramp and spasm (principal); R20.2 Paresthesia of skin; M54.2 Cervicalgia; G62.89 Other specified polyneuropathies; G25.81 Restless legs syndrome
CPT/HCPCS: 99214

== ENCOUNTER 2025-09-12 10:49 | Outpatient (REF) | payer MEDICARE, SELFPAY ==
[2025-09-12 18:09] LABS: MANUAL DIFF FLAG NO
[2025-09-12 18:39] LABS: Alanine Aminotransferase 39 U/L (0-31); Albumin Level 4.4 g/dL (3.5-5.0); Alkaline Phosphatase 75 U/L (39-117); Anion Gap 13 (12-20); Aspartate Amino Transferase 49 U/L (5-31); Blood Urea Nitrogen 21 mg/dL (9-16); Calcium 9.4 mg/dL (8.4-10.2); Carbon Dioxide 25 mmol/L (22-29); Chloride 105 mmol/L (96-108); Estimated Glomerular Filt Rate 59; Iron 89 mcg/dL (30-160); Magnesium 2.3 mg/dL (1.6-2.6); Percent Iron Saturation 29 % (15-50); Potassium 4.2 mmol/L (3.3-5.1); Sodium 139 mmol/L (135-145); Total Iron Binding Capacity 307 mcg/dL (228-428); Total Protein 6.9 g/dL (6.5-8.0); Unsaturated Iron Binding 218 ug/dL
[2025-09-12 18:42] LABS: Hematocrit 38.8 % (37.0-47.0); Hemoglobin 12.7 g/dl (12.0-16.0); Imm Gran Abs Auto 0.01 X10*3/uL (0.00-0.03); Imm Gran Pct Auto 0.3 % (0.0-0.4); Lymphocytes Absolute Auto 1.6 X10*3/uL (1.2-4.9); Mean Corpuscular HGB Conc 32.7 g/dl (31.0-35.0); Mean Corpuscular Hemoglobin 31.6 pg (27.0-33.0); Mean Corpuscular Volume 96.5 fL (80.0-98.0); NRBC Abs Auto 0.000 X10*3/uL (0.0-0.012); NRBC Pct Auto 0.0 /100WBC (0.0-0.2); Platelet Count 288 X10*3/uL (160-400); Red Blood Count 4.02 X10*6/uL (4.20-5.50); White Blood Count 3.4 X10*3/uL (4.8-10.8)
[2025-09-12 19:00] LABS: Ferritin 185 ng/mL (10-250)
[2025-09-12 19:12] LABS: Folate 8.1 ng/mL (> or = 4.0); Vitamin B12 444 pg/mL (200-900)
[2025-09-13 19:58] LABS: Proteinase 3 PR3 Antibodies <1.0 AI
[2025-09-13 21:43] LABS: Prot Elec - Albumin 4.2 g/dL (3.8-4.8); Prot Elec - Alpha1 0.3 g/dL (0.2-0.3); Prot Elec - Alpha2 0.7 g/dL (0.5-0.9); Prot Elec - Beta 1 0.5 g/dL (0.4-0.6); Prot Elec - Beta 2 0.4 g/dL (0.2-0.5); Prot Elec - Gamma 0.7 g/dL (0.8-1.7); Prot Elec - Total Protein 6.6 g/dL (6.1-8.1)
[2025-09-16 04:34] LABS: Myoglobin,Serum 115 mcg/L (<=66)
[2025-09-19 16:59] LABS: Anti Nuclear Antibody Screen NEGATIVE (NEGATIVE)
[2025-09-20 11:12] LABS: MDA5 Ab <11 SI (<11); NXP-2 (MJ) Ab <11 SI (<11); SRP Ab <11 SI (<11)
== END 2025-09-12 10:50 | disposition home or self-care (01) ==
LOC: HO.HKASLDS 10:49
PROVIDERS: PCP Internal Medicine; Visit Provider Nurse Practitioner Family
DX: G62.89 Other specified polyneuropathies (principal); M54.2 Cervicalgia; G25.81 Restless legs syndrome; D64.9 Anemia, unspecified
CPT/HCPCS: 36415; 80053; 82550; 82607; 82728; 82746; 83540; 83735; 83874; 84165; 84182; 85025; 85652; 86021; 86038; 86160; 86225; 86235; 99212